=== PATIENT | male | born 1950 | race African-American/Black ===

== ENCOUNTER 2021-04-30 11:20 | Day surgery (SDC) | payer OTHER, SELFPAY ==
[2021-04-20 16:26] VITALS: BMI 26.9
--- NOTE | 2021-04-29 15:55 | P.CONAN_ITS ---
Documented by User: Blanche Perdue NP 04/29/21 16:07 HPI - Anesthesia Eval Consult details Narrative: 70yo M for Colonoscopy [facility] Active Problems Active Problems: All Active Problems (Updated 04/14/21 @ 11:12 by Dylan Shabazz MD) Screening for colon cancer (Acute) Loss of appetite (Acute) Erectile dysfunction (Acute) Physical exam (Acute ~04/07/21) Hypercholesterolemia (Acute) Hypertension (Acute) Past Medical History Medical History Hypercholesterolemia Hypertension Family History Family History (Updated 04/07/21 @ 14:01 by CARLA Tyler) Mother No problems noted. Father No problems noted. Surgical History Surgical History No pertinent past surgical history Social History Social History Housing: House Alcohol intake: current Alcohol intake frequency: holidays/special occasions only Alcohol type: beer and wine Patient Tobacco Use Status: Never used Tobacco e-Cigarette/Vaping Use: Never Used Second Hand Smoke Exposure: No Use of substances other than those prescribed or required for medical reasons: No Are you DNR?: No Advance Directives: No Advance Directives Information Provided: Yes service: No Current occupational status: retired Meds Allergies Allergy/AdvReac Type Severity Reaction Status Date / Time No Known Allergies Allergy Verified 04/07/21 14:13 Exam Exam Date and Time: April 29, 2021 1555 Height,Weight and Vital Signs: Height 5 ft 6 in Weight 75.75 kg Assessment and Plan Assessment Anesthesia Assessment: Chart Reviewed Documented by User: Onesimo Nava MD 04/30/21 12:23 [facility] Past Medical History Medical History Hypercholesterolemia Hypertension Family History Family History (Updated 04/07/21 @ 14:01 by CARLA Tyler) Mother No problems noted. Father No problems noted. Family history of problems with anesthesia: No Surgical History Surgical History No pertinent past surgical history History of Problems with Anesthesia: No Social History Social History Housing: House Alcohol intake: current Alcohol intake frequency: holidays/special occasions only Alcohol type: beer and wine Patient Tobacco Use Status: Never used Tobacco e-Cigarette/Vaping Use: Never Used Second Hand Smoke Exposure: No Use of substances other than those prescribed or required for medical reasons: No Are you DNR?: No Advance Directives: No Advance Directives Information Provided: Yes service: No Current occupational status: retired [employer] Allergies Allergy/AdvReac Type Severity Reaction Status Date / Time No Known Allergies Allergy Verified 04/07/21 14:13 Exam Airway Mallampati Class: II TM Dist: >3cm Neck ROM: Full Loose/Missing/Broken Teeth: Yes Heart: rrr+[id number] Lungs: cta b/l Assessment and Plan Assessment Anesthesia Assessment: Anesthesia Plan Discussed Final Anesthetic Review Family History of Problems with Anesthesia: No History of Problems with Anesthesia: No NPO: Yes ASA Class: III Final Preanesthetic Review: No Changes in Pt Med Stat, Meds/Allgs Chart Reviewed, Consent Obtained/Reviewed and Anes Risks/Benef Reviewed Patient Risk: Intermediate Procedure Risk: Intermediate Assessment/Block/Sedation in SS: Assess/Block/Sedation-SS Anesthetic Plan Anesthetic Plan: MAC: and Agree w/ Assess. and Plan Disposition: Standard PACU
[2021-04-30 11:43] VITALS: BP 143/86; PULSE 72; RESP 16; TEMP 36.8; O2SAT 98; BMI 25.8
--- NOTE | 2021-04-30 12:05 | MHC.SHP ---
Pre-Procedural Eval Section A Date of Service: 04/30/21 The patient is an INPATIENT: No The History & Physical has been completed within 30 days and I have reviewed it.: No Section B Chief Complaint: Screening Details of Present Illness: Colon cancer screening Relevant Family History (Specify if Yes): No Relevant Social History: None Present Medications: see Short Stay Collaborative assessment Medical History: Significant History (Hypertension, hypercholesterolemia) History of Previous Operations: Relevant previous surgery/procedure and date(s) (apendectomy 30 yrs ago) Allergies: Allergies Allergy/AdvReac Type Severity Reaction Status Date / Time No Known Allergies Allergy Verified 04/07/21 14:13 Review of Systems Sugical H&P ROS: Negative: Constitution, Cardiovascular, Respiratory and Gastrointestinal Exam Surgical H&P Exam: Normal: Heart, Normal: Lungs, Normal: Extremities and Normal: Abdomen Plan Diagnosis/Plan: Unchanged I have reviewed the history and physical and performed a pertinent physical examination on my patient. No changes have occurred unless specified.
--- NOTE | 2021-04-30 12:16 | P.OP_ITS ---
Operative Note Operative Note Date of Service: 04/30/21 Narrative: Pre-op diagnosis:?Colon cancer screening - pt scheduled for colonoscopy by his PCP via Direct access Post-op diagnosis:?other (Colon polyps, hemorrhoids) Procedure:? COLONOSCOPY TILL CECUM WITH BIOPSIES, SNARE POLYPECTOMY AND SUBMUCOSAL INJECTION Consent: Indications for the procedure and potential complications of bleeding, perforation, reaction to medications and missed diagnosis were discussed with the patient and informed consent was obtained. Instrument: Olympus PCF H 190 L variable stiffness pediatric colonoscope Monitoring: Vital signs and clinical assessment, intermittent blood pressure monitoring, continuous EKG monitoring, Pulse oximetry and Carbon Dioxide monitoring were done throughout the procedure. Colon withdrawl time was 18 minutes. Procedure: The patient was placed in the left lateral decubitis position and pre-procedure medications were administered. After a digital rectal examination of the ano-rectum, the video colonoscope was inserted into the rectum and advanced through the colon to the cecum. The colonoscope was slowly withdrawn in a retrograde panoramic fashion and the colon mucosa was carefully examined including a retroflexed view of the rectum. Findings and interventions are described below. Procedure Difficulty:? Colon was long and tortuous and there was some mloop formation - no manuvers were required. Findings: Terminal Ileum: Not evaluated Cecum:? Normal Ascending Colon:? Normal Transverse Colon:? Normal Descending Colon:? Normal Sigmoid Colon:? A 2-3 mm sessile polyp removed with a cold biopsy. A 2 to 2.5 cms pedunculated polyp at 30 cms removed with a hot snare.? Polypectomy site was marked by adrienne ink (submucosal injection). Rectum:? Normal Ano-rectum:? Moderate internal hemorrhoids Colon preparation:? Good? Impression and Post Procedure Diagnosis: Colonoscopy Findings: One medium sized and one small polyps removed Moderate hemorrhoids on retroflexed exam. Plan: Patient will be sent a letter with pathology results and recommendations for timing of next colonoscopy. Patient has an appointment on 07/29/21 with his PCP. Repeat Colonoscopy interval based on path results - in 2 years if polyps are adenomatous to check polypectomy site in the sigmoid colon and 10 years if polyps are hyperplastic. (Adult colonoscope for future colonoscopies). Above findings were reviewed with the patient and colon polyps handout was given in the discharge area Surgeon:?Destin Vaughn MD Anesthesia:?MAC (Fany Egan CRNA) Was an Assurance Assistant used for this Procedure?:?Yes Assurance Assistant:?Billie Connors Estimated blood loss (mL):?0 Pathology:?other (A- SIGMOID POLYPS X 2 AT 30CM) Condition:?stable Disposition:?PACU
[2021-04-30] MEDS: Lactated Ringers 1,000 ML 100 ML IVCONT (12:17)
[2021-04-30 13:06] VITALS: BP 111/70; PULSE 66; RESP 20; TEMP 37.2; O2SAT 100
[2021-04-30 13:38] VITALS: BP 131/70; PULSE 68; RESP 16; TEMP 37.2; O2SAT 99
== END 2021-04-30 14:06 | disposition home or self-care (01) ==
PROVIDERS: PCP Internal Medicine; Visit Provider Internal Medicine Gastroenterology
PROC: 0DJD8ZZ Inspection of Lower Intestinal Tract, Via Natural or Artificial Opening Endoscopic (ICD-10-PCS; CPT 45378; principal; 2021-04-30 12:40)
DX: Z12.11 Encounter for screening for malignant neoplasm of colon (principal); D12.5 Benign neoplasm of sigmoid colon; K64.8 Other hemorrhoids; I10 Essential (primary) hypertension; E78.00 Pure hypercholesterolemia, unspecified; Z79.899 Other long term (current) drug therapy
CPT/HCPCS: 45385; 45380; 45381; 88305

== ENCOUNTER 2021-12-16 13:54 | Outpatient (REF) | payer OTHER, SELFPAY ==
[2021-12-16 14:38] LABS: Hematocrit 36.7 % (42.0-52.0); Hemoglobin 12.9 g/dl (14.0-18.0); Mean Corpuscular HGB Conc 35.1 g/dl (31.0-36.0); Mean Corpuscular Hemoglobin 30.1 pg (27.0-33.0); Mean Corpuscular Volume 85.5 fL (80.0-98.0); Mean Platelet Volume 9.1 fL (9.4-12.4); Platelet Count 306 X10*3/uL (160-400); Red Blood Count 4.29 X10*6/uL (4.60-5.80); Red Cell Distribution Width 13.2 % (11.0-16.0); White Blood Count 4.5 X10*3/uL (4.8-10.8)
[2021-12-16 15:46] LABS: Alanine Aminotransferase 18 U/L (0-40); Albumin Level 4.7 g/dL (3.5-5.0); Alkaline Phosphatase 46 U/L (39-117); Anion Gap 15 (12-20); Aspartate Amino Transferase 14 U/L (5-37); Bilirubin Direct 0.3 mg/dL (0.0-0.5); Bilirubin Total 0.8 mg/dL (0.0-1.0); Blood Urea Nitrogen 12 mg/dL (9-16); Calcium 9.1 mg/dL (8.4-10.2); Carbon Dioxide 30 mmol/L (22-29); Chloride 101 mmol/L (96-108); Cholesterol 166 mg/dL; Estimated Glomerular Filt Rate > 60; Glucose Random 107 mg/dL (60-115); HDL Cholesterol 34 mg/dL; LDL Cholesterol Calculated 93 mg/dl; Potassium 3.3 mmol/L (3.3-5.1); Sodium 143 mmol/L (135-145); Total Protein 7.6 g/dL (6.5-8.0); Triglycerides 195 mg/dL
[2021-12-16 16:07] LABS: Thyroid Stimulating Hormone 1.62 uIU/mL (0.32-4.0)
[2021-12-16 17:29] LABS: Appearance Urine Cloudy; Color Urine Yellow; Glucose Urine UA Negative (Negative); Leukocyte Esterase Urine Negative (Negative); Nitrite Urine Negative (Negative); Specific Gravity - Urine 1.015 (1.005-1.025); Urine Blood Negative (Negative); Urine Ketones Negative (Negative); Urine Protein Negative (Neg-Trace)
== END 2021-12-16 13:55 | disposition home or self-care (01) ==
LOC: HO.LAB 13:54
PROVIDERS: PCP Internal Medicine; Visit Provider Nurse Practitioner Family
DX: I10 Essential (primary) hypertension (principal)
CPT/HCPCS: 36415; 80048; 80061; 80076; 81003; 84443; 85027

== ENCOUNTER 2022-03-31 10:59 | Outpatient (REF) | payer OTHER, SELFPAY ==
[2022-03-31 11:58] LABS: Hematocrit 37.9 % (42.0-52.0); Hemoglobin 13.3 g/dl (14.0-18.0); Mean Corpuscular HGB Conc 35.1 g/dl (31.0-36.0); Mean Corpuscular Hemoglobin 30.4 pg (27.0-33.0); Mean Corpuscular Volume 86.7 fL (80.0-98.0); Mean Platelet Volume 9.3 fL (9.4-12.4); Platelet Count 318 X10*3/uL (160-400); Red Blood Count 4.37 X10*6/uL (4.60-5.80); White Blood Count 5.1 X10*3/uL (4.8-10.8)
[2022-03-31 13:01] LABS: Alanine Aminotransferase 16 U/L (0-40); Albumin Level 4.8 g/dL (3.5-5.0); Alkaline Phosphatase 49 U/L (39-117); Anion Gap 12 (12-20); Aspartate Amino Transferase 13 U/L (5-37); Bilirubin Direct 0.3 mg/dL (0.0-0.5); Bilirubin Total 1.1 mg/dL (0.0-1.0); Blood Urea Nitrogen 12 mg/dL (9-16); Calcium 9.1 mg/dL (8.4-10.2); Carbon Dioxide 32 mmol/L (22-29); Chloride 103 mmol/L (96-108); Cholesterol 166 mg/dL; Estimated Glomerular Filt Rate > 60; Glucose Random 131 mg/dL (60-115); HDL Cholesterol 40 mg/dL; LDL Cholesterol Calculated 98 mg/dl; Potassium 3.6 mmol/L (3.3-5.1); Prostate Specific Antigen Scr 1.28 ng/mL (<0.05-4.0); Sodium 143 mmol/L (135-145); Thyroid Stimulating Hormone 1.93 uIU/mL (0.32-4.0); Total Protein 7.5 g/dL (6.5-8.0); Triglycerides 141 mg/dL
== END 2022-03-31 11:00 | disposition home or self-care (01) ==
LOC: HO.LAB 10:59
PROVIDERS: PCP Internal Medicine; Visit Provider Internal Medicine
DX: Z12.5 Encounter for screening for malignant neoplasm of prostate (principal); I10 Essential (primary) hypertension
CPT/HCPCS: 36415; 80048; 80061; 80076; 84153; 84443; 85027

== ENCOUNTER 2022-06-11 09:43 | Outpatient (REF) | payer OTHER, SELFPAY ==
--- NOTE | ~2022-06-11 | XR_ITS ---
EXAMINATION: XR KNEE, LEFT CLINICAL INFORMATION: Arthritis COMPARISON: None TECHNIQUE: Four views of the left knee. FINDINGS: Moderate medial compartment joint space narrowing, marginal osteophytes. Tibial spine spurring. Small patellar osteophytes. Limited evaluation of the patellofemoral joint space. Lateral compartment is maintained. No acute fracture or dislocation. Moderate joint effusion. Quadriceps tendon insertional enthesopathy. Vascular calcification. Small chronic appearing ossification adjacent to the fibular head. XR/XR knee LT 4V IMPRESSION: Moderate medial compartment osteoarthritis. Patellofemoral compartment arthritis. Moderate effusion.
== END 2022-06-11 09:44 | disposition home or self-care (01) ==
LOC: HO.HMGCX 09:43
PROVIDERS: PCP Internal Medicine; Visit Provider Internal Medicine
DX: M17.12 Unilateral primary osteoarthritis, left knee (principal)
CPT/HCPCS: 73564

== ENCOUNTER 2022-07-07 08:27 | Outpatient (REF) | payer OTHER, SELFPAY ==
--- NOTE | ~2022-07-07 | XR_ITS ---
STUDY: 3 VIEWS OF THE LEFT KNEE CLINICAL INDICATION: Pain COMPARISON: Knee radiographs 06/11/2022 XR/XR knee LT 2V FINDINGS/IMPRESSION: Patella liz. Joint effusion is present, improved in comparison to prior study. There is tricompartmental osteoarthritis, worse in the medial compartment. No acute fractures or dislocations. Vascular calcifications noted posteriorly.
--- NOTE | ~2022-07-07 | XR_ITS ---
STUDY: 3 VIEWS OF THE LEFT KNEE CLINICAL INDICATION: Pain COMPARISON: Knee radiographs 06/11/2022 XR/XR knee standing BI FINDINGS/IMPRESSION: Patella liz. Joint effusion is present, improved in comparison to prior study. There is tricompartmental osteoarthritis, worse in the medial compartment. No acute fractures or dislocations. Vascular calcifications noted posteriorly.
== END 2022-07-07 08:28 | disposition home or self-care (01) ==
LOC: HO.HOSX 08:27
PROVIDERS: PCP Internal Medicine; Visit Provider Orthopaedic Surgery
DX: M17.12 Unilateral primary osteoarthritis, left knee (principal); M25.462 Effusion, left knee
CPT/HCPCS: 20610; 73560; 73565; 99202; J1100

== ENCOUNTER → 2022-08-29 08:52 | Outpatient (BNVA) | payer OTHER, SELFPAY | PROVIDERS: PCP Internal Medicine; Visit Provider Orthopaedic Surgery | DX: M17.12 Unilateral primary osteoarthritis, left knee (principal) | CPT/HCPCS: 99212 ==

== ENCOUNTER → 2022-09-26 07:56 | Outpatient (BNVA) | payer OTHER, SELFPAY | PROVIDERS: PCP Internal Medicine; Visit Provider Orthopaedic Surgery | DX: M17.12 Unilateral primary osteoarthritis, left knee (principal) | CPT/HCPCS: 99212; J1100 ==

== ENCOUNTER 2022-11-14 13:46 | Outpatient (AMB) | payer OTHER, SELFPAY ==
--- NOTE | 2022-11-14 13:55 | MHC.OFFVIS ---
Intake Intake Visit Reasons: OV-LT TKA 01/17/23 NE Intake Note: Tobi is a 71 year old male who presents today for a follow up of his left knee, he is booked for Left TKA 01/17/23. Allergies No Known Allergies Allergy (Verified 09/26/22 08:13) HPI OV-LT TKA 01/17/23 NE HPI Details Tobi is a 71 year old man with severe left knee OA. He was last injected on 07/07/22, and is scheduled for a left TKA on 01/17/23. He had some questions about his surgery. He is planning to return to [facility] for several weeks to stay with his before he returns to have surgery. [facility] Medical History Hypercholesterolemia Hypertension Osteoarthritis of left knee Surgical History History of colonoscopy Family History Mother No problems noted. Father No problems noted. Social History Housing: House Alcohol intake: current Alcohol intake frequency: holidays/special occasions only Alcohol type: beer and wine Patient Tobacco Use Status: Never used Tobacco e-Cigarette/Vaping Use: Never Used Second Hand Smoke Exposure: No service: No Current occupational status: retired Cognitive needs: No Hearing needs: No Vision needs: Yes (glasses) Review of Systems Const All systems reviewed & are unremarkable except as noted in HPI and below Physical Exam Const General: no acute distress and alert Orientation/consciousness: patient oriented x3 Neuro General: patient oriented x3 Extrem Other: Left knee varus. Antalgic gait and medial compartment TTP. Psych Appearance: grossly normal Affect: normal affect Attitude: cooperative Results Reviewed Results Reviewed: I personally reviewed relevant radiographs. Joint effusion is present, improved in comparison to prior study. There is tricompartmental osteoarthritis, worse in the medial compartment. No acute fractures or dislocations. Vascular calcifications noted posteriorly. Assessment & Plan Assessment & Plan (1) Osteoarthritis of left knee: Code(s): M17.12 - Unilateral primary osteoarthritis, left knee Plan: This is a 71 year old man with severe left knee OA, with varus alignment. He has pain with daily activity, worse with standing from a seated position, and had mild relief from his most recent steroid injection on 07/07/22. He is scheduled for a left TKA on 01/17/23, and would like to speak with Neris concerning the surgery. I recommend he continue to remain active as tolerated, using his unloading brace. He would like to continue working until the end of November. He is scheduled for surgery and we will see him for his pre-operative education and clearance appointment on 01/12/23. Plan Scribed for Nabeel Varela MD by Jason Garcia, medical front desk specialist, on 11/14/22 at 2:20 PM, EST. Coding Level of Care Code Est Pt Level 3 (97998) Diagnoses Osteoarthritis of left knee M17.12
== END 2022-11-14 14:37 | disposition home or self-care (01) ==
PROVIDERS: PCP Internal Medicine; Visit Provider Orthopaedic Surgery
DX: M17.12 Unilateral primary osteoarthritis, left knee (principal)
CPT/HCPCS: 99213

== ENCOUNTER → 2022-11-14 13:46 | Outpatient (BNVA) | payer OTHER, SELFPAY | PROVIDERS: Visit Provider Orthopaedic Surgery | DX: M17.12 Unilateral primary osteoarthritis, left knee (principal) | CPT/HCPCS: 99212 ==

== ENCOUNTER 2023-01-02 09:32 | Outpatient (AMB) | payer OTHER, SELFPAY ==
--- NOTE | 2023-01-02 10:05 | A.OFFPC_ITS ---
Vital Signs 01/02/23 10:07 Height 5 ft 6 in Weight 169 lb 8 oz BMI 27.4 BP 110/72 Blood Pressure Location Lt brachial Position Sitting Pulse 69 Pulse Source Pulse Oximeter Pulse Oximetry (%) 98 Oxygen Delivery Method Room Air Intake Visit Reasons: L total knee arthroplasty-01/17 Intake Note: Patient is here for a Pre-op for left total knee arthoplasty scheduled with Dr Vega ([facility]) on 01/17/23. 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 Required: No Locksmith: Not Required per policy Accompanied by: Self / Same As Patient Allergies No Known Allergies Allergy (Verified 01/02/23 10:06) Tobacco use date assessed: 01/02/23 Fall risk assessment: No Falls in past year Last assessed Fall Risk: 01/02/23 Dental Screening Dental Screen Date: 01/02/23 Did you have a dental visit in the last 12 months?: Yes Did you have a dental problem in the last 6 months where you did not have access to dental care?: No Was dental information given to patient?: Patient has dentist HPI HPI Comments History of Present Illness Details 72-year-old male past medical history si gnificant for hypertension and hypercholesteremia. Patient Dr. Lepe presents today for preop visit. Patient undergoing a left total knee arthroplasty on 01/17/[address] Mcintyre under general anesthesia. Patient denies any previous complications to being under anesthesia. Patient denies any chest pain, palpitations, shortness of breath and syncope. Preop blood work ordered. EKG obtained in office. EKG: SR, possible LVH. [facility] Medical History Hypercholesterolemia Hypertension Osteoarthritis of left knee Surgical History History of colonoscopy Family History Mother No problems noted. Father No problems noted. Social History Housing: House Alcohol intake: current Alcohol intake frequency: holidays/special occasions only Alcohol type: beer and wine Patient Tobacco Use Status: Never used Tobacco e-Cigarette/Vaping Use: Never Used Second Hand Smoke Exposure: No service: No Current occupational status: retired Cognitive needs: No Hearing needs: No Vision needs: Yes (glasses) Questionnaire Thrive Questionnaire Date Thrive assessed: 08/18/22 LEVAR-7 AMB Questionnaire LEVAR-7 Date LEVAR - 7 assessed: 08/18/22 Source: Developed by Drs. Kevin Linder, Natividad Johnson, Filemon Flanagan and colleagues, with an educational jaret from [employer]. Review of Systems Const Denies chills, Denies fatigue, Denies fever(s) and Denies poor appetite Eyes Denies no additional complaints ENT Reports Normal hearing present Card Denies chest pain, Denies syncope, Denies rapid heart rate and Denies dyspnea Resp Denies cough and Denies dyspnea GI Denies change in stool character, Denies constipation, Denies diarrhea, Denies nausea and Denies vomiting Denies dysuria, Denies urinary frequency and Denies urinary urgency Neuro Reports Normal hearing present, Denies confusion and Denies syncope Psych Denies confusion Endo Denies fatigue Physical exam (Primary Care) Vital Signs: Last Vital Signs Pulse 69 01/02/23 10:07 BP 110/72 01/02/23 10:07 Pulse Ox 98 01/02/23 10:07 Oxygen Delivery Method Room Air 01/02/23 10:07 BMI result Body Mass Index 27.4 Tobacco/Smoking Status: Tobacco use Status Tobacco use date assessed 01/02/23 01/02/23 11:04 Patient Tobacco Use Status Never used Tobacco 01/02/23 11:04 e-Cigarette/Vaping Use Never Used 01/02/23 11:04 Thrive Assessment: Date of Thrive Assessment Date Thrive assessed 08/18/22 01/02/23 11:04 Const General: No confusion Orientation/consciousness: No confusion HENMT Head: Yes normocephalic and Yes atraumatic Eyes Conjunctivae: conjunctivae normal Chest Chest palpation & inspection: normal inspection of the chest Resp Effort & Inspection: normal respiratory effort Auscultation: clear to auscultation bilaterally, no crackles, no rhonchi and no wheezes Cardio Rate: regular rate Rhythm: regular rhythm Heart sounds: S1 normal heart sound present and S2 normal heart sound present GI Inspection: Yes normal to inspection Neuro General: No confusion Cranial nerves: Yes Normal hearing present Extrem General: No edema Assessment and Plan Assessment & Plan (1) Essential hypertension: Code(s): I10 - Essential (primary) hypertension Plan: Continue on losartan 100 mg daily and amlodipine 20mg daily. Blood pressure optimal in office today (2) Preop examination: Code(s): Z01.818 - Encounter for other preprocedural examination Plan: EKG: SR, possible LVH. Pro-op labs ordered. Once preop labs reviewed an addendum will be made to this note with patient able to proceed with scheduled surgery. Patient advised to hold any blood thinning medications such as aspirin,ibuprofen or any other NSAIDs 1 week prior to procedure. Plan Keep scheduled follow up with pcp or follow up sooner if needed. Orders: Orders TSH reflex Free T4 Today Z01.812 - Encounter for preprocedural laboratory examination Complete Blood Count no Diff Today Z01.812 - Encounter for preprocedural laboratory examination Comprehensive Met. Panel Today Z01.812 - Encounter for preprocedural laboratory examination Prothrombin Time INR Today Z01.812 - Encounter for preprocedural laboratory examination Medications: Refilled simvastatin 20 mg PO BEDTIME 90 tabs 1RF Coding Level of Care Code Est Pt Level 3 (18153) Diagnoses Essential hypertension I10 Preop examination Z01.818
[2023-01-02 10:07] VITALS: BP 110/72; PULSE 69; O2SAT 98; BMI 27.4
== END 2023-01-02 12:16 | disposition home or self-care (01) ==
PROVIDERS: PCP Internal Medicine; Visit Provider Nurse Practitioner Family
DX: I10 Essential (primary) hypertension (principal); Z01.818 Encounter for other preprocedural examination
CPT/HCPCS: 99213

== ENCOUNTER 2023-01-02 11:39 | Outpatient (REF) | payer OTHER, SELFPAY ==
[2023-01-02 13:39] LABS: Hematocrit 37.3 % (42.0-52.0); Hemoglobin 13.3 g/dl (14.0-18.0); Mean Corpuscular HGB Conc 35.7 g/dl (31.0-36.0); Mean Corpuscular Hemoglobin 30.7 pg (27.0-33.0); Mean Corpuscular Volume 86.1 fL (80.0-98.0); Mean Platelet Volume 9.2 fL (9.4-12.4); Platelet Count 334 X10*3/uL (160-400); Red Blood Count 4.33 X10*6/uL (4.60-5.80); Red Cell Distribution Width 12.5 % (11.0-16.0); White Blood Count 4.9 X10*3/uL (4.8-10.8)
[2023-01-02 13:40] LABS: INTERNATIONAL NORM RATIO 0.8 (0.9-1.1); Prothrombin Time 10.3 SEC (11.1-13.3)
[2023-01-02 14:41] LABS: Alanine Aminotransferase 15 U/L (0-40); Albumin Level 4.5 g/dL (3.5-5.0); Alkaline Phosphatase 51 U/L (39-117); Anion Gap 13 (12-20); Aspartate Amino Transferase 13 U/L (5-37); Blood Urea Nitrogen 15 mg/dL (9-16); Calcium 9.6 mg/dL (8.4-10.2); Carbon Dioxide 28 mmol/L (22-29); Chloride 105 mmol/L (96-108); Estimated Glomerular Filt Rate > 60; Glucose Random 100 mg/dL (60-115); Potassium 3.1 mmol/L (3.3-5.1); Sodium 143 mmol/L (135-145); Total Protein 7.5 g/dL (6.5-8.0)
== END 2023-01-02 11:40 | disposition home or self-care (01) ==
LOC: HO.LAB 11:39
PROVIDERS: PCP Internal Medicine; Visit Provider Nurse Practitioner Family
DX: Z01.812 Encounter for preprocedural laboratory examination (principal); Z20.2 Contact with and (suspected) exposure to infections with a predominantly sexual mode of transmission
CPT/HCPCS: 36415; 80053; 84443; 85027; 85610

== ENCOUNTER 2023-01-12 12:48 | Outpatient (AMB) | payer OTHER, SELFPAY ==
--- NOTE | 2023-01-12 12:53 | A.OFFVIS_ITS ---
Intake Intake Visit Reasons: Preop LT TKA 01/17/23 NE Intake Note: Tobi a 72 year old male who presents today for a pre-operative left TKA, DOS 01/17/23 NE. Pain management agreement reviewed and signed. Allergies No Known Allergies Allergy (Verified 01/12/23 13:04) HPI HPI Comments History of Present Illness Details Mr. Epps presents to the office today for preop visit. He is scheduled for left total knee arthroplasty with Dr. Varela. He continues to have ongoing pain and difficulty with ambulation in the left knee, which is affecting his quality of life; therefore, he has elected to move forward with surgery. [facility] Medical History (Updated 01/12/23 @ 13:05 by Nilesh Johnston PA-C) Osteoarthritis of left knee Hypercholesterolemia Hypertension Surgical History Hx of appendectomy History of colonoscopy Family History Mother No problems noted. Father No problems noted. Social History Housing: House Are you a primary healthcare network consultant to a significant other at home: No Do you presently have visiting nurse or other home services: No Alcohol intake: current Alcohol intake frequency: holidays/special occasions only Alcohol type: beer and wine Patient Tobacco Use Status: Former Tobacco user Quit Date: as teenager Tobacco use type: Cigarette e-Cigarette/Vaping Use: Never Used Second Hand Smoke Exposure: No Use of substances other than those prescribed or required for medical reasons: No Have you been hit, kicked, punched, or otherwise hurt by someone within the past year? If so, by whom?: No Are you DNR?: No Advance Directives: No (states daughter is primary contact/HCP) Advance Directives Information Provided: Yes (as above noted) Advance Directives on File: No Recently lost weight without trying: No Eating poorly because of decreased appetite: No Nutrition Risks: No Nutritional Risk Poor oral hygiene: No (2 front upper teeth replaced ~ age 22-? implant done in [place] [facility]) service: No Current occupational status: retired Cognitive needs: No Hearing needs: No Vision needs: Yes (glasses) Review of Systems Const All systems reviewed & are unremarkable except as noted in HPI and below Physical Exam Const General: no acute distress and alert Orientation/consciousness: patient oriented x3 HEENT Head: Yes normal to inspection, Yes normocephalic and Yes atraumatic Eyes General: appearance normal, both eyes and all related structures Neck Neck: Yes normal visual inspection and Yes no lymphadenopathy Resp Effort & Inspection: normal respiratory effort and able to speak in complete sentences Cardio Rate: regular rate Peripheral pulses: Peripheral pulses 2+ throughout GI Inspection: Yes normal to inspection Palpation (GI): Soft to palpation Skin General skin exam: no rashes or lesions noted Neuro General: patient oriented x3 Extrem Other: Left knee: Skin is intact, no open wounds or abrasions. Range of motion is 0 to 110 degrees, Calf is supple, nontender, neurovascular intact. Psych Appearance: grossly normal Mental Status: mental status grossly normal Affect: normal affect Attitude: cooperative Assessment & Plan Assessment & Plan (1) Osteoarthritis of left knee: Code(s): M17.12 - Unilateral primary osteoarthritis, left knee Qualifiers: Osteoarthritis type: primary Qualified Code(s): M17.12 - [facility]ilateral [facility], left knee Plan: I discussed in detail the procedure and what to expect pre and post operatively. We discussed the risks, benefits and alternatives to the surgery as well as the rehabilitation course. The risks; which include, but are not limited to infection, bleeding, nerve injury, ongoing pain, swelling, and stiffness, pe rioperative risk of injury to bones and soft tissues, and blood clots. I?ve answered all questions and with their understanding they have consented to move forward with Left total knee arthroplasty with Dr. Varela Patient Instructions: Scribed for Nilesh Johnston PA-C, by Duy Shaver medical billing and coding specialist, on 01/12/2023. I, Nilesh Johnston PA-C, have personally reviewed and agree with the information entered by the scribe. Coding Level of Care Code Est Pt Level 3 (32443) Diagnoses Primary osteoarthritis of left knee M17.12 Osteoarthritis type: primary
== END 2023-01-12 13:31 | disposition home or self-care (01) ==
PROVIDERS: Visit Provider Physician Assistant
DX: M17.12 Unilateral primary osteoarthritis, left knee (principal)
CPT/HCPCS: 99213

== ENCOUNTER → 2023-01-12 12:48 | Outpatient (BNVA) | payer OTHER, SELFPAY | PROVIDERS: Visit Provider Physician Assistant | DX: M17.12 Unilateral primary osteoarthritis, left knee (principal) | CPT/HCPCS: 99212 ==

== ENCOUNTER 2023-01-17 07:57 | Inpatient (IN) | payer OTHER, SELFPAY ==
[2023-01-10 11:58] VITALS: BP 148/79; PULSE 72; RESP 20; O2SAT 97; BMI 27.8
--- NOTE | 2023-01-10 12:19 | P.CONAN_ITS ---
Documented by User: Blanche Perdue NP 01/16/23 08:55 HPI - Anesthesia Eval Consult details Narrative: 72yo M for Left Knee Replacement Total Medically optimized per PCP No recent illness No CP/SOB with >4 mets PMFSH Active Problems Active Problems: All Active Problems (Updated 07/07/22 @ 09:27 by Jason Garcia) Effusion, left knee (Acute) Essential hypertension (Acute) Screening for colon cancer (Acute) Loss of appetite (Acute) Erectile dysfunction (Acute) Physical exam (Acute ~04/07/21) Osteoarthritis of left knee (Acute) Past Medical History Medical History (Updated 01/12/23 @ 13:05 by Nilesh Johnston PA-C) Osteoarthritis of left knee Hypercholesterolemia Hypertension Family History Family History Mother No problems noted. Father No problems noted. Family history of problems with anesthesia: No Surgical History Surgical History Hx of appendectomy History of colonoscopy History of Problems with Anesthesia: No Social History Social History Housing: House Are you a primary resident care manager to a significant other at home: No Do you presently have visiting nurse or other home services: No Alcohol intake: current Alcohol intake frequency: holidays/special occasions only Alcohol type: beer and wine Patient Tobacco Use Status: Former Tobacco user Quit Date: as teenager Tobacco use type: Cigarette e-Cigarette/Vaping Use: Never Used Second Hand Smoke Exposure: No Use of substances other than those prescribed or required for medical reasons: No Have you been hit, kicked, punched, or otherwise hurt by someone within the past year? If so, by whom?: No Are you DNR?: No Advance Directives: No (states daughter is primary contact/HCP) Advance Directives Information Provided: Yes (as above noted) Advance Directives on File: No Recently lost weight without trying: No Eating poorly because of decreased appetite: No Nutrition Risks: No Nutritional Risk Poor oral hygiene: No (2 front upper teeth replaced ~ age 22-? implant done in [place]) service: No Current occupational status: retired Cognitive needs: No Hearing needs: No Vision needs: Yes (glasses) Meds Allergies Allergy/AdvReac Type Severity Reaction Status Date / Time No Known Allergies Allergy Verified 01/12/23 13:04 Home Medications Medication Instructions Recorded Confirmed Last Taken Type acetaminophen 650 mg 650 mg PO Q8H 12/16/21 01/10/23 Unknown History tablet,extended release (Tylenol Arthritis Pain) amlodipine 10 mg tablet 20 mg PO QAM 01/10/23 01/10/23 Unknown History cetirizine 10 mg tablet 10 mg PO DAILY PRN seasonal 01/10/23 01/10/23 Unknown History allergies losartan 100 mg tablet 100 mg PO QAM 01/10/23 01/10/23 Unknown History melatonin 10 mg tablet 10 mg PO BEDTIME PRN Insomnia 01/10/23 01/10/23 Unknown History Exam Exam Date and Time: January 10, 2023 1219 Height,Weight and Vital Signs: Height 5 ft 6 in Weight 78.018 kg Last Vital Signs Pulse 72 01/10/23 11:58 Resp 20 01/10/23 11:58 BP 148/79 H 01/10/23 11:58 Pulse Ox 97 01/10/23 11:58 O2 Del Method Room Air 01/10/23 11:58 Pertinent Lab Results Pertinent Lab Results: Lab Results 01/10/23 01/10/23 01/10/23 Range/Units 12:15 13:07 13:08 Sodium 139 (135-145) mmol/L Potassium 3.4 (3.3-5.1) mmol/L Chloride 107 (96-108) mmol/L Carbon Dioxide 23 (22-29) mmol/L Anion Gap 12 (12-20) BUN 10 (9-16) mg/dL Creatinine 0.81 (0.5-1.4) mg/dL Estim Creat Clear Calc 83.4 Estimated GFR > 60 Nasal Screen MRSA (PCR) NEGATIVE (Negative) Nasal S. aureus Screen NEGATIVE (Negative) Nasal MRSA/S.aureus Interp SEE NOTE Blood Type O Positive Antibody Screen NEGATIVE Laboratory Tests 01/02/23 11:46 WBC 4.9 Hgb 13.3 L Hct 37.3 L Plt Count 334 Narrative Narrative: EKG 12/2022 Vent. Rate : 061 BPM Atrial Rate : 061 BPM P-R Int : 158 ms QRS Dur : 084 ms QT Int : 398 ms P-R-T Axes : 007 040 022 degrees QTc Int : 400 ms Normal sinus rhythm Minimal voltage criteria for LVH, may be normal variant ( Sokolow-Hussein ) Nonspecific ST and T wave abnormality Abnormal ECG No previous ECGs available Airway Mallampati Class: III TM Dist: >3cm Neck ROM: Full Loose/Missing/Broken Teeth: Upper (7-10 implants, stable) Heart: RR Lungs: CTAB Assessment and Plan Assessment Anesthesia Assessment: Anesthesia Plan Discussed and PAT Visit Final Anesthetic Review Family History of Problems with Anesthesia: No History of Problems with Anesthesia: No Documented by User: Mimi Fletcher MD 01/17/23 08:14 [facility] Past Medical History Medical History (Updated 01/12/23 @ 13:05 by Nilesh Johnston PA-C) Osteoarthritis of left knee Hypercholesterolemia Hypertension Family History Family History Mother No problems noted. Father No problems noted. Surgical History Surgical History Hx of appendectomy History of colonoscopy Social History Social History Housing: House Are you a primary resident care manager to a significant other at home: No Do you presently have visiting nurse or other home services: No Alcohol intake: current Alcohol intake frequency: holidays/special occasions only Alcohol type: beer and wine Patient Tobacco Use Status: Former Tobacco user Quit Date: as teenager Tobacco use type: Cigarette e-Cigarette/Vaping Use: Never Used Second Hand Smoke Exposure: No Use of substances other than those prescribed or required for medical reasons: No Have you been hit, kicked, punched, or otherwise hurt by someone within the past year? If so, by whom?: No Are you DNR?: No Advance Directives: No (states daughter is primary contact/HCP) Advance Directives Information Provided: Yes (as above noted) Advance Directives on File: No Recently lost weight without trying: No Eating poorly because of decreased appetite: No Nutrition Risks: No Nutritional Risk Poor oral hygiene: No (2 front upper teeth replaced ~ age 22-? implant done in [facility]) service: No Current occupational status: retired Cognitive needs: No Hearing needs: No Vision needs: Yes (glasses) Meds Allergies Allergy/AdvReac Type Severity Reaction Status Date / Time No Known Allergies Allergy Verified 01/12/23 13:04 Home Medications Medication Instructions Recorded Confirmed Last Taken Type acetaminophen 650 mg 650 mg PO Q8H 12/16/21 01/10/23 Unknown History tablet,extended release (Tylenol Arthritis Pain) amlodipine 10 mg tablet 20 mg PO QAM 01/10/23 01/10/23 Unknown History cetirizine 10 mg tablet 10 mg PO DAILY PRN seasonal 01/10/23 01/10/23 Unknown History allergies losartan 100 mg tablet 100 mg PO QAM 01/10/23 01/10/23 Unknown History melatonin 10 mg tablet 10 mg PO BEDTIME PRN Insomnia 01/10/23 01/10/23 Unknown History Assessment and Plan Final Anesthetic Review NPO: Yes ASA Class: II Final Preanesthetic Review: No Changes in Pt Med Stat, Meds/Allgs Chart Reviewed, Consent Obtained/Reviewed and Anes Risks/Benef Reviewed Patient Risk: Intermediate Procedure Risk: Intermediate Documented by User: Pedro Luis Jasmine MD 01/17/23 08:18 [facility] Past Medical History Medical History (Updated 01/12/23 @ 13:05 by Nilesh Johnston PA-C) Osteoarthritis of left knee Hypercholesterolemia Hypertension Family History Family History Mother No problems noted. Father No problems noted. Surgical History Surgical History Hx of appendectomy History of colonoscopy Social History Social History Housing: House Are you a primary resident care manager to a significant other at home: No Do you presently have visiting nurse or other home services: No Alcohol intake: current Alcohol intake frequency: holidays/special occasions only Alcohol type: beer and wine Patient Tobacco Use Status: Former Tobacco user Quit Date: as teenager Tobacco use type: Cigarette e-Cigarette/Vaping Use: Never Used Second Hand Smoke Exposure: No Use of substances other than those prescribed or required for medical reasons: No Have you been hit, kicked, punched, or otherwise hurt by someone within the past year? If so, by whom?: No Are you DNR?: No Advance Directives: No (states daughter is primary contact/HCP) Advance Directives Information Provided: Yes (as above noted) Advance Directives on File: No Recently lost weight without trying: No Eating poorly because of decreased appetite: No Nutrition Risks: No Nutritional Risk Poor oral hygiene: No (2 front upper teeth replaced ~ age 22-? implant done in [facility]) service: No Current occupational status: retired Cognitive needs: No Hearing needs: No Vision needs: Yes (glasses) Meds Allergies Allergy/AdvReac Type Severity Reaction Status Date / Time No Known Allergies Allergy Verified 01/12/23 13:04 Home Medications Medication Instructions Recorded Confirmed Last Taken Type acetaminophen 650 mg 650 mg PO Q8H 12/16/21 01/10/23 Unknown History tablet,extended release (Tylenol Arthritis Pain) amlodipine 10 mg tablet 20 mg PO QAM 01/10/23 01/10/23 Unknown History cetirizine 10 mg tablet 10 mg PO DAILY PRN seasonal 01/10/23 01/10/23 Unknown History allergies losartan 100 mg tablet 100 mg PO QAM 01/10/23 01/10/23 Unknown History melatonin 10 mg tablet 10 mg PO BEDTIME PRN Insomnia 01/10/23 01/10/23 Unknown History Assessment and Plan Final Anesthetic Review ASA Class: III Anesthetic Plan Anesthetic Plan: Spinal and Regional Block Disposition: Standard PACU
--- NOTE | 2023-01-10 12:41 | ECG_ITS ---
Test Reason : preop Blood Pressure : / mmHG Vent. Rate : 061 BPM Atrial Rate : 061 BPM P-R Int : 158 ms QRS Dur : 084 ms QT Int : 398 ms P-R-T Axes : 007 040 022 degrees QTc Int : 400 ms Normal sinus rhythm Minimal voltage criteria for LVH, may be normal variant ( Sokolow-Hussein ) Nonspecific ST and T wave abnormality Abnormal ECG No previous ECGs available Referred By: Nilesh Johnston Electronically Signed By:JANELL CHAVES
[2023-01-10 14:00] LABS: MRSA Nasal PCR NEGATIVE (Negative); SA Nasal PCR NEGATIVE (Negative)
[2023-01-10 15:57] LABS: Anion Gap 12 (12-20); Blood Urea Nitrogen 10 mg/dL (9-16); Carbon Dioxide 23 mmol/L (22-29); Chloride 107 mmol/L (96-108); Creatinine Clr Calc Pharmacy 83.4; Estimated Glomerular Filt Rate > 60; Potassium 3.4 mmol/L (3.3-5.1); Sodium 139 mmol/L (135-145)
[2023-01-17] VITALS (11 sets, daily range): BP systolic 100–153; BP diastolic 58–82; PULSE 51–89; RESP 16–20; TEMP 36–37.1; O2SAT 93–100; BMI 29.5
--- NOTE | ~2023-01-17 | XR_ITS ---
EXAMINATION: XR KNEE, LEFT CLINICAL INFORMATION: Left knee arthroplasty COMPARISON: None available. TECHNIQUE: Frontal and Lateral views of the left knee. FINDINGS: There is a left total knee replacement and patellar resurfacing in anatomic alignment and position. Associated skin cuca, soft tissue and intra-articular air are consistent with recent surgery. XR/XR knee LT 2V IMPRESSION: Left total knee replacement in anatomic alignment and position.
--- NOTE | ~2023-01-17 | XR_ITS ---
EXAMINATION: XR CHEST CLINICAL INFORMATION: Fever. COMPARISON: None available. TECHNIQUE: Frontal view of the chest was obtained. FINDINGS: The cardiomediastinal silhouette is normal. There is no focal lung consolidation or pleural effusion. The bony structures and soft tissues are unremarkable. XR/XR chest 1V IMPRESSION: No evidence for active cardiopulmonary disease.
--- OUTSIDE RECORDS SUMMARY | 2023-01-17 08:03 | XMS_ITS | Patient Health Record ---
Author Name Unknown Organization [facility] Address [address] [place] [address] Care Team Providers Care Or Scrub Tech Name Role Phone Dylan Shabazz Primary Care Provider Lakisha Harkins M.D, M.P.H, Alie Unavailable Migration, Provider Unavailable Unavailable ALLERGIES No Known Allergies REASON FOR REFERRAL No Information MEDICATIONS Medication SIG (Take, Route, Frequency, Duration) Notes Start Date End Date Status amLODIPine Besylate *Please revi ew and pick correct strength-formulation from Medispan options. If intended option is not shown, discontinue and re-order from Quick Search* Active Flac 0.01 % 5 gtt in each affected ear 2 times a day for 14 days Active SOCIAL HISTORY Tobacco Use: Social History Observation Description Date Details (start date - stop date) Never Smoker NA - NA Sex Assigned At : Social History Observation Description Sex Assigned At Unknown Smoking: Question Answer Notes Are you a : Never Smoker Alcohol Screen Question Answer Notes Did you have a drink containing alcohol in the p ast year? No Points 0 Interpretation Negative PROBLEMS Problem Type ICD Code Onset Dates Problem Status W/U Status Risk SNOMED Code Notes Problem Hearing difficulty (H91.90) Active confirmed Hearing difficulty (747790478) Problem Bilateral hearing loss (H91.93) Active confirmed Bilateral hearing loss (86850720) VITAL SIGNS Blood pressure diastolic 80 mm Hg 10/20/2022 Height 67 in 10/20/2022 Blood pressure systolic 130 mm Hg 10/20/2022 Weight 160 lbs 10/20/2022 BMI 25.06 kg/m2 10/20/2022 Encounters Encounter Location Date Provider Diagnosis [facility] [address] [place] [address] 10/20/2022 Alie Du Otitis externa, eczematoid H60.549 and Hearing difficulty H91.90 [facility] [address] [facility] [address] [place] [address] 11/05/2022 Provider Migration Otitis externa, eczematoid H60.549 ASSESSMENTS Encounter Date Diagnosis Assessment Notes Treatment Notes Treatment Clinical Notes 10/20/2022 Hearing difficulty (ICD-10 - H91.90) recommend audio at patient's convenience 10/20/2022 Otitis externa, eczematoid (ICD-10 - H60.549) bilateral ear itching with normal exam. Discussed trial of fluocinonide or mineral oil prn 11/05/2022 Otitis externa, eczematoid (ICD-10 - H60.549) PLAN OF TREATMENT No Information Insurance Providers Payer Name Payer Address Payer Phone Subscriber Number Group Number Insured Name Patient Relationship to Insured Coverage Start Date Coverage End Date [facility] [address] [place] [phone] [id number] Tobi Epps Self - patient is the insured 9 MEDICAL (GENERAL) HISTORY Medical History History ICD Code hypertension high cholesterol
--- NOTE | 2023-01-17 08:33 | PHA.MEDREC ---
Pharmacy Consult ? Medication Reconciliation Pharmacy has REVIEWED the medication reconciliation.
[2023-01-17] MEDS: Lactated Ringers 1,000 ML 100 ML IVCONT ×2 (09:01→15:16)
--- NOTE | 2023-01-17 13:55 | PM.OP ---
Brief Operative Note Date of Service: 01/17/23 Pre-op diagnosis: Left knee OA Post-op diagnosis: same Procedure: Left TKA Implants: [place] Triath[employer] press fir posterior stabilized 07/26/12 Surgeon: Nabeel Varela MD Anesthesia: regional and spinal Was an Tape Sewing Machine Operator used for this Procedure?: Yes Tape Sewing Machine Operator: Nilesh Johnston Estimated blood loss (mL): 25 Tourniquet time (min): 60 IV fluids (mL): 800 Pathology: other Condition: stable Disposition: PACU
--- NOTE | 2023-01-17 15:15 | P.CONHOSP_ITS ---
History of Present Illness Data of Consult Service Date: 01/17/23 Requesting physician: Nilesh Johnston Primary Care Provider: Dylan Shabazz MD [facility] Reason for consult: Medical management 72-year-old male with history of hypertension and hypercholesterolemia admitted to Orthopedic surgery for management of osteoarthritis of the left knee s/p left TKA with consult placed hospitalist service for medical management. He is an occassional etoh user, denies cigarette smoking, and denies illicit drug use. He currently denies any complaints, just states he is hungry and wants to eat. He did have sspinal nerve block and did require straight catheterization in PACU, however is regaining sensation in his feet. Review of Systems 2 Review of Systems: Yes all other systems are reviewed and are negative [facility] Medical History Osteoarthritis of left knee Hypercholesterolemia Hypertension Family History Mother No problems noted. Father No problems noted. Surgical History Hx of appendectomy History of colonoscopy Social History Housing: House Are you a primary home care administrator to a significant other at home: No Do you presently have visiting nurse or other home services: No Alcohol intake: current Alcohol intake frequency: holidays/special occasions only Alcohol type: beer and wine Patient Tobacco Use Status: Former Tobacco user Quit Date: as teenager Tobacco use type: Cigarette e-Cigarette/Vaping Use: Never Used Second Hand Smoke Exposure: No Use of substances other than those prescribed or required for medical reasons: No Have you been hit, kicked, punched, or otherwise hurt by someone within the past year? If so, by whom?: No Are you DNR?: No Advance Directives: No (states daughter is primary contact/HCP) Advance Directives Information Provided: Yes (as above noted) Advance Directives on File: No Recently lost weight without trying: No Eating poorly because of decreased appetite: No Nutrition Risks: No Nutritional Risk Poor oral hygiene: No (2 front upper teeth replaced ~ age 22-? implant done in [place] [facility]) service: No Current occupational status: retired Cognitive needs: No Hearing needs: No Vision needs: Yes (glasses) Meds Allergies Allergy/AdvReac Type Severity Reaction Status Date / Time No Known Allergies Allergy Verified 01/12/23 13:04 Active Medications: Current Medications Acetaminophen (Acetaminophen 325 Mg Tablet) 650 mg PO Q6H PRN PRN Reason: Pain, Mild (Pain Scale 1-3) Aspirin (Aspirin 325 Mg Tablet) 325 mg PO BID [facility] Celecoxib (Celecoxib 200 Mg Capsule) 200 mg PO BID [facility] Docusate Sodium (Docusate Sodium 100 Mg Capsule) 100 mg PO BID [facility] Hydromorphone HCl (Hydromorphone Hcl 0.5 Mg/0.5 Ml Syringe) 0.25 mg IVPUSH Q4H PRN; Protocol PRN Reason: Pain, Severe (Pain Scale 7-10) Lactated Ringer's (Lr) 1,000 mls @ 100 mls/hr IVCONT .Q10H [facility] Stop: 01/18/23 13:32 Cefazolin Sodium/Dextrose (Ancef) 2 gm in 50 mls @ 100 mls/hr IV POSTOP ONE Stop: 01/17/23 17:29 Ondansetron HCl (Ondansetron Hcl 4 Mg/2 Ml Vial) 4 mg IVPUSH Q8H PRN PRN Reason: Nausea and Vomiting Oxycodone HCl (Oxycodone Hcl Immed Release 5 Mg Tablet) 5 mg PO Q4H PRN PRN Reason: Pain, Moderate(Pain Scale 4-6) Oxycodone HCl (Oxycodone Hcl Er 10 Mg Tab.Er.12h) 10 mg PO BID [facility] Sodium Chloride (0.9 % Sodium Chloride Flush 3 Ml Syringe) 3 ml IVFLUSH QSHIFT [facility] Home Medications Medication Instructions Recorded Confirmed Last Taken Type acetaminophen 650 mg 650 mg PO Q8H 12/16/21 01/10/23 Unknown History tablet,extended release (Tylenol Arthritis Pain) amlodipine 10 mg tablet 20 mg PO QAM 01/10/23 01/10/23 Unknown History cetirizine 10 mg tablet 10 mg PO DAILY PRN seasonal 01/10/23 01/10/23 Unknown History allergies losartan 100 mg tablet 100 mg PO QAM 01/10/23 01/10/23 Unknown History melatonin 10 mg tablet 10 mg PO BEDTIME PRN Insomnia 01/10/23 01/10/23 Unknown History Physical Exam 2 Vital Signs and Narrative: Vital Signs: Last Vital Signs Temp 96.9 F 01/17/23 14:18 Pulse 89 01/17/23 14:18 Resp 18 01/17/23 14:18 BP 153/74 H 01/17/23 14:18 Pulse Ox 93 01/17/23 14:18 O2 Del Method Room Air 01/17/23 14:18 BMI result Body Mass Index 27.8 Constitutional - Awake and Alert, No apparent distress Eyes - PERRLA, EOMI Cardiovascular - S1S2, RRR, No edema Respiratory - Normal lung expansion, Normal respiratory effort, No respiratory distress, CTA bilaterally Extremities - no calf tenderness bilaterally, no swelling Skin - Warm/Dry Neurological - Alert & oriented x3, sensation in tact Psychological - Appropriate affect Results Labs 01/10/23 13:08 Imaging Radiologist's Impressions: Impressions Knee X-Ray 01/17/23 14:04 IMPRESSION: Left total knee replacement in anatomic alignment and position. Assessment and Plan (1) Osteoarthritis of left knee: Qualifiers: Osteoarthritis type: primary Qualified Code(s): M17.12 - Unilateral primary osteoarthritis, left knee Status: Acute Plan 72-year-old male with history of hypertension and hypercholesterolemia admitted to Orthopedic surgery for management of osteoarthritis of the left knee s/p left TKA with consult placed hospitalist service for medical management. #OA of left knee s/p TKA POD 0 -plan per orthopedic surgery #HTN -reasonably controlled -resume amlodipine am #HLD -continue statin Thank you for allowing me to participate in this consult. Signing off at this time. Please do not hesitate to call for further questions. Time Spent With Patient Time: Total time managing care of this patient today ____ minutes.
[2023-01-17] MEDS: 0.9 % Sodium Chloride Flush 3 ML SYRINGE IVFLUSH (15:16)
[2023-01-17] MEDS: ceFAZolin Sodium/Dextrose,Iso 2 GM/50 ML PIGGYBACK IV (16:21)
[2023-01-17] MEDS: oxyCODONE HCl Immed Release 5 MG TABLET PO (16:26)
[2023-01-17] MEDS: Acetaminophen 325 MG TABLET 650 MG PO (16:27)
[2023-01-17] MEDS: Melatonin 3 MG TABLET 12 MG PO (20:07)
[2023-01-17] MEDS: Celecoxib 200 MG CAPSULE PO (20:07)
[2023-01-17] MEDS: Docusate Sodium 100 MG CAPSULE PO (20:07)
[2023-01-17] MEDS: oxyCODONE HCl ER 10 MG TAB.ER.12H PO (20:07)
[2023-01-18] VITALS (7 sets, daily range): BP systolic 113–164; BP diastolic 61–78; PULSE 66–85; RESP 16–19; TEMP 35.9–37.2; O2SAT 95–98
[2023-01-18] MEDS: Lactated Ringers 1,000 ML 100 ML IVCONT ×2 (01:00→11:12)
[2023-01-18] MEDS: oxyCODONE HCl Immed Release 5 MG TABLET PO ×5 (03:41→20:24)
[2023-01-18] MEDS: Acetaminophen 325 MG TABLET 650 MG PO ×3 (03:41→20:23)
[2023-01-18 07:12] LABS: MANUAL DIFF FLAG NO
[2023-01-18 07:17] LABS: Basophils Percent Auto 0.3 % (0-2); Eosinophils Percent Auto 0.4 % (0-4); Hematocrit 32.9 % (42.0-52.0); Hemoglobin 11.2 g/dl (14.0-18.0); Imm Gran Abs Auto 0.01 X10*3/uL (0.00-0.03); Imm Gran Pct Auto 0.1 % (0.0-0.4); Lymphocytes Absolute Auto 2.1 X10*3/uL (1.2-4.9); Lymphocytes Percent Auto 27.1 % (20-40); Mean Corpuscular Hemoglobin 29.9 pg (27.0-33.0); Monocytes Absolute Auto 0.6 X10*3/uL (0.1-1.2); Neutrophils Absolute Auto 4.9 x10*3/uL (2.0-8.3); Neutrophils Percent Auto 64.1 % (45-73); Platelet Count 251 X10*3/uL (160-400); Red Blood Count 3.74 X10*6/uL (4.60-5.80); Red Cell Distribution Width 12.2 % (11.0-16.0); White Blood Count 7.6 X10*3/uL (4.8-10.8)
[2023-01-18 07:33] LABS: Anion Gap 10 (12-20); Blood Urea Nitrogen 15 mg/dL (9-16); Calcium 8.5 mg/dL (8.4-10.2); Carbon Dioxide 25 mmol/L (22-29); Chloride 106 mmol/L (96-108); Creatinine Clr Calc Pharmacy 83.6; Estimated Glomerular Filt Rate > 60; Glucose Fasting 155 mg/dL (60-99); Potassium 3.4 mmol/L (3.3-5.1); Sodium 138 mmol/L (135-145)
--- NOTE | 2023-01-18 07:37 | PM.PNORT ---
Subjective Subjective Date of Service: 01/18/23 Interval history: POD1 s/pLTKA Patient is resting in bed comfortably No overnight events Pain is managed No additional complaints Physical Exam Vital Signs: Vital Signs: Last Vital Signs Temp 96.7 F L 01/18/23 03:30 Pulse 72 01/18/23 03:30 Resp 16 01/18/23 03:30 BP 113/69 01/18/23 03:30 Pulse Ox 97 01/18/23 03:30 O2 Del Method Room Air 01/18/23 03:30 BMI result Body Mass Index 29.5 Const: General: cooperative, healthy appearing and no acute distress Orientation/consciousness: patient oriented x3 HEENT: Head: Yes normal to inspection, Yes normocephalic and Yes atraumatic Eyes: General: appearance normal, both eyes and all related structures Neck: Neck: Yes normal visual inspection and Yes no lymphadenopathy Resp: Effort & Inspection: normal respiratory effort and able to speak in complete sentences Cardio: Rate: regular rate Peripheral pulses: Peripheral pulses 2+ throughout GI: Inspection: Yes normal to inspection Palpation (GI): Soft to palpation Skin: General skin exam: no rashes or lesions noted Lesions: no lesions Rashes: no rashes Neuro: General: patient oriented x3 Extrem: Other: Left knee dressing is c/d/i. Able to dorsi/plantar flex. Calf is supple and nontender. Sensation intact. Pedal pulse intact. n Psych: Appearance: grossly normal Mental Status: mental status grossly normal Affect: normal affect Attitude: cooperative Procedures Date of Service Date of Service: 01/18/23 Progress Note: A&P Assessment and plan (1) Status post total knee replacement, left: Status: Acute Plan Continue pain mgmnt Begin ASA dvt ppx begin PT for LTKA Dispo planning-Pending PT eval, pain mgmnt Time Spent With Patient Time: Total time managing care of this patient today ____ minutes. Quality Stroke Does the patient have a stroke diagnosis?: No VTE Prior VTE?: No VTE Risk Level:: Medical - moderate - high VTE Device Contraindication: N/A - Device Ordered VTE Drug Contraindication: N/A - Med Ordered
[2023-01-18] MEDS: Celecoxib 200 MG CAPSULE PO ×2 (08:12→20:24)
[2023-01-18] MEDS: oxyCODONE HCl ER 10 MG TAB.ER.12H PO ×2 (08:12→20:24)
[2023-01-18] MEDS: Docusate Sodium 100 MG CAPSULE PO ×2 (08:12→20:23)
--- NOTE | 2023-01-18 09:29 | MHC.CM.PN ---
Addendum entered by Dinorah Cruz 01/18/23 09:42: CM MET WITH PT AND DAUGHTER AT BEDSIDE THEY BOTH CONFIRM A HOME CARE AGENCY CAME TO THEIR HOME AND INDICATED THEY WOULD PROVIDE HIS PT SERVICES AT DC HOWEVER NEITHER ARE ABLE TO REMEMBER THE NAME OF THE AGENCY CM DID REFERENCE THE NOTE WRITTEN BY THE ORTHOPEDIC NURSE NAVIGATOR, HOWEVER IT IS NOT THERE PT SAYS HE DOES BELIEVE HE HAS THE CONTACT INFORMATION AT HOME BUT IS UNABLE TO RETRIEVE IT UNTIL HE GETS THERE Original Note: PT REPORTS HE LIVES WITH HIS AND SISTER AND IS INDEPENDENT WITH SELF CARE HE REPORTS CAFE SERVER HE HAD NO SERVICES AND USED ONLY A CANE PT CONFIRMS HE DOES HAVE A WALKER FOR AFTER DC HE ALSO REPORTS A VNA MET WITH HIM CAFE SERVER AND WILL PROVIDE SERVICES AT DC, HE DOES NOT KNOW THE NAME PT SAYS HE HAS A HCP NAMING HIS DAUGHTER HIS AGENT, COPY REQUESTED PCP: ANTOINE VALENZUELA IMM DELIVERED DCP: HOME WITH VNA VIA FAMILY TRANSPORT
--- NOTE | 2023-01-18 09:30 | W.PM.OPN ---
Operative Note Operative Note Date of Service: 01/17/23 Narrative: Date of Service: 01/17/23 Pre-op diagnosis: Left knee OA Post-op diagnosis: same Procedure: Left TKA Implants: [place] Triathlon press fir posterior stabilized 07/26/12a Surgeon: Nabeel Varela MD Anesthesia: regional and spinal Was an Automobile Relocation Engineer used for this Procedure?: Yes Automobile Relocation Engineer: Nilesh Johnston Estimated blood loss (mL): 25 Tourniquet time (min): 60 IV fluids (mL): 800 Pathology: other Condition: stable Disposition: PACU Procedure in detail: The patient was brought to the operating room and prepped and draped in standard sterile fashion. A time-out was called to identify proper site proper procedure proper surgeon and IV antibiotics were administered. 1 g of IV tranexamic acid was administered. I began by making a midline incision to the retinaculum and performed a medial parapatellar arthrotomy. The patella was translated laterally and the knee was flexed up. There was medial and anterior compartment eburnation. I performed a small medial peel and resected the infrapatellar fat pad. [employer]'s line was then used to drill my intramedullary femoral guide and my distal femur cut of 10 mm was made in 5 degrees of valgus while protecting the soft tissues. I then measured a # 4 femur and placed my cutting guide and made my anterior posterior and chamfer cuts protecting the soft tissues at all times. I then made my box but removing the PCL. Once I was satisfied with my cuts I turned my attention to the tibia. I removed the meniscus medially and laterally and , using an external cutting guide, in line with the tibial crest and the third ray, I made my distal tibial cut in 0 deg slope of while protecting the posterior soft tissues at all times. An extension block was used to confirm appropriate amount of bony resection. I then sized a #4 tibia and once I was satisfied that there was complete tibial coverage I placed my trial and with the trial femur in place took the knee through range of motion. I was satisfied with the extension and flexion as well as the stability at 0, 30 and 90 degrees. I then turned my attention to the patella where I removed 1 cm from the undersurface of the patella and then trialed a 35a patellar button. Again the knee was taken through range of motion I was satisfied with the tracking. I then returned to the femur and drilled my femoral lug holes and prepared the tibia. A femoral bone plug was placed and the knee was irrigated copiously. I then press fit the patella, tibia and femur in standard fashion. I trialed different inserts until I selected a #13 insert. The final insert was placed and local TXA was administered. The knee was then closed with a running Quill suture, a 3 0 Vicryl and cuca on the skin. Patient was then placed in sterile dressing and brought to recovery room in stable condition there were no known complications.
[2023-01-18] MEDS: HYDROmorphone HCl 0.5 MG/0.5 ML SYRINGE 0.25 MG IVPUSH ×2 (10:49→19:43)
[2023-01-18] MEDS: Aspirin 325 MG TABLET PO ×2 (11:53→20:24)
--- NOTE | 2023-01-18 12:38 | HO.POSTANES ---
Post Anesthesia Evaluation Post Anesthesia Evaluation Date of Service: 01/18/23 Vital Signs: Vital Signs Temp Pulse Resp BP Pulse Ox O2 Del Method 01/18/23 11:46 97.8 F 78 17 135/65 97 Room Air 01/18/23 07:47 98.0 F 66 16 127/66 97 Room Air 01/18/23 03:30 96.7 F L 72 16 113/69 97 Room Air Anesthesia: Spinal and Nerve Block Mental Status: Awake Pain Control: Satisfactory Nausea/Vomiting: None Hydration: Adequate Anesthesia-Related Issues: No Anes. Related Issues
[2023-01-18] MEDS: 0.9 % Sodium Chloride Flush 3 ML SYRINGE IVFLUSH ×2 (16:42→19:44)
[2023-01-18] MEDS: Melatonin 3 MG TABLET 12 MG PO (20:25)
[2023-01-19] VITALS (9 sets, daily range): BP systolic 122–140; BP diastolic 61–69; PULSE 66–80; RESP 16–18; TEMP 36.6–39.1; O2SAT 95–100
[2023-01-19] MEDS: Acetaminophen 325 MG TABLET 650 MG PO ×3 (03:44→19:22)
[2023-01-19] MEDS: oxyCODONE HCl Immed Release 5 MG TABLET PO ×3 (03:44→15:39)
[2023-01-19] MEDS: HYDROmorphone HCl 0.5 MG/0.5 ML SYRINGE 0.25 MG IVPUSH ×3 (06:24→19:21)
[2023-01-19] MEDS: diphenhydrAMINE HCL 25 MG CAPSULE PO ×2 (06:24→16:07)
[2023-01-19 06:34] LABS: Basophils Percent Auto 0.2 % (0-2); Eosinophils Absolute Auto 0.1 X10*3/uL (0.0-0.4); Eosinophils Percent Auto 1.1 % (0-4); Hematocrit 31.1 % (42.0-52.0); Hemoglobin 10.9 g/dl (14.0-18.0); Imm Gran Abs Auto 0.03 X10*3/uL (0.00-0.03); Imm Gran Pct Auto 0.3 % (0.0-0.4); Lymphocytes Absolute Auto 1.7 X10*3/uL (1.2-4.9); Lymphocytes Percent Auto 17.5 % (20-40); MANUAL DIFF FLAG NO; Mean Corpuscular Hemoglobin 29.9 pg (27.0-33.0); Mean Corpuscular Volume 85.4 fL (80.0-98.0); Mean Platelet Volume 8.8 fL (9.4-12.4); Monocytes Absolute Auto 0.7 X10*3/uL (0.1-1.2); Monocytes Percent Auto 7.7 % (2-11); Neutrophils Percent Auto 73.2 % (45-73); Platelet Count 223 X10*3/uL (160-400); Red Blood Count 3.64 X10*6/uL (4.60-5.80); Red Cell Distribution Width 12.2 % (11.0-16.0); White Blood Count 9.6 X10*3/uL (4.8-10.8)
[2023-01-19 07:06] LABS: Anion Gap 11 (12-20); Blood Urea Nitrogen 7 mg/dL (9-16); Calcium 8.7 mg/dL (8.4-10.2); Carbon Dioxide 25 mmol/L (22-29); Chloride 105 mmol/L (96-108); Creatinine Clr Calc Pharmacy 96.4; Estimated Glomerular Filt Rate > 60; Glucose Fasting 158 mg/dL (60-99); Potassium 3.2 mmol/L (3.3-5.1); Sodium 138 mmol/L (135-145)
[2023-01-19] MEDS: oxyCODONE HCl ER 10 MG TAB.ER.12H PO ×2 (08:41→20:30)
[2023-01-19] MEDS: Docusate Sodium 100 MG CAPSULE PO ×2 (08:41→20:30)
[2023-01-19] MEDS: Celecoxib 200 MG CAPSULE PO ×2 (08:42→21:36)
[2023-01-19] MEDS: Aspirin 325 MG TABLET PO ×2 (08:42→20:30)
[2023-01-19] MEDS: 0.9 % Sodium Chloride Flush 3 ML SYRINGE IVFLUSH ×3 (08:43→21:48)
--- NOTE | 2023-01-19 09:01 | PM.PNORT ---
Subjective Subjective Date of Service: 01/19/23 Interval history: POD2 s/p LTKA Patient is resting in bed comfortably No overnight events Pain is managed No additional complaints Physical Exam Vital Signs: Vital Signs: Last Vital Signs Temp 99.9 F 01/19/23 07:46 Pulse 70 01/19/23 07:46 Resp 16 01/19/23 07:46 BP 123/63 01/19/23 07:46 Pulse Ox 98 01/19/23 07:46 O2 Del Method Room Air 01/19/23 07:46 BMI result Body Mass Index 29.5 Const: General: cooperative, healthy appearing and no acute distress Orientation/consciousness: patient oriented x3 HEENT: Head: Yes normal to inspection, Yes normocephalic and Yes atraumatic Eyes: General: appearance normal, both eyes and all related structures Neck: Neck: Yes normal visual inspection and Yes no lymphadenopathy Resp: Effort & Inspection: normal respiratory effort and able to speak in complete sentences Cardio: Rate: regular rate Peripheral pulses: Peripheral pulses 2+ throughout GI: Inspection: Yes normal to inspection Palpation (GI): Soft to palpation Skin: General skin exam: no rashes or lesions noted Lesions: no lesions Rashes: no rashes Neuro: General: patient oriented x3 Extrem: Other: Left knee dressing is c/d/i. Able to dorsi/plantar flex. Calf is supple and nontender. Sensation intact. Pedal pulse intact. n Psych: Appearance: grossly normal Mental Status: mental status grossly normal Affect: normal affect Attitude: cooperative Procedures Date of Service Date of Service: 01/19/23 Progress Note: A&P Assessment and plan (1) Status post total knee replacement, left: Status: Acute Plan Continue pain mgmnt ASA dvt ppx PT for LTKA Dispo planning-Pending PT eval, pain mgmnt Time Spent With Patient Time: Total time managing care of this patient today ____ minutes. Quality Stroke Does the patient have a stroke diagnosis?: No VTE Prior VTE?: No VTE Risk Level:: Medical - moderate - high VTE Device Contraindication: N/A - Device Ordered VTE Drug Contraindication: N/A - Med Ordered
--- NOTE | 2023-01-19 10:28 | MHC.CM.PN ---
Addendum entered by Dinorah Cruz 01/19/23 14:30: PT HAS ACCEPTED THE BED OFFER AT [facility]. THEY HAVE SUBMITTED FOR AUTH FOR PTS EXPECTED DC TOMORROW Original Note: CM INFORMED PT WILL LIKELY NEED STR PT STATES HE WOULD LIKE A FACILITY NEAR HIS HOME IN [place] REFERRALS [facility] AT [place] AND [facility] ARE CURRENTLY OFFERING BEDS RESPONSES [facility] [place],
[2023-01-19] MEDS: Melatonin 3 MG TABLET 12 MG PO (20:30)
--- NOTE | 2023-01-19 21:44 | PC.NURSE ---
pt had fever 101.9 given Tylenol 650 mg, and ice pack. rechecked 102.4. notified received stat order blood culture, image, and UA. at this time rechecked temp. 100.9. will CONT to monitor s/s.
[2023-01-19 21:55] LABS: Lactic Acid 0.8 mmol/L (0.5-2.0)
[2023-01-19 22:07] LABS: Appearance Urine Clear; Color Urine Yellow; Glucose Urine UA Negative (Negative); Leukocyte Esterase Urine Negative (Negative); Nitrite Urine Negative (Negative); PH 6.5 (5.0-9.0); UMIC TRIGGER UACC YES; Urine Blood Negative (Negative); Urine Ketones Negative (Negative); Urine Protein 100 (2+) mg/dL (Neg-Trace)
[2023-01-19 22:58] LABS: Bacteria Urine None Seen (None Seen); Hyaline Casts Urine 0-2 /LPF (0-2); RBC Urine 0-2 /HPF (0-2); Squamous Epithelial Cell Urine 0-2 /HPF (0-2); WBC Urine 0-5 /HPF (0-5)
[2023-01-20] MEDS: oxyCODONE HCl Immed Release 5 MG TABLET PO ×4 (02:33→16:56)
[2023-01-20 03:00] VITALS: BP 136/67; PULSE 70; RESP 17; TEMP 37.2; O2SAT 94
[2023-01-20] MEDS: Acetaminophen 325 MG TABLET 650 MG PO ×2 (03:57→16:18)
[2023-01-20 05:04] LABS: MANUAL DIFF FLAG NO
[2023-01-20 05:10] LABS: Basophils Percent Auto 0.4 % (0-2); Eosinophils Absolute Auto 0.1 X10*3/uL (0.0-0.4); Eosinophils Percent Auto 1.7 % (0-4); Hemoglobin 10.4 g/dl (14.0-18.0); Imm Gran Abs Auto 0.03 X10*3/uL (0.00-0.03); Imm Gran Pct Auto 0.4 % (0.0-0.4); Lymphocytes Absolute Auto 1.6 X10*3/uL (1.2-4.9); Lymphocytes Percent Auto 18.7 % (20-40); Mean Corpuscular HGB Conc 34.7 g/dl (31.0-36.0); Mean Corpuscular Volume 86.5 fL (80.0-98.0); Mean Platelet Volume 9.2 fL (9.4-12.4); Monocytes Absolute Auto 0.6 X10*3/uL (0.1-1.2); Monocytes Percent Auto 6.9 % (2-11); Neutrophils Absolute Auto 6.1 x10*3/uL (2.0-8.3); Neutrophils Percent Auto 71.9 % (45-73); Platelet Count 232 X10*3/uL (160-400); Red Blood Count 3.47 X10*6/uL (4.60-5.80); Red Cell Distribution Width 12.4 % (11.0-16.0); White Blood Count 8.5 X10*3/uL (4.8-10.8)
[2023-01-20 05:18] LABS: Lactic Acid 1.3 mmol/L (0.5-2.0)
[2023-01-20 05:23] LABS: Anion Gap 15 (12-20); Blood Urea Nitrogen 8 mg/dL (9-16); Calcium 8.6 mg/dL (8.4-10.2); Carbon Dioxide 23 mmol/L (22-29); Chloride 103 mmol/L (96-108); Creatinine Clr Calc Pharmacy 90.2; Estimated Glomerular Filt Rate > 60; Glucose Fasting 194 mg/dL (60-99); Potassium 3.3 mmol/L (3.3-5.1); Sodium 138 mmol/L (135-145)
--- NOTE | 2023-01-20 06:38 | PC.NURSE ---
pt accidentally pulled out the IV. this nurse tried twice and charge nurse tried once. pt said come back later, will pass along to morning team.
[2023-01-20] MEDS: Aspirin 325 MG TABLET PO (06:59)
[2023-01-20 07:00] VITALS: BP 131/69; PULSE 68; RESP 14; TEMP 36.4; O2SAT 98
[2023-01-20] MEDS: oxyCODONE HCl ER 10 MG TAB.ER.12H PO (07:00)
[2023-01-20] MEDS: Docusate Sodium 100 MG CAPSULE PO (07:00)
[2023-01-20] MEDS: Celecoxib 200 MG CAPSULE PO (07:00)
--- NOTE | 2023-01-20 09:41 | PM.DS ---
DS: Providers Provider Date of Service: 01/20/23 Date of admission: 01/17/23 07:57 Primary care physician: Dylan Shabazz MD Consults: 01/17/23 14:57 Consult to Hospitalist Routine Comment: Consulting Provider: Hospitalist Reason For Exam: HTN DS: Diagnosis Discharge Diagnosis (1) Status post total knee replacement, left: Status: Acute DS: Summary Hospital Course Hospital Course: The patient underwent a successful left total knee arthroplasty, they were transferred to PACU and then to the floor to recover. During their stay, their vitals were stable, afebrile at 97.6. Labs were unremarkable, H/H 10.4/30.0. POD 1 they were started on Aspirin 325mg po bid for DVT ppx, they also received Physical Therapy services twice a day. Prior to discharge, their dressing was changed, incision clean dry and intact, new Aquacel dressing applied and the plan was to be discharged home with VNA services. Time Spent with Patient Time attestation: Total time managing care of this patient today ____ minutes. Discharge coordination time: Less than 30 minutes Quality: Safe Use of Opioids Does Pt have an Active Cancer Diagnosis on the Problem List?: No Quality: Stroke Does the patient have a stroke diagnosis?: No Physical Exam Vital Signs: Vital Signs: Last Vital Signs Temp 97.6 F 01/20/23 07:00 Pulse 68 01/20/23 07:00 Resp 14 01/20/23 07:00 BP 131/69 01/20/23 07:00 Pulse Ox 98 01/20/23 07:00 O2 Del Method Room Air 01/20/23 07:00 BMI result Body Mass Index 29.5 Const: General: cooperative, healthy appearing and no acute distress Orientation/consciousness: patient oriented x3 HEENT: Head: Yes normal to inspection, Yes normocephalic and Yes atraumatic Eyes: General: appearance normal, both eyes and all related structures Neck: Neck: Yes normal visual inspection and Yes no lymphadenopathy Resp: Effort & Inspection: normal respiratory effort and able to speak in complete sentences Cardio: Rate: regular rate Peripheral pulses: Peripheral pulses 2+ throughout GI: Inspection: Yes normal to inspection Palpation (GI): Soft to palpation Skin: General skin exam: no rashes or lesions noted Lesions: no lesions Rashes: no rashes Neuro: General: patient oriented x3 Extrem: Other: Left knee dressing is c/d/i. Able to dorsi/plantar flex. Calf is supple and nontender. Sensation intact. Pedal pulse intact. Psych: Appearance: grossly normal Mental Status: mental status grossly normal Affect: normal affect Attitude: cooperative DS: Data Data Completed and Pending Completed studies during hospitalization [Text1]: Pending at discharge 01/17/23 12:55 Surgical [PTH] Routine Labs on day of discharge: Laboratory Results - last 24 hr 01/19/23 01/19/23 01/20/23 21:30 21:50 04:54 WBC 8.5 RBC 3.47 L Hgb 10.4 L Hct 30.0 L MCV 86.5 MCH 30.0 MCHC 34.7 RDW 12.4 Plt Count 232 MPV 9.2 L Immature Gran % (Auto) 0.4 Neut % (Auto) 71.9 Lymph % (Auto) 18.7 L [place] % (Auto) 6.9 Eos % (Auto) 1.7 Baso % (Auto) 0.4 Lymph # (Auto) 1.6 [place] # (Auto) 0.6 Eos # (Auto) 0.1 Baso # (Auto) 0.0 Abs Immat Gran (auto) 0.03 Absolute Neuts (auto) 6.1 Absolute Nucleated RBC 0.000 Nucleated RBC % (auto) 0.0 Hold Purple Top SEE NOTE Sodium 138 Potassium 3.3 Chloride 103 Carbon Dioxide 23 Anion Gap 15 BUN 8 L Creatinine 0.77 Estim Creat Clear Calc 90.2 Estimated GFR > 60 Fasting Glucose 194 H Lactic Acid 0.8 1.3 Calcium 8.6 Urine Color Yellow Urine Appearance Clear Urine pH 6.5 Ur Specific [place] 1.020 Urine Protein 100 (2+) H Urine Glucose (UA) Negative Urine Ketones Negative Urine Blood Negative Urine Nitrite Negative Ur Leukocyte Esterase Negative Urine RBC 0-2 Urine WBC 0-5 Ur Squamous Epith Cells 0-2 Urine Bacteria None Seen Hyaline Casts 0-2 Discharge Plan Discharge Anticipated Discharge Date/Time: 01/19/23 10:00 Patient Disposition: Xfer SNF Discharge Diagnosis: LT TKA Referrals: Nilesh Johnston PA-C [Physician Ice Scraper] - 2 Weeks (02/02/23 1:30 [facility] Nilesh Johnston PA-C) Discharge Medications: New acetaminophen 325 mg Tablet 650 mg PO Q6H PRN (Reason: Pain, Mild (Pain Scale 1-3)) 30 Days Qty: 240 0RF aspirin 325 mg Tablet 325 mg PO BID 42 Days Qty: 84 0RF celecoxib 200 mg Capsule 200 mg PO BID 30 Days Qty: 60 0RF docusate sodium 100 mg Capsule 100 mg PO BID 14 Days Qty: 28 0RF oxycodone 5 mg Tablet 5 mg PO Q4H PRN (Reason: Pain, Moderate(Pain Scale 4-6)) 7 Days Qty: 42 0RF Rx Instructions: Partial Fill upon patient request. Continued (DME) [place]er [facility] See Rx Instructions .MEDSUPPLY Qty: 1 0RF Rx Instructions: Folding Front wheeled walker (DME) Raised toilet seat See Rx Instructions .ROUTE .MEDSUPPLY Qty: 1 0RF Rx Instructions: As directed bisacodyl [Dulcolax (bisacodyl)] 5 mg tablet,delayed release (DR/EC) 20 mg PO ONCE 1 Days Qty: 4 0RF Rx Instructions: take 2 at noon the day before colonoscopy polyethylene glycol 3350 [Miralax] 17 gram/dose powder 238 g PO ONCE 1 Days Qty: 238 0RF Rx Instructions: Take as directed by mouth the day before your procedure. cetirizine 10 mg Tablet 10 mg PO DAILY PRN (Reason: seasonal allergies) melatonin 10 mg Tablet 10 mg PO BEDTIME PRN (Reason: Insomnia) amlodipine 10 mg tablet 20 mg PO QAM losartan 100 mg tablet 100 mg PO QAM simvastatin 20 mg tablet 20 mg PO BEDTIME Qty: 90 1RF Discontinued acetaminophen [Tylenol Arthritis Pain] 650 mg tablet extended release 650 mg PO Q8H Discharge Orders: Discharge Order (Routine); Ordered 01/20/23 Ordered By: Barbara Lord Diet: Regular diet Activity on Discharge: Use cane or walker Stand Alone Forms: Patient Portal Discharge page Care Plan Goals: Restore function of joint Health Concerns: non Plan of Treatment: Physical Therapy for Total knee arthroplasty: WBAT, gait training, ROM 0-12, quad strength Limit stair climbing No showering, no tub bath-keep dressing clean, dry and intact No driving x6 weeks Continue Aspirin twice a day x 6 weeks Follow up with [facility] in 2 weeks: 02/02/23 1:30 [facility] Orthopedic SurgeonsMeuse,Ta-Kelly, PA-C --you will also have your first out patient PT eval on the day of your post op appt-so please plan on being in the office that day for an extended period of time. Assessment: Physical Therapy Pain management DVT prophylaxis
--- NOTE | 2023-01-20 10:56 | MHC.CM.PN ---
PT ACCEPTED A STR BED OFFER FROM [facility] IN [place] THEY HAVE OBTAINED AUTH AND REQUESTED PT TRANSPORT EARLY IN THE DAY [facility] UNABLE TO PROVIDE TRANSPORT BEFORE 1530 HOURS SNF AND PT INFORMED HE WILL DC AT THAT TIME
[2023-01-20 11:00] VITALS: O2SAT 97
[2023-01-20 12:31] VITALS: BP 131/69; PULSE 68; O2SAT 98
[2023-01-20 15:00] VITALS: BP 142/74; PULSE 81; RESP 16; TEMP 36.4; O2SAT 96
--- NOTE | 2023-01-20 15:33 | PC.NURSE ---
[facility]
== END 2023-01-20 18:28 | disposition skilled nursing facility (03) | DRG 470 ==
LOC: HO.SSSA 08:01 → HO.S3 13:49
PROVIDERS: Internal Medicine; Orthopaedic Surgery; Admitting Provider Physician Assistant; PCP Internal Medicine; Visit Provider Physician Assistant
PROC: 0SRD0JA Replacement of Left Knee Joint with Synthetic Substitute, Uncemented, Open Approach (ICD-10-PCS; CPT 27447; principal; 2023-01-17 10:10)
DX: M17.12 Unilateral primary osteoarthritis, left knee (principal); E78.00 Pure hypercholesterolemia, unspecified; G89.18 Other acute postprocedural pain; I10 Essential (primary) hypertension; Z79.82 Long term (current) use of aspirin; Z79.899 Other long term (current) drug therapy
CPT/HCPCS: 36415; 71045; 73560; 80048; 80051; 81001; 82565; 83605; 84520; 85025; 86850; 86900; 86901; 87040; 87640; 87641; 88305; 88311; 93005; 97110; 97116; 97161; C1776; J0690; J1170

== ENCOUNTER → 2023-01-17 07:57 | Outpatient (BNV) | payer OTHER, SELFPAY | PROVIDERS: Admitting Provider Physician Assistant; PCP Internal Medicine; Visit Provider Physician Assistant | DX: M17.12 Unilateral primary osteoarthritis, left knee (principal) | CPT/HCPCS: 99221 ==

== ENCOUNTER → 2023-01-17 07:57 | Outpatient (BNV) | payer OTHER, SELFPAY | PROVIDERS: Admitting Provider Physician Assistant; PCP Internal Medicine; Visit Provider Orthopaedic Surgery | DX: M17.12 Unilateral primary osteoarthritis, left knee (principal) | CPT/HCPCS: 27447; 99024 ==

== ENCOUNTER 2023-01-27 09:36 | Outpatient (AMB) | payer OTHER, SELFPAY ==
--- NOTE | 2023-01-27 09:39 | MHC.OFFVIS ---
Intake Intake Visit Reasons: PO - Left TKA 01/17/23 - Concerns of swelling Intake Note: Tobi is a 72 year old female who presents today for a post op appointment s/p Left TKA 01/17/23 NE. Patient reports having swelling and its getting him a little worried. Allergies No Known Allergies Allergy (Verified 01/27/23 09:44) HPI PO - Left TKA 01/17/23 - Concerns of swelling HPI Details 72-year-old male who presents in the office today 10 days status post left total knee arthroplasty, which was performed on 01/17/[address] Varela. The patient presents today due to a concern for edema. [facility] Medical History Osteoarthritis of left knee Hypercholesterolemia Hypertension Surgical History Hx of appendectomy History of colonoscopy Family History Mother No problems noted. Father No problems noted. Social History Household Members: Spouse Housing: House Are you a primary home care chaplain to a significant other at home: No Do you presently have visiting nurse or other home services: No Alcohol intake: current Alcohol intake frequency: holidays/special occasions only Alcohol type: beer and wine Patient Tobacco Use Status: Former Tobacco user Quit Date: as teenager Tobacco use type: Cigarette e-Cigarette/Vaping Use: Never Used Second Hand Smoke Exposure: No service: No Current occupational status: retired Cognitive needs: No Hearing needs: No Vision needs: Yes (glasses) Review of Systems Const All systems reviewed & are unremarkable except as noted in HPI and below Physical Exam Const General: cooperative, healthy appearing and no acute distress Resp Effort & Inspection: normal respiratory effort and able to speak in complete sentences Cardio Rate: regular rate Peripheral pulses: Peripheral pulses 2+ throughout GI Palpation (GI): Soft to palpation Skin Lesions: no lesions Rashes: no rashes Extrem Other: Left knee: Poor quad engagement. Poor quad function. ROM is 30*80 degrees. [place] intact. No surrounding erythema or drainage. No signs of infection. Moderate effusion. Assessment & Plan Assessment & Plan (1) Status post total knee replacement, left: Comment: 01/17/2023 Dr. Varela Code(s): Z96.652 - Presence of left artificial knee joint Plan Mr. Epps is a 72-year-old male who presents in the office today 10 days status post left total knee arthroplasty, which was performed on 01/17/[address] Varela. The patient presents today due to a concern for edema. [place] were removed and steri-stripes were applied. The patient will continue to work with physical therapy. He did have an ultrasound performed for a concern for DVTs due to lower extremity edema. However, this was negative. His follow up will be in 4 weeks, or sooner if needed. Patient Instructions: Scribed for Barbara Lord PA-C by Emerita James medical anthropologist, on 01/27/2023 at 9:47 am, EST. Coding Level of Care Code Global (31232) Diagnoses Status post total knee replacement, left Z96.652
== END 2023-01-27 10:15 | disposition home or self-care (01) ==
PROVIDERS: PCP Internal Medicine; Visit Provider Physician Assistant
DX: Z96.652 Presence of left artificial knee joint (principal)
CPT/HCPCS: 99024

== ENCOUNTER → 2023-01-27 09:36 | Outpatient (BNVA) | payer OTHER, SELFPAY | PROVIDERS: PCP Internal Medicine; Visit Provider Physician Assistant ==

== ENCOUNTER 2023-02-02 13:41 | Outpatient (AMB) | payer OTHER, SELFPAY ==
--- NOTE | 2023-02-02 13:51 | MHC.OFFVIS ---
Intake Intake Visit Reasons: PO-LT TKA 01/17/23 NE Intake Note: Tobi a 72 year old male presents today for a post operative left TKA, DOS 01/17/23 NE. Patient reports he is doing well, states intermittent swelling. Patient reports he is doing well with P.T. Allergies No Known Allergies Allergy (Verified 02/02/23 13:52) HPI PO-LT TKA 01/17/23 NE HPI Details 72-year-old male who returns to the office today for post-op left TKA, 01/17/[address] Varela. He continues to have intermittent swelling in his knee but is doing well otherwise. He is working on physical therapy with benefits. He has no concerns today. [facility] Medical History Osteoarthritis of left knee Hypercholesterolemia Hypertension Surgical History Hx of appendectomy History of colonoscopy Family History Mother No problems noted. Father No problems noted. Social History (Reviewed 02/02/23 @ 13:53 by Susi Valiente [facility]) Household Members: Spouse Housing: House Are you a primary health care facilities inspector to a significant other at home: No Do you presently have visiting nurse or other home services: No Alcohol intake: current Alcohol intake frequency: holidays/special occasions only Alcohol type: beer and wine Patient Tobacco Use Status: Former Tobacco user Quit Date: as teenager Tobacco use type: Cigarette e-Cigarette/Vaping Use: Never Used Second Hand Smoke Exposure: No service: No Current occupational status: retired Cognitive needs: No Hearing needs: No Vision needs: Yes (glasses) Review of Systems Const All systems reviewed & are unremarkable except as noted in HPI and below Physical Exam Extrem Other: Left knee: Incision clean, dry and intact. No erythema ROM is 5-90 degrees. He is able to initiate SLR. Calf supple, nontender. NVI. Assessment & Plan Assessment & Plan (1) Status post total knee replacement, left: Comment: 01/17/2023 Dr. Varela Code(s): Z96.652 - Presence of left artificial knee joint Plan He will begin continue with therapy while in Rehab, once his id d/c from rehab he will begin to transition to Outpatient PT to continue working on Gait training, ROM and quad strength. No driving for another 4 weeks. He will require ppx abx for dental procedures. He will f/u in 4 weeks, sooner if needed. Patient Instructions: Scribed for Nilesh Johnston PA-C, by Roberto Medel medical genetics director, on 02/02/2023 at 1:30 PM EST. I, Nilesh Johnston PA-C, have personally reviewed and agree with the information entered by the scribe. Coding Level of Care Code Global (11524) Diagnoses Status post total knee replacement, left Z96.652
== END 2023-02-02 14:14 | disposition home or self-care (01) ==
PROVIDERS: Visit Provider Physician Assistant
DX: Z96.652 Presence of left artificial knee joint (principal)
CPT/HCPCS: 99024

== ENCOUNTER → 2023-02-02 13:41 | Outpatient (BNVA) | payer OTHER, SELFPAY | PROVIDERS: Visit Provider Physician Assistant ==

== ENCOUNTER 2023-02-09 09:22 | Outpatient (AMB) | payer OTHER, SELFPAY ==
--- NOTE | 2023-02-09 09:25 | MHC.PC.OV ---
Vital Signs 02/09/23 09:27 Height 5 ft 6 in Weight 167 lb 4 oz BMI 27.0 BP 100/70 Blood Pressure Location Lt brachial Position Sitting Pulse 70 Pulse Source Pulse Oximeter Pulse Oximetry (%) 95 Oxygen Delivery Method Room Air Intake Visit Reasons: 6 month f/u Intake Note: Patient is here to follow up on HTN. Post-op of Left knee Audio Specialist Required: No Marketing Campaign Analyst: Not Required per policy Accompanied by: Self / Same As Patient Allergies No Known Allergies Allergy (Verified 02/09/23 09:56) Medication List - Last Reconciled 02/09/23 by Dylan Shabazz MD amlodipine 20 mg PO QAM aspirin 325 mg PO BID 42 days celecoxib 200 mg PO BID 30 days cetirizine 10 mg PO DAILY PRN losartan 100 mg PO QAM oxycodone 5 mg PO Q4H PRN 7 days [Raised toilet seat As directed] simvastatin 20 mg PO BEDTIME walker Folding Front wheeled walker Tobacco use date assessed: 02/09/23 Fall risk assessment: No Falls in past year Last assessed Fall Risk: 02/09/23 HPI 6 month f/u HPI Details 72-year-old male presents to the office to discuss his chronic medical conditions. Subsequent to his last office visit, patient underwent a left knee replacement. The procedure went well and he completed his rehab therapy. Continues to have pain in the left knee and is taking opiates for it. The opiates are being prescribed by the orthopedic surgeon. He is able to ambulate with a walker. When he was discharged from the rehab, he was still given Lovenox injections for DVT prevention. Routine blood work shows elevated blood sugars and an A1c has been requested. [facility] Medical History Osteoarthritis of left knee Hypercholesterolemia Hypertension Surgical History History of left knee surgery Hx of appendectomy History of colonoscopy Family History Mother No problems noted. Father No problems noted. Social History Household Members: Spouse Housing: House Are you a primary long term care phlebotomist to a significant other at home: No Do you presently have visiting nurse or other home services: No Alcohol intake: current Alcohol intake frequency: holidays/special occasions only Alcohol type: beer and wine Patient Tobacco Use Status: Former Tobacco user Quit Date: as teenager Tobacco use type: Cigarette e-Cigarette/Vaping Use: Never Used Second Hand Smoke Exposure: No service: No Current occupational status: retired Cognitive needs: No Hearing needs: No Vision needs: Yes (glasses) Questionnaire Thrive Questionnaire Date Thrive assessed: 01/18/23 LEVAR-7 AMB Questionnaire LEVAR-7 Date LEVAR - 7 assessed: 08/18/22 Source: Developed by Drs. Kevin Linder, Natividad Johnson, Filemon Flanagan and colleagues, with an educational jaret from [employer]. Physical exam (Primary Care) Vital Signs: Last Vital Signs Pulse 70 02/09/23 09:27 BP 100/70 02/09/23 09:27 Pulse Ox 95 02/09/23 09:27 Oxygen Delivery Method Room Air 02/09/23 09:27 Care Plan Goal for BP management: Blood pressure is under control. Continue current medications. BMI result Body Mass Index 27.0 Tobacco/Smoking Status: Tobacco use Status Tobacco use date assessed 02/09/23 02/09/23 09:36 Patient Tobacco Use Status Former Tobacco user 02/09/23 09:36 Tobacco use type Cigarette 02/09/23 09:36 e-Cigarette/Vaping Use Never Used 02/09/23 09:36 Thrive Assessment: Date of Thrive Assessment Date Thrive assessed 01/18/23 02/09/23 09:36 Const General: cooperative and healthy appearing Nutritional Appearance: well nourished Orientation/consciousness: patient oriented x3 Limitations: no limitations HENMT Head: Yes normal to inspection Eyes General: appearance normal, both eyes and all related structures Neck Neck: Yes normal visual inspection Chest Chest palpation & inspection: normal palpation of entire chest wall Resp Effort & Inspection: normal respiratory effort Neuro General: patient oriented x3 Extrem Other: Left knee: Surgical scar present. Able to bear weight with full range of motion. Results AMB Hemoglobin A1c AMB Hemoglobin A1c 7.6 % Last Edit by CARLA Buckley on 02/09/23 10:38 Results Reviewed Results Reviewed: Laboratory Last Values Hgb A1c (Clinic) 7.6 % (4.0-6.0) H 02/09/23 10:28 Assessment and Plan Assessment & Plan (1) Status post total knee replacement, left: Comment: 01/17/2023 Dr. Varela Code(s): Z96.652 - Presence of left artificial knee joint Plan: Continue physical therapy. Patient should be weaned away from opiates and I encouraged him to have this discussion with the orthopedic surgeon when he meets him on March 02. Enoxaparin can be stop. (2) Essential hypertension: Code(s): I10 - Essential (primary) hypertension Plan: Blood pressures are in range. Continue current medications. (3) Hyperglycemia: Code(s): R73.9 - Hyperglycemia, unspecified Plan: A1c is greater than 7. Patient is a diabetic. Metformin has been started. I asked him to come back next week after he starts the medication for further discussion on the disease. Orders: Orders AMB Hemoglobin A1c Today Z13.9 - Encounter for screening, unspecified Coding Level of Care Code Est Pt Level 4 (46354) Diagnoses Status post total knee replacement, left Z96.652 Essential hypertension I10 Hyperglycemia R73.9
[2023-02-09 09:27] VITALS: BP 100/70; PULSE 70; O2SAT 95; BMI 27.0
== END 2023-02-09 10:40 | disposition home or self-care (01) ==
PROVIDERS: Visit Provider Internal Medicine
DX: Z96.652 Presence of left artificial knee joint (principal); I10 Essential (primary) hypertension; R73.9 Hyperglycemia, unspecified; Z13.9 Encounter for screening, unspecified
CPT/HCPCS: 83036; 99214

== ENCOUNTER 2023-02-16 08:14 | Outpatient (AMB) | payer OTHER, SELFPAY ==
[2023-02-16 09:38] VITALS: BP 124/68; PULSE 75; O2SAT 98; BMI 26.4
--- NOTE | 2023-02-16 09:38 | MHC.PC.OV ---
Vital Signs 02/16/23 09:38 Height 5 ft 6 in Weight 163 lb 6 oz BMI 26.4 BP 124/68 Blood Pressure Location Lt brachial Position Sitting Pulse 75 Pulse Source Pulse Oximeter Pulse Oximetry (%) 98 Oxygen Delivery Method Room Air Intake Visit Reasons: 1 week f/u Intake Note: Patient is here to follow up on Post knee surgery and high blood sugar. Perforating Machine Operator Required: No Binder Coverstitch: Not Required per policy Accompanied by: Self / Same As Patient Allergies No Known Allergies Allergy (Verified 02/26/23 12:41) Medication List - Last Reconciled 02/26/23 by Dylan Shabazz MD amlodipine 20 mg PO QAM aspirin 325 mg PO BID 42 days blood sugar diagnostic ([employer]MIX (?)Touch Ultra Test strips) test once per day blood-glucose meter ([employer] Ultra2 Meter) test once per day celecoxib 200 mg PO BID 30 days cetirizine 10 mg PO DAILY PRN [Hand held shower head As directed] lancets (ONOFFMIX (?)Touch UltraSoft 2 Lancet) test once per day losartan 100 mg PO QAM metformin 500 mg PO DAILY oxycodone 5 mg PO Q6H PRN 7 days [Raised toilet seat As directed] [SHOWER CHAIR As directed] simvastatin 20 mg PO BEDTIME walker Folding Front wheeled walker Tobacco use date assessed: 02/09/23 HPI 1 week f/u HPI Details 72-year-old male presents to the office for a sick visit. I brought him back to explained that his blood sugars elevated, A1c is elevated and he has diabetes. Patient would like to get his A1c levels checked again before he believes he has the disease. [facility] Medical History Osteoarthritis of left knee Hypercholesterolemia Hypertension Surgical History History of left knee surgery Hx of appendectomy History of colonoscopy Family History Mother No problems noted. Father No problems noted. Social History Household Members: Spouse Housing: House Are you a primary healthcare facility administrator to a significant other at home: No Do you presently have visiting nurse or other home services: No Alcohol intake: current Alcohol intake frequency: holidays/special occasions only Alcohol type: beer and wine Patient Tobacco Use Status: Former Tobacco user Quit Date: as teenager Tobacco use type: Cigarette e-Cigarette/Vaping Use: Never Used Second Hand Smoke Exposure: No service: No Current occupational status: retired Cognitive needs: No Hearing needs: No Vision needs: Yes (glasses) Questionnaire Thrive Questionnaire Date Thrive assessed: 01/18/23 LEVAR-7 AMB Questionnaire LEVAR-7 Date LEVAR - 7 assessed: 08/18/22 Source: Developed by Drs. Kevin Linder, Natividad Johnson, Filemon Flanagan and colleagues, with an educational jaret from [employer]. Physical exam (Primary Care) Vital Signs: Last Vital Signs Pulse 75 02/16/23 09:38 BP 124/68 02/16/23 09:38 Pulse Ox 98 02/16/23 09:38 Oxygen Delivery Method Room Air 02/16/23 09:38 BMI result Body Mass Index 26.4 Tobacco/Smoking Status: Tobacco use Status Tobacco use date assessed 02/09/23 02/16/23 09:42 Patient Tobacco Use Status Former Tobacco user 02/16/23 09:42 Tobacco use type Cigarette 02/16/23 09:42 e-Cigarette/Vaping Use Never Used 02/16/23 09:42 Thrive Assessment: Date of Thrive Assessment Date Thrive assessed 01/18/23 02/16/23 09:42 Const General: cooperative and healthy appearing Nutritional Appearance: well nourished Orientation/consciousness: patient oriented x3 Limitations: no limitations HENMT Head: Yes normal to inspection Eyes General: appearance normal, both eyes and all related structures Neck Neck: Yes normal visual inspection Chest Chest palpation & inspection: normal palpation of entire chest wall Resp Effort & Inspection: normal respiratory effort Neuro General: patient oriented x3 Assessment and Plan Assessment & Plan (1) Hyperglycemia: Code(s): R73.9 - Hyperglycemia, unspecified Plan: Hemoglobin A1c has been ordered again Orders: Orders Hemoglobin A1c 02/16/23 R73.9 - Hyperglycemia, unspecified Coding Level of Care Code Est Pt Level 3 (60709) Diagnoses Hyperglycemia R73.9
== END 2023-02-16 13:15 | disposition home or self-care (01) ==
PROVIDERS: PCP Internal Medicine; Visit Provider Internal Medicine
DX: R73.9 Hyperglycemia, unspecified (principal)
CPT/HCPCS: 99213

== ENCOUNTER 2023-02-16 10:14 | Outpatient (REF) | payer OTHER, SELFPAY ==
[2023-02-16 11:03] LABS: Estimated Average Glucose 160 mg/dL; Hemoglobin A1c % 7.2 % (<6.0)
== END 2023-02-16 10:15 | disposition home or self-care (01) ==
LOC: HO.LAB 10:14
PROVIDERS: Visit Provider Internal Medicine
DX: R73.9 Hyperglycemia, unspecified (principal)
CPT/HCPCS: 36415; 83036

== ENCOUNTER 2023-03-02 12:42 | Outpatient (AMB) | payer OTHER, SELFPAY ==
--- NOTE | 2023-03-02 13:04 | A.OFFVIS_ITS ---
Intake Vital Signs 03/02/23 13:09 Height 5 ft 6 in Weight 163 lb BMI 26.3 Intake Visit Reasons: PO-LT TKA 01/17/23 NE Intake Note: Tobi is a 72 year old male who presents today for a 6 week post operative appt s/p left TKA, DOS 01/17/23 NE. Patient reports he is doing well, states intermittent swelling. i feel pain inside the knee Allergies No Known Allergies Allergy (Verified 03/02/23 13:05) HPI PO-LT TKA 01/17/23 NE HPI Details Tobi is a 72 year old man who presents ~6 weeks S/P left TKA. He says he is doing well, but he has intermittent swelling and pain inside the knee . He has been working with PT and feels this has been going well. [facility] Medical History Osteoarthritis of left knee Hypercholesterolemia Hypertension Surgical History History of left knee surgery Hx of appendectomy History of colonoscopy Family History Mother No problems noted. Father No problems noted. Social History Household Members: Spouse Housing: House Are you a primary pet care worker to a significant other at home: No Do you presently have visiting nurse or other home services: No Alcohol intake: current Alcohol intake frequency: holidays/special occasions only Alcohol type: beer and wine Patient Tobacco Use Status: Former Tobacco user Quit Date: as teenager Tobacco use type: Cigarette e-Cigarette/Vaping Use: Never Used Second Hand Smoke Exposure: No service: No Current occupational status: retired Cognitive needs: No Hearing needs: No Vision needs: Yes (glasses) Review of Systems Const All systems reviewed & are unremarkable except as noted in HPI and below Physical Exam Vital Signs: BMI result Body Mass Index 26.3 Const General: no acute distress, alert and awake Orientation/consciousness: patient oriented x3 HEENT Head: Yes normocephalic and Yes atraumatic Eyes EOM: EOMs intact bilaterally Resp Effort & Inspection: normal respiratory effort and able to speak in complete sentences Cardio Jugular venous distension: no JVD Skin General skin exam: turgor normal Rashes: no rashes Neuro General: patient oriented x3 Extrem Other: Left Knee: Incision C/D/I 0-125 deg motion Weak quad but no lag and can SLR Psych Appearance: grossly normal Affect: normal affect Attitude: cooperative Assessment & Plan Assessment & Plan (1) Status post total knee replacement, left: Comment: 01/17/2023 Dr. Varela Code(s): Z96.652 - Presence of left artificial knee joint Plan: This is a 72 year old man S/P left TKA, DOS: 01/17/23. He is doing well overall, within expectation, though he has some pain & effusion with activity. He has been working with outpatient PT. I recommend he continue with PT and activity as tolerated. He will follow up in 6 weeks. Coding Level of Care Code Global (10766) Diagnoses Status post total knee replacement, left Z96.652
[2023-03-02 13:09] VITALS: BMI 26.3
== END 2023-03-02 13:30 | disposition home or self-care (01) ==
PROVIDERS: PCP Internal Medicine; Visit Provider Orthopaedic Surgery
DX: Z96.652 Presence of left artificial knee joint (principal)
CPT/HCPCS: 99024

== ENCOUNTER → 2023-03-02 12:42 | Outpatient (BNVA) | payer OTHER, SELFPAY | PROVIDERS: PCP Internal Medicine; Visit Provider Orthopaedic Surgery ==

== ENCOUNTER 2023-03-28 10:23 | Outpatient (REF) | payer OTHER, SELFPAY ==
[2023-03-28 12:48] LABS: Hematocrit 36.8 % (42.0-52.0); Hemoglobin 12.4 g/dl (14.0-18.0); Mean Corpuscular HGB Conc 33.7 g/dl (31.0-36.0); Mean Corpuscular Hemoglobin 29.6 pg (27.0-33.0); Mean Corpuscular Volume 87.8 fL (80.0-98.0); Mean Platelet Volume 9.1 fL (9.4-12.4); Platelet Count 340 X10*3/uL (160-400); Red Blood Count 4.19 X10*6/uL (4.60-5.80); Red Cell Distribution Width 14.2 % (11.0-16.0); White Blood Count 6.5 X10*3/uL (4.8-10.8)
[2023-03-28 13:41] LABS: Iron 73 mcg/dL (45-160); Percent Iron Saturation 30 % (15-50); Total Iron Binding Capacity 245 mcg/dL (228-428); Unsaturated Iron Binding 172 ug/dL
[2023-03-28 14:38] LABS: Vitamin B12 522 pg/mL (200-900)
[2023-03-28 14:43] LABS: Ferritin 149 ng/mL (20-250); Vitamin D 25-OH Total 59.2 ng/mL (>30)
[2023-03-31 18:09] LABS: Immunoglobulin A 99 mg/dL (70-320)
[2023-04-04 18:35] LABS: Transglutaminase Ab IgG <1.0 U/mL; Transglutaminase IgA <1.0 U/mL
== END 2023-03-28 10:24 | disposition home or self-care (01) ==
LOC: HO.LAB 10:23
PROVIDERS: PCP Internal Medicine; Visit Provider Internal Medicine Gastroenterology
DX: D64.9 Anemia, unspecified (principal); Z86.010 Personal history of colon polyps; Z79.84 Long term (current) use of oral hypoglycemic drugs; Z79.891 Long term (current) use of opiate analgesic; Z79.899 Other long term (current) drug therapy
CPT/HCPCS: 36415; 82306; 82607; 82728; 82784; 83540; 85027; 86364; 99212

== ENCOUNTER 2023-03-28 10:23 | Outpatient (AMB) | payer OTHER, SELFPAY ==
--- NOTE | 2023-03-28 10:26 | MHC.OFFVIS ---
Intake Vital Signs 03/28/23 10:39 Height 5 ft 6 in Weight 165 lb BMI 26.6 BP 132/61 Blood Pressure Location Lt brachial Position Sitting Pulse 72 Intake Visit Reasons: Roderick request Intake Note: Patient follow up pre colonoscopy screening. Patient cc: constipation on and off , denies any other GI issues. Production Roustabout Required: No Accompanied by: Self / Same As Patient Allergies No Known Allergies Allergy (Verified 03/02/23 13:05) Medication List - Last Reconciled 03/28/23 by Destin Vaughn MD amlodipine 20 mg PO QAM ascorbate calcium (vitamin C) 500 mg PO DAILY aspirin 325 mg PO BID 42 days blood sugar diagnostic ([employer]Touch Ultra Test strips) test once per day blood-glucose meter ([employer]uch Ultra2 Meter) test once per day cholecalciferol (vitamin D3) 125 mcg PO DAILY [Hand held shower head As directed] lancets (Taylor Billing SolutionsTouch UltraSoft 2 Lancet) test once per day losartan 100 mg PO QAM melatonin 10 mg PO BEDTIME PRN metformin 500 mg PO BID multivitamin 1 tab PO DAILY oxycodone 5 mg PO Q8H PRN 7 days [Raised toilet seat As directed] [SHOWER CHAIR As directed] simvastatin 20 mg PO BEDTIME walker Folding Front wheeled walker KEYUR Vaughn request HPI Details GI clinic visit for this 72 Y AA male (from [place]) for fu of colon polyps. Review of labs showed anemia LABS IN [facility] : Reviewed ENDOSCOPIC STUDIES: 04/30/21 COLONOSCOPY SHOWED: Sigmoid Colon:? A 2-3 mm sessile polyp removed with a cold biopsy. A 2 to 2.5 cms pedunculated polyp at 30 cms removed with a hot snare.? Polypectomy site was marked by adrienne ink (submucosal injection). Rectum:? Normal Ano-rectum:? Moderate internal hemorrhoids Colon preparation:? Good? Impression and Post Procedure Diagnosis: Colonoscopy Findings: One medium sized and one small polyps removed Moderate hemorrhoids on retroflexed exam. Plan: Repeat Colonoscopy interval based on path results - in 2 years if polyps are adenomatous to check polypectomy site in the sigmoid colon and 10 years if polyps are hyperplastic. (Adult colonoscope for future colonoscopies). Biopsies showed: Colon, sigmoid at 30 cm, polyp: Tubular adenomas, three; negative for high-grade dysplasia and carcinoma TODAY'S VISIT: Had left knee replacement on 01/17/23. Patient denies symptoms of heartburn, dysphagia, nausea, vomiting, change in appetite or weight. Denies recent change in bowel habits, constipation, diarrhea, black stools or rectal bleeding. Pt has one BM daily Pt denies smoking and takes one bottle of beer occasionally Patient complains of intermittent snoring and denies major cardiac or pulmonary problems, sleep apnea Denies problems with anesthesia in the past. Denies being on chronic anticoagulation. Patient denies known family history of colon polyps, colon cancer or other GI malignancies. 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 He has 10 adult children (some are working in [facility] - his home country, after finishing University education) [facility] Medical History Osteoarthritis of left knee Hypercholesterolemia Hypertension Surgical History History of left knee surgery Hx of appendectomy History of colonoscopy Family History Mother No problems noted. Father No problems noted. Social History Household Members: Spouse Housing: House Are you a primary respiratory care faculty to a significant other at home: No Do you presently have visiting nurse or other home services: No Alcohol intake: current Alcohol intake frequency: holidays/special occasions only Alcohol type: beer and wine Comment: occasional use Patient Tobacco Use Status: Former Tobacco user Quit Date: as teenager Tobacco use type: Cigarette e-Cigarette/Vaping Use: Never Used Second Hand Smoke Exposure: No service: No Current occupational status: retired Cognitive needs: No Hearing needs: No Vision needs: Yes (glasses) Review of Systems Const All systems reviewed & are unremarkable except as noted in HPI and below Physical Exam Vital Signs: Last Vital Signs Pulse 72 03/28/23 10:39 BP 132/61 03/28/23 10:39 BMI result Body Mass Index 26.6 Const General: healthy appearing and no acute distress Nutritional Appearance: overweight Orientation/consciousness: patient oriented x3 Limitations: no limitations HEENT Head: Yes normal to inspection Ears: hearing grossly normal bilaterally Eyes Sclerae: sclerae normal Pupils: Equal, round and reactive pupils present Neck Neck: Yes normal visual inspection Chest Chest palpation & inspection: normal inspection of the chest Resp Effort & Inspection: normal respiratory effort Auscultation: clear to auscultation bilaterally Cardio Palpation: normal PMI Rate: regular rate Rhythm: regular rhythm Heart sounds: S1 normal heart sound present, S2 normal heart sound present and no murmurs GI Palpation (GI): Soft to palpation, nontender and No hepatosplenomegaly present Auscultation: normal bowel sounds Rectal Exam - Male: Yes deferred Skin General skin exam: no rashes or lesions noted Neuro General: patient oriented x3, gait normal and moves all extremities Cranial nerves: Yes Equal, round and reactive pupils present Psych Appearance: grossly normal Mental Status: mental status grossly normal Assessment & Plan Assessment & Plan (1) Anemia: Code(s): D64.9 - Anemia, unspecified (2) History of colon polyps: Comment: Pt had a colonoscopy in Apr, 2021 and one medium sized and one small polyps were removed Repeat Colonoscopy was advised in 2 years to check polypectomy site in the sigmoid colon - scheduled on 05/05/23. Code(s): Z86.010 - Personal history of colonic polyps Plan 72 Y AA male (from [place]) with a history of colon polyps. Review of labs showed anemia Pt had a colonoscopy in Apr, 2021 and one medium sized and one small polyps were removed Repeat Colonoscopy was advised in 2 years to check polypectomy site in the sigmoid colon - scheduled on 05/05/23. (Adult colonoscope for future colonoscopies). Biopsies showed: Colon, sigmoid at 30 cm, polyp: Tubular adenomas, three; negative for high-grade dysplasia and carcinoma Patient was advised to have lab tests for evaluation of anemia. EGD will be scheduled (same day as colonoscopy) to rule out upper GI source of anemia. Both procedures and potential complications including bleeding, perforation, reaction to anesthetic and aspiration were reviewed with the patient Since pt had a knee replacement surgery in 12/2022, he will be given antibiotic prophylaxis pre-procedure Orders: Orders Complete Blood Count no Diff Today D64.9 - Anemia, unspecified Ferritin Today D64.9 - Anemia, unspecified Vitamin B12 Today D64.9 - Anemia, unspecified IRON PROFILE Today D64.9 - Anemia, unspecified Transglutaminase Ab IgG Today D64.9 - Anemia, unspecified Transglutaminase IgA Today D64.9 - Anemia, unspecified Immunoglobulin A Today D64.9 - Anemia, unspecified Vitamin D 25-OH Total Today D64.9 - Anemia, unspecified Coding Level of Care Code Est Pt Level 4 (01874) Diagnoses Anemia D64.9 History of colon polyps Z86.010 Time Spent (min) 24
[2023-03-28 10:39] VITALS: BP 132/61; PULSE 72; BMI 26.6
== END 2023-03-28 11:34 | disposition home or self-care (01) ==
PROVIDERS: PCP Internal Medicine; Visit Provider Internal Medicine Gastroenterology
DX: D64.9 Anemia, unspecified (principal); Z86.010 Personal history of colon polyps
CPT/HCPCS: 99214

== ENCOUNTER 2023-04-13 09:32 | Outpatient (AMB) | payer OTHER, SELFPAY ==
[2023-04-13 09:35] VITALS: BMI 25.2
--- NOTE | 2023-04-13 09:35 | A.OFFVIS_ITS ---
Intake Vital Signs 04/13/23 09:35 Height 5 ft 6 in Weight 156 lb BMI 25.2 Intake Visit Reasons: OV -Left TKA 01/17/23 Intake Note: Tobi is a 72 year old male who presents today for a follow up appointment s/p left TKA, DOS 01/17/23 NE Allergies No Known Allergies Allergy (Verified 03/02/23 13:05) HPI OV -Left TKA 01/17/23 HPI Details Tobi is a 72 year old man who presents ~3 months S/P left TKA. He says he is doing well, and his pain is improving. He is doing PT. He describes hyper-flexion stretching done in PT while prone and feeling swelling and pain in his knee after the manuever. He states it feels warm and is uncomfotable PFSH Medical History Osteoarthritis of left knee Hypercholesterolemia Hypertension Surgical History History of left knee surgery Hx of appendectomy History of colonoscopy Family History Mother No problems noted. Father No problems noted. Social History Household Members: Spouse Housing: House Are you a primary hemodialysis patient care specialist to a significant other at home: No Do you presently have visiting nurse or other home services: No Alcohol intake: current Alcohol intake frequency: holidays/special occasions only Alcohol type: beer and wine Comment: occasional use Patient Tobacco Use Status: Former Tobacco user Quit Date: as teenager Tobacco use type: Cigarette e-Cigarette/Vaping Use: Never Used Second Hand Smoke Exposure: No service: No Current occupational status: retired Cognitive needs: No Hearing needs: No Vision needs: Yes (glasses) Review of Systems Const All systems reviewed & are unremarkable except as noted in HPI and below Physical Exam Vital Signs: BMI result Body Mass Index 25.2 Const General: no acute distress, alert and awake Orientation/consciousness: patient oriented x3 HEENT Head: Yes normocephalic and Yes atraumatic Eyes EOM: EOMs intact bilaterally Resp Effort & Inspection: normal respiratory effort and able to speak in complete sentences Cardio Jugular venous distension: no JVD Skin General skin exam: turgor normal Rashes: no rashes Neuro General: patient oriented x3 Extrem Other: Inc c/d/i 0-130 mild effusion expected calor Psych Appearance: grossly normal Affect: normal affect Attitude: cooperative Results Reviewed Results Reviewed: I personally reviewed relevant radiographs Left total knee arthroplasty in expected post operative position with no hardware complications or evidence of loosening Assessment & Plan Assessment & Plan (1) Status post total knee replacement, left: Comment: 01/17/2023 Dr. Varela Code(s): Z96.652 - Presence of left artificial knee joint Plan: Mild effusion after overdoing it in PT. Ice, NSAIDs and work abstination. F/u 4 weeks. Quad strengthening with PT> ROM adequate Plan Scribed for Nabeel Varela MD by Jason Garcia, electromedical service engineer, on 04/13/23 at 9 :55 AM, EST. Medications: New ibuprofen 600 mg PO Q8H PRN 90 tabs 0RF pain Coding Level of Care Code Global (25677) Diagnoses Status post total knee replacement, left Z96.652
== END 2023-04-13 11:28 | disposition home or self-care (01) ==
PROVIDERS: PCP Internal Medicine; Visit Provider Orthopaedic Surgery
DX: Z96.652 Presence of left artificial knee joint (principal)
CPT/HCPCS: 99024

== ENCOUNTER → 2023-04-13 09:32 | Outpatient (BNVA) | payer OTHER, SELFPAY | PROVIDERS: PCP Internal Medicine; Visit Provider Orthopaedic Surgery | DX: Z47.1 Aftercare following joint replacement surgery (principal); Z96.652 Presence of left artificial knee joint | CPT/HCPCS: 99212 ==

== ENCOUNTER 2023-05-05 09:13 | Day surgery (SDC) | payer OTHER, SELFPAY ==
[2023-05-03 07:21] VITALS: BMI 26.6
--- NOTE | 2023-05-04 10:10 | P.CONAN_ITS ---
Documented by User: Blanche Perdue NP 05/04/23 10:12 HPI - Anesthesia Eval Consult details Narrative: 72yo M for Upper Endoscopy and Colonoscopy s/p TKA 12/2022 with spinal PMFSH Active Problems Active Problems: All Active Problems (Updated 03/28/23 @ 11:31 by Destin Vaughn MD) History of colon polyps (Acute) Anemia (Acute) Hyperglycemia (Acute) Status post total knee replacement, left (Acute) Effusion, left knee (Acute) Essential hypertension (Acute) Screening for colon cancer (Acute) Loss of appetite (Acute) Erectile dysfunction (Acute) Physical exam (Acute ~04/07/21) Past Medical History Medical History Osteoarthritis of left knee Hypercholesterolemia Hypertension Family History Family History Mother No problems noted. Father No problems noted. Family history of problems with anesthesia: No Surgical History Surgical History History of left knee surgery Hx of appendectomy History of colonoscopy History of Problems with Anesthesia: No Social History Social History Household Members: Spouse Housing: House Are you a primary health careers instructor to a significant other at home: No Do you presently have visiting nurse or other home services: No Alcohol intake: current Alcohol intake frequency: holidays/special occasions only Alcohol type: beer and wine Comment: occasional use Patient Tobacco Use Status: Former Tobacco user Quit Date: as teenager Tobacco use type: Cigarette e-Cigarette/Vaping Use: Never Used Second Hand Smoke Exposure: No Advance Directives: No Advance Directives Information Provided: Yes service: No Current occupational status: retired Cognitive needs: No Hearing needs: No Vision needs: Yes (glasses) Meds Allergies Allergy/AdvReac Type Severity Reaction Status Date / Time No Known Allergies Allergy Verified 05/05/23 10:08 Home Medications Medication Instructions Recorded Confirmed Last Taken Type losartan 100 mg tablet 100 mg PO QAM 01/10/23 05/05/23 05/05/23 History ascorbate calcium (vitamin C) 500 500 mg PO DAILY 03/28/23 05/05/23 Unknown History mg tablet cholecalciferol (vitamin D3) 125 125 mcg PO DAILY 03/28/23 05/05/23 Unknown History mcg (5,000 unit) capsule melatonin 10 mg capsule 10 mg PO BEDTIME PRN Insomnia 03/28/23 05/05/23 Unknown History multivitamin 1 tab PO DAILY 03/28/23 05/05/23 Unknown History Exam Height,Weight and Vital Signs: Height 5 ft 6 in Weight 74.843 kg Pertinent Lab Results Pertinent Lab Results: Laboratory Tests 01/20/23 01/20/23 03/28/23 04:54 04:54 11:44 WBC 6.5 Hgb 12.4 L Hct 36.8 L D Plt Count 340 D Sodium 138 Potassium 3.3 Chloride 103 Carbon Dioxide 23 BUN 8 L Creatinine 0.77 Narrative Narrative: EKG 12/2022 Vent. Rate : 061 BPM Atrial Rate : 061 BPM P-R Int : 158 ms QRS Dur : 084 ms QT Int : 398 ms P-R-T Axes : 007 040 022 degrees QTc Int : 400 ms Normal sinus rhythm Minimal voltage criteria for LVH, may be normal variant ( Sokolow-Hussein ) Nonspecific ST and T wave abnormality Abnormal ECG No previous ECGs available Assessment and Plan Assessment Anesthesia Assessment: Chart Reviewed Final Anesthetic Review Family History of Problems with Anesthesia: No History of Problems with Anesthesia: No Documented by User: Mimi Fletcher MD 05/05/23 10:29 [facility] Past Medical History Medical History Osteoarthritis of left knee Hypercholesterolemia Hypertension Family History Family History Mother No problems noted. Father No problems noted. Surgical History Surgical History History of left knee surgery Hx of appendectomy History of colonoscopy Social History Social History Household Members: Spouse Housing: House Are you a primary health careers instructor to a significant other at home: No Do you presently have visiting nurse or other home services: No Alcohol intake: current Alcohol intake frequency: holidays/special occasions only Alcohol type: beer and wine Comment: occasional use Patient Tobacco Use Status: Former Tobacco user Quit Date: as teenager Tobacco use type: Cigarette e-Cigarette/Vaping Use: Never Used Second Hand Smoke Exposure: No Advance Directives: No Advance Directives Information Provided: Yes service: No Current occupational status: retired Cognitive needs: No Hearing needs: No Vision needs: Yes (glasses) Meds Allergies Allergy/AdvReac Type Severity Reaction Status Date / Time No Known Allergies Allergy Verified 05/05/23 10:08 Home Medications Medication Instructions Recorded Confirmed Last Taken Type losartan 100 mg tablet 100 mg PO QAM 01/10/23 05/05/23 05/05/23 History ascorbate calcium (vitamin C) 500 500 mg PO DAILY 03/28/23 05/05/23 Unknown History mg tablet cholecalciferol (vitamin D3) 125 125 mcg PO DAILY 03/28/23 05/05/23 Unknown History mcg (5,000 unit) capsule melatonin 10 mg capsule 10 mg PO BEDTIME PRN Insomnia 03/28/23 05/05/23 Unknown History multivitamin 1 tab PO DAILY 03/28/23 05/05/23 Unknown History Exam Airway Mallampati Class: II TM Dist: >3cm Neck ROM: Full Heart: rrr Lungs: cta Assessment and Plan Final Anesthetic Review NPO: Yes ASA Class: II Final Preanesthetic Review: No Changes in Pt Med Stat, Meds/Allgs Chart Reviewed, Consent Obtained/Reviewed and Anes Risks/Benef Reviewed Patient Risk: Low Procedure Risk: Intermediate Anesthetic Plan Anesthetic Plan: MAC: Disposition: Standard PACU
[2023-05-05 09:41] VITALS: BP 132/79; PULSE 71; RESP 18; TEMP 36.6; O2SAT 98
[2023-05-05] MEDS: Lactated Ringers 1,000 ML 100 ML IVCONT (09:44)
--- NOTE | 2023-05-05 09:45 | MHC.SHP ---
Pre-Procedural Eval Section A Date of Service: 05/05/23 The patient is an INPATIENT: No The History & Physical has been completed within 30 days and I have reviewed it.: No Section B Chief Complaint: Surveillance for colon polyps, anemia Relevant Family History (Specify if Yes): No Relevant Social History: Tobacco Use (Former smoker) Present Medications: see Short Stay Collaborative assessment Medical History: Significant History (Osteoarthritis of left knee Hypercholesterolemia Hypertension) History of Previous Operations: Relevant previous surgery/procedure and date(s) (History of left knee surgery Hx of appendectomy History of colonoscopy) Allergies: Allergies Allergy/AdvReac Type Severity Reaction Status Date / Time No Known Allergies Allergy Verified 03/02/23 13:05 Review of Systems Sugical H&P ROS: Negative: Constitution, Cardiovascular, Respiratory and Gastrointestinal Exam Surgical H&P Exam: Normal: Heart, Normal: Lungs, Normal: Extremities and Normal: Abdomen Plan Diagnosis/Plan: Unchanged I have reviewed the history and physical and performed a pertinent physical examination on my patient. No changes have occurred unless specified. Time Spent With Patient Time: Total time managing care of this patient today ____ minutes.
[2023-05-05 10:06] LABS: Glucose, Whole Blood 144 mg/dL (60-115)
[2023-05-05 10:07] VITALS: BMI 26.9
--- NOTE | 2023-05-05 10:31 | W.PM.OPN ---
Operative Note Operative Note Date of Service: 05/05/23 Narrative: FLEXIBLE TRANSORAL UPPER GASTROINTESTINAL ENDOSCOPY WITH BIOPSIES AND COLONOSCOPY TILL CECUM Pre-op diagnosis: Surveillance for colon polyps, anemia Post-op diagnosis: Gastritis, hiatal hernia, diverticulosis, hemorrhoids Endoscopist:? Destin Vaughn MD Anesthesia:?MAC UPPER ENDOSCOPY Consent: Indications for the procedure and potential complications of bleeding, perforation, reaction to medications and missed diagnosis were discussed with the patient and informed consent was obtained. Instrument: Olympus GIF H 190 mid size upper endoscope Monitoring: Vital signs and clinical assessment, continuous EKG monitoring, Pulse oximetry, Carbon Dioxide monitoring and blood pressure monitoring were done throughout the procedure. Procedure: The patient was placed in the left lateral decubitis position and pre-procedure medications were administered and a bite block was placed. The endoscope was inserted into the mouth and advanced under direct vision to the third part of duodenum. A careful inspection was made as the upper endoscope was withdrawn including a retroflexed examination of the proximal stomach; Findings and interventions are described below. Findings: Larynx: Normal Esophagus: GE junction at 36 cms, small hiatal hernia 36 to 38 cms. No esophagitis or Mitchell's. Stomach: Minimal gastric erythema. Biopsies were obtained. Grade 2 flap valve on retroflexed examination of the cardia. Duodenum: Normal bulb and descending duodenum Intervention: Biopsies as noted above COLONOSCOPY PROCEDURE NOTE Consent: Indications for the procedure and potential complications of bleeding, perforation, reaction to medications and missed diagnosis were discussed with the patient and informed consent was obtained. Instrument: Olympus PCF H 190 L variable stiffness pediatric colonoscope Monitoring: Vital signs and clinical assessment, intermittent blood pressure monitoring, continuous EKG monitoring, Pulse oximetry and Carbon Dioxide monitoring were done throughout the procedure. Colon withdrawl time was 13 minutes. Procedure: The patient was placed in the left lateral decubitis position and pre-procedure medications were administered. After a digital rectal examination of the ano-rectum, the video colonoscope was inserted into the rectum and advanced through the colon to the cecum. The colonoscope was slowly withdrawn in a retrograde panoramic fashion and the colon mucosa was carefully examined including a retroflexed view of the rectum. Findings and interventions are described below. Procedure Difficulty: Colon was long and there was some loop formation Findings: Terminal Ileum: Not evaluated Cecum: Normal Ascending Colon: Normal Transverse Colon: Normal Descending Colon: Normal Sigmoid Colon: Polypectomy site visualized at 30 cms and no recurrent polyp was seen. Moderate diverticulosis Rectum: Normal Ano-rectum: Moderate internal hemorrhoids Colon preparation: Good after some irrigation Impression and Post Procedure Diagnosis: Endoscopy Findings: ESOPHAGUS: small hiatal hernia STOMACH: minimal antral gastritis Colonoscopy Findings: No polyps were detected. Polypectomy site visualized at 30 cms and no recurrent polyp was seen. Moderate diverticulosis seen in the sigmoid colon Moderate hemorrhoids on retroflexed exam. Plan: Patient has an appointment on 06/08/23 in the GI Clinic with Destin Vaughn M.D. Repeat Colonoscopy in 5 years (due to a hx of adenomatous colon polyps). Above findings were reviewed with the patient and colon polyps and diverticulosis handouts were given in the discharge area
[2023-05-05 11:17] VITALS: BP 102/66; PULSE 72; RESP 16; TEMP 36.1; O2SAT 97
[2023-05-05 11:37] VITALS: BP 113/73; PULSE 67; RESP 18; TEMP 36.1; O2SAT 98
== END 2023-05-05 12:10 | disposition home or self-care (01) ==
PROVIDERS: PCP Internal Medicine; Visit Provider Internal Medicine Gastroenterology
PROC: (CPT 43239; principal; 2023-05-05 10:10)
DX: Z12.11 Encounter for screening for malignant neoplasm of colon (principal); Z86.010 Personal history of colon polyps; K57.30 Diverticulosis of large intestine without perforation or abscess without bleeding; K64.8 Other hemorrhoids; K59.00 Constipation, unspecified; D64.9 Anemia, unspecified; K29.50 Unspecified chronic gastritis without bleeding; K44.9 Diaphragmatic hernia without obstruction or gangrene; I10 Essential (primary) hypertension; E78.00 Pure hypercholesterolemia, unspecified; M17.12 Unilateral primary osteoarthritis, left knee; Z79.82 Long term (current) use of aspirin; Z79.899 Other long term (current) drug therapy; Z79.84 Long term (current) use of oral hypoglycemic drugs; Z99.89 Dependence on other enabling machines and devices; Z87.891 Personal history of nicotine dependence
CPT/HCPCS: 43239; G0105; 82947; 88305; 88342; J2704

== ENCOUNTER → 2023-05-05 09:13 | Outpatient (BNV) | payer OTHER, SELFPAY | PROVIDERS: PCP Internal Medicine; Visit Provider Internal Medicine Gastroenterology | DX: Z12.11 Encounter for screening for malignant neoplasm of colon (principal); Z86.010 Personal history of colon polyps; K57.30 Diverticulosis of large intestine without perforation or abscess without bleeding; K64.8 Other hemorrhoids; D64.9 Anemia, unspecified; K29.70 Gastritis, unspecified, without bleeding; K44.9 Diaphragmatic hernia without obstruction or gangrene | CPT/HCPCS: 43239; G0105 ==

== ENCOUNTER 2023-05-11 07:53 | Outpatient (REF) | payer OTHER, SELFPAY ==
--- NOTE | ~2023-05-11 | XR_ITS ---
EXAMINATION: Left knee x-ray. Frontal bilateral knee x-rays. INDICATION: Status post total knee arthroplasty, knee pain. COMPARISON: Left knee x-ray on 01/17/2023 TECHNIQUE: Upright Frontal, lateral and sunrise view X-rays of Left knee. Frontal upright x-ray of bilateral knees. FINDINGS: BONES: Bony structures are intact. There is no focal bone destruction or periosteal reaction seen. JOINTS: There is normal alignment of the left total knee arthroplasty prostheses with patellar resurfacing. There is marked decrease in medial and lateral compartment right knee joint space. SOFT TISSUE: Left suprapatellar fat pad shows bulging increase in density. No abnormal air collection is seen. XR/XR knee LT 2V IMPRESSION: 1. Unchanged normal alignment of left total knee arthroplasty prostheses. 2. Marked degenerative changes of the right knee joint. 3. Recurrent Left knee effusion is present.
--- NOTE | ~2023-05-11 | XR_ITS ---
EXAMINATION: Left knee x-ray. Frontal bilateral knee x-rays. INDICATION: Status post total knee arthroplasty, knee pain. COMPARISON: Left knee x-ray on 01/17/2023 TECHNIQUE: Upright Frontal, lateral and sunrise view X-rays of Left knee. Frontal upright x-ray of bilateral knees. FINDINGS: BONES: Bony structures are intact. There is no focal bone destruction or periosteal reaction seen. JOINTS: There is normal alignment of the left total knee arthroplasty prostheses with patellar resurfacing. There is marked decrease in medial and lateral compartment right knee joint space. SOFT TISSUE: Left suprapatellar fat pad shows bulging increase in density. No abnormal air collection is seen. XR/XR knee standing BI IMPRESSION: 1. Unchanged normal alignment of left total knee arthroplasty prostheses. 2. Marked degenerative changes of the right knee joint. 3. Recurrent Left knee effusion is present.
== END 2023-05-11 07:54 | disposition home or self-care (01) ==
LOC: HO.HOSX 07:53
PROVIDERS: Visit Provider Orthopaedic Surgery
DX: M25.562 Pain in left knee (principal); M25.462 Effusion, left knee; Z96.652 Presence of left artificial knee joint
CPT/HCPCS: 73560; 73565; 99212

== ENCOUNTER 2023-05-11 09:15 | Outpatient (AMB) | payer OTHER, SELFPAY ==
--- NOTE | 2023-05-11 09:20 | MHC.OFFVIS ---
Intake Vital Signs 05/11/23 10:02 Height 5 ft 6 in Weight 164 lb BMI 26.5 Intake Visit Reasons: OV-Left TKA 01/17/23-follow up Intake Note: Tobi is a 72 year old male who presents today for a follow up appointment s/p left TKA, DOS 01/17/23 NE. He reports sharp pain in his knee at times. It is not constant pain and he denies injury. X rays updated today in the office. Allergies No Known Allergies Allergy (Verified 05/11/23 10:02) Medication List - Last Reconciled 05/11/23 by Pattie Amador, YASIR amlodipine 20 mg (2 x 10 mg) PO QAM ascorbate calcium (vitamin C) 500 mg PO DAILY aspirin 325 mg PO BID 42 days blood sugar diagnostic ([employer] Ultra Test strips) test once per day blood-glucose meter ([employer] Ultra2 Meter) test once per day cholecalciferol (vitamin D3) 125 mcg PO DAILY [Hand held shower head As directed] ibuprofen 600 mg PO Q8H PRN lancets ([employer] UltraSoft 2 Lancet) test once per day losartan 100 mg PO QAM melatonin 10 mg PO BEDTIME PRN metformin 500 mg PO BID multivitamin 1 tab PO DAILY oxycodone 5 mg PO Q8H PRN 7 days [Raised toilet seat As directed] [SHOWER CHAIR As directed] simvastatin 20 mg PO BEDTIME walker Folding Front wheeled walker HPI OV-Left TKA 01/17/23-follow up HPI Details Tobi is a 72 year old man who presents ~4 months S/P left TKA. He complains of sharp intermittent pain in his left knee at times. He continues to work with PT, and has been taking NSAIDs & icing his knee when sore, which has been helpful. [facility] Medical History Osteoarthritis of left knee Hypercholesterolemia Hypertension Surgical History History of left knee surgery Hx of appendectomy History of colonoscopy Family History Mother No problems noted. Father No problems noted. Social History Household Members: Spouse Housing: House Are you a primary neurocritical care physician to a significant other at home: No Do you presently have visiting nurse or other home services: No Alcohol intake: current Alcohol intake frequency: holidays/special occasions only Alcohol type: beer and wine Comment: occasional use Patient Tobacco Use Status: Former Tobacco user Quit Date: as teenager Tobacco use type: Cigarette e-Cigarette/Vaping Use: Never Used Second Hand Smoke Exposure: No service: No Current occupational status: retired Cognitive needs: No Hearing needs: No Vision needs: Yes (glasses) Review of Systems Const All systems reviewed & are unremarkable except as noted in HPI and below Physical Exam Vital Signs: BMI result Body Mass Index 26.5 Const General: no acute distress, alert and awake Orientation/consciousness: patient oriented x3 HEENT Head: Yes normocephalic and Yes atraumatic Eyes EOM: EOMs intact bilaterally Resp Effort & Inspection: normal respiratory effort and able to speak in complete sentences Cardio Jugular venous distension: no JVD Skin General skin exam: turgor normal Rashes: no rashes Neuro General: patient oriented x3 Extrem Other: 0-135 deg stable arc inc c/d/i Psych Appearance: grossly normal Affect: normal affect Attitude: cooperative Results Reviewed Results Reviewed: I personally reviewed relevant radiographs. Left total knee arthroplasty in expected post operative position with no hardware complications or evidence of loosening Assessment & Plan Assessment & Plan (1) Status post total knee replacement, left: Comment: 01/17/2023 Dr. Varela Code(s): Z96.652 - Presence of left artificial knee joint Plan: Doing well F/u 8 months Plan Prepared for Nabeel Varela MD by Jason Garcia, medical administrator, on 05/11/23 at 10:05 AM, EST. Orders: Orders XR knee LT 2V Today M25.569 - Pain in unspecified knee XR knee standing BI Today M25.569 - Pain in unspecified knee Coding Level of Care Code Est Pt Level 3 (57571) Diagnoses Status post total knee replacement, left Z96.652
[2023-05-11 10:02] VITALS: BMI 26.5
== END 2023-05-11 10:48 | disposition home or self-care (01) ==
PROVIDERS: PCP Internal Medicine; Visit Provider Orthopaedic Surgery
DX: M25.562 Pain in left knee (principal); Z96.652 Presence of left artificial knee joint
CPT/HCPCS: 99213

== ENCOUNTER 2023-06-08 08:23 | Outpatient (AMB) | payer OTHER, SELFPAY ==
--- NOTE | 2023-06-08 08:39 | A.OFFPC_ITS ---
Vital Signs 06/08/23 08:42 Height 5 ft 6 in Weight 173 lb 2 oz BMI 27.9 BP 138/70 Blood Pressure Location Lt brachial Position Sitting Pulse 77 Pulse Source Pulse Oximeter Pulse Oximetry (%) 98 Oxygen Delivery Method Room Air Intake Visit Reasons: HTN, DM Intake Note: Patient is here to follow up on HTN, DM. Dog Licenser Required: No Client Technical Professional: Not Required per policy Accompanied by: Self / Same As Patient Allergies No Known Allergies Allergy (Verified 06/08/23 10:14) Medication List - Last Reconciled 06/08/23 by Dylan Shabazz MD amlodipine 20 mg (2 x 10 mg) PO QAM ascorbate calcium (vitamin C) 500 mg PO DAILY aspirin 325 mg PO BID 42 days blood sugar diagnostic ([employer]uch Ultra Test strips) test once per day blood-glucose meter ([employer] Ultra2 Meter) test once per day cholecalciferol (vitamin D3) 125 mcg PO DAILY [Hand held shower head As directed] ibuprofen 600 mg PO Q8H PRN lancets ([employer] UltraSoft 2 Lancet) test once per day losartan 100 mg PO QAM melatonin 10 mg PO BEDTIME PRN metformin 500 mg PO BID multivitamin 1 tab PO DAILY oxycodone 5 mg PO Q8H PRN 7 days [Raised toilet seat As directed] [SHOWER CHAIR As directed] simvastatin 20 mg PO BEDTIME walker Folding Front wheeled walker Tobacco use date assessed: 06/08/23 Fall risk assessment: No Falls in past year Last assessed Fall Risk: 06/08/23 Dental Screening Dental Screen Date: 06/08/23 Did you have a dental visit in the last 12 months?: No Did you have a dental problem in the last 6 months where you did not have access to dental care?: No Was dental information given to patient?: No HPI HTN, DM HPI Details 72-year-old male presents to the office to discuss his chronic medical conditions. Patient is compliant with medications and reporting no side effects. Able to function and do all activities of daily living. Recently had a colonoscopy that showed diverticulosis. [facility] Medical History (Updated 06/08/23 @ 10:16 by Dylan Shabazz MD) Diabetes mellitus Osteoarthritis of left knee Hypercholesterolemia Hypertension Surgical History History of left knee surgery Hx of appendectomy History of colonoscopy Family History Mother No problems noted. Father No problems noted. Social History Household Members: Spouse Housing: House Are you a primary hospice spiritual care coordinator to a significant other at home: No Do you presently have visiting nurse or other home services: No Alcohol intake: current Alcohol intake frequency: holidays/special occasions only Alcohol type: beer and wine Comment: occasional use Patient Tobacco Use Status: Former Tobacco user Quit Date: as teenager Tobacco use type: Cigarette e-Cigarette/Vaping Use: Never Used Second Hand Smoke Exposure: No service: No Current occupational status: retired Cognitive needs: No Hearing needs: No Vision needs: Yes (glasses) Questionnaire PHQ-9 Over the last 2 weeks, how often have you been bothered by any of the following problems? 1. Little interest or pleasure in doing things: not at all 2. Feeling down, depressed, or hopeless: not at all 3. Trouble falling or staying asleep, or sleeping too much: not at all 4. Feeling tired or having little energy: not at all 5. Poor appetite or overeating: not at all 6. Feeling bad about yourself - or that you are a failure or have let yourself or your family down: not at all 7. Trouble concentrating on things, such as reading the newspaper or watching television: not at all 8. Moving or speaking so slowly that other people could have noticed. Or the opposite - being so fidgety or restless that you have been moving around a lot more than usual: not at all 9. Thoughts that you would be better off or of hurting yourself in some way: not at all Total score: 0 Depression Screening Interpretation: Negative Depression Screening Done: Yes Source: Developed by Drs. Kevin Linder, Natividad Johnson, Filemon Flanagan and colleagues, with an educational jaret from [employer]. Thrive Questionnaire Date Thrive assessed: 06/08/23 I am a: Patient What is your living situation today?: I have a steady place to live Within the past 12 months, did the food you bought not last and you didn't have the money to get more?: Never true Within the past 12 months, did you worry whether your food would run out before you got money to buy more?: Never true Do you have trouble paying for medicines?: No Do you have trouble getting transportation to medical appointments?: No Do you have trouble paying your heating and electricity bill?: No Do you have trouble taking care of your child, family member or friend?: No Do you have trouble with day-to-day activities such as bathing, preparing meals, shopping, managing finances, etc.?: No Are you currently unemployed and looking for a job?: No Are you interested in more education?: No Currently or been in a relationship where the following occur: no concerns reported THRIVE Score: 0 AUDIT C Alcohol Use Questionnaire (AUDIT-C) 1. How often do you have a drink containing alcohol?: Never Total Score: 0 LEVAR-7 AMB Questionnaire LEVAR-7 Date LEVAR - 7 assessed: 06/08/23 Feeling nervous, anxious, or on edge: 0 = Not at all Not being able to stop or control worryin = Not at all Worrying too much about different things: 0 = Not at all Trouble relaxin = Not at all Being so restless that it is hard to sit still: 0 = Not at all Becoming easily annoyed or irritable: 0 = Not at all Feeling afraid as if something awful might happen: 0 = Not at all Total LEVAR-7 score (0-4 normal; 5-9 mild; 10-14 moderate; 15-21 severe): 0 Source: Developed by Drs. Kevin Linder, Natividad Johnson, Filemon Flanagan and colleagues, with an educational jaret from [employer]. Physical exam (Primary Care) Vital Signs: Last Vital Signs Pulse 77 06/08/23 08:42 BP 138/70 06/08/23 08:42 Pulse Ox 98 06/08/23 08:42 Oxygen Delivery Method Room Air 06/08/23 08:42 Care Plan Goal for BP management: Blood pressure is in range. Continue current medications. BMI result Body Mass Index 27.9 Tobacco/Smoking Status: Tobacco use Status Tobacco use date assessed 06/08/23 06/08/23 08:51 Patient Tobacco Use Status Former Tobacco user 06/08/23 08:40 Tobacco use type Cigarette 06/08/23 08:40 e-Cigarette/Vaping Use Never Used 06/08/23 08:40 PHQ-9: PHQ-9 Score PHQ-9: Total score 0 06/08/23 08:52 Depression Screening Interpretation: Negative Thrive Assessment: Date of Thrive Assessment Date Thrive assessed 06/08/23 06/08/23 08:51 Currently or been in a relationship where the following occur: no concerns reported Advance Care Planning discussion: Exists, not on file Date of discussion: 06/08/23 Who was present: Patient Forms completed: Health Care Proxy Actual minutes spent: 5 Const General: cooperative and healthy appearing Nutritional Appearance: well nourished Orientation/consciousness: patient oriented x3 Limitations: no limitations HENMT Head: Yes normal to inspection Eyes General: appearance normal, both eyes and all related structures Neck Neck: Yes normal visual inspection Chest Chest palpation & inspection: normal palpation of entire chest wall Resp Effort & Inspection: normal respiratory effort Neuro General: patient oriented x3 Results AMB Hemoglobin A1c AMB Hemoglobin A1c 7.2 % Last Edit by CARLA Buckley on 06/08/23 08:53 Results Reviewed Results Reviewed: Laboratory Last Values Hgb A1c (Clinic) 7.2 % (4.0-6.0) H 06/08/23 08:40 Assessment and Plan Assessment & Plan (1) Essential hypertension: Code(s): I10 - Essential (primary) hypertension Plan: Blood pressure is in range. Continue current medications. (2) Diabetes mellitus: Code(s): E11.9 - Type 2 diabetes mellitus without complications Plan: A1c is in range. Continue medications at same dosage. Orders: Orders AMB Hemoglobin A1c Today R73.9 - Hyperglycemia, unspecified Coding Level of Care Code Est Pt Level 4 (42854) Diagnoses Essential hypertension I10 Diabetes mellitus E11.9 Additional Codes Vital Signs *Quality* - Advance Care Planning discussion: Exists, not on file ([id number])
[2023-06-08 08:42] VITALS: BP 138/70; PULSE 77; O2SAT 98; BMI 27.9
== END 2023-06-08 13:26 | disposition home or self-care (01) ==
PROVIDERS: PCP Internal Medicine; Visit Provider Internal Medicine
DX: I10 Essential (primary) hypertension (principal); E11.9 Type 2 diabetes mellitus without complications; R73.9 Hyperglycemia, unspecified; Z00.00 Encounter for general adult medical examination without abnormal findings
CPT/HCPCS: 1123F; 83036; 99214

== ENCOUNTER 2023-06-08 10:23 | Outpatient (AMB) | payer OTHER, SELFPAY ==
--- NOTE | 2023-06-08 10:30 | MHC.OFFVIS ---
Vital Signs 06/08/23 10:33 Height 5 ft 6 in Weight 170 lb BMI 27.4 BP 120/64 Blood Pressure Location Lt brachial Position Sitting Pulse 69 Intake Visit Reasons: 2 month follow up Intake Note: Patient follow up for Anemia and lab results. Patient no appetite denies any other GI issues. Commission Specialist Required: No Accompanied by: Self / Same As Patient Allergies No Known Allergies Allergy (Verified 08/29/23 16:45) Medication List - Last Reconciled 06/08/23 by Destin Vaughn MD amlodipine 20 mg (2 x 10 mg) PO QAM ascorbate calcium (vitamin C) 500 mg PO DAILY aspirin 325 mg PO BID 42 days blood sugar diagnostic ([employer] Ultra Test strips) test once per day blood-glucose meter ([employer] Ultra2 Meter) test once per day cholecalciferol (vitamin D3) 125 mcg PO DAILY [Hand held shower head As directed] ibuprofen 600 mg PO Q8H PRN lancets ([employer] UltraSoft 2 Lancet) test once per day losartan 100 mg PO QAM melatonin 10 mg PO BEDTIME PRN metformin 500 mg PO BID multivitamin 1 tab PO DAILY [Raised toilet seat As directed] [SHOWER CHAIR As directed] simvastatin 20 mg PO BEDTIME walker Folding Front wheeled walker HPI HPI 2 month follow up: Details: GI clinic visit for this 72 Y AA male (from [place]) for fu of colon polyps. Review of labs showed anemia LABS IN [facility] : Reviewed ENDOSCOPIC STUDIES: 05/05/23 EGD AND COLON SHOWED: Endoscopy Findings: ESOPHAGUS: small hiatal hernia STOMACH: minimal antral gastritis Colonoscopy Findings: No polyps were detected. Polypectomy site visualized at 30 cms and no recurrent polyp was seen. Moderate diverticulosis seen in the sigmoid colon Moderate hemorrhoids on retroflexed exam. Plan: Repeat Colonoscopy in 5 years (due to a hx of adenomatous colon polyps). 04/30/21 COLONOSCOPY SHOWED: Sigmoid Colon:? A 2-3 mm sessile polyp removed with a cold biopsy. A 2 to 2.5 cms pedunculated polyp at 30 cms removed with a hot snare.? Polypectomy site was marked by adrienne ink (submucosal injection). Rectum:? Normal Ano-rectum:? Moderate internal hemorrhoids Colon preparation:? Good? Impression and Post Procedure Diagnosis: Colonoscopy Findings: One medium sized and one small polyps removed Moderate hemorrhoids on retroflexed exam. Plan: Repeat Colonoscopy interval based on path results - in 2 years if polyps are adenomatous to check polypectomy site in the sigmoid colon and 10 years if polyps are hyperplastic. (Adult colonoscope for future colonoscopies).Biopsies showed: Colon, sigmoid at 30 cm, polyp: Tubular adenomas, three; negative for high-grade dysplasia and carcinoma TODAY'S VISIT: Patient follow up for Anemia and lab results. Patient no appetite denies any other GI issues. Pt complains of poor appetite and does not feel hungry. Takes a cup of coffee in the morning and does not feel like eating the rest of the day. Diagnosed with DM recently. Had left knee replacement on 01/17/23. Patient denies symptoms of heartburn, dysphagia, nausea, vomiting, change in appetite or weight. Denies recent change in bowel habits, constipation, diarrhea, black stools or rectal bleeding. Pt has one BM daily Pt denies smoking and takes one bottle of beer occasionally Patient complains of intermittent snoring and denies major cardiac or pulmonary problems, sleep apnea Denies problems with anesthesia in the past. Denies being on chronic anticoagulation. Patient denies known family history of colon polyps, colon cancer or other GI malignancies. 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 He has 10 adult children (some are working in [facility] [place] - his home country, after finishing University education) [facility] Medical History (Updated 06/08/23 @ 11:13 by Destin Vaughn MD) Diabetes mellitus Osteoarthritis of left knee Hypercholesterolemia Hypertension Surgical History History of left knee surgery Hx of appendectomy History of colonoscopy Family History Mother No problems noted. Father No problems noted. Social History Household Members: Spouse Housing: House Are you a primary family member caretaker to a significant other at home: No Do you presently have visiting nurse or other home services: No Alcohol intake: current Alcohol intake frequency: holidays/special occasions only Alcohol type: beer and wine Comment: occasional use Patient Tobacco Use Status: Former Tobacco user Quit Date: as teenager Tobacco use type: Cigarette e-Cigarette/Vaping Use: Never Used Second Hand Smoke Exposure: No service: No Current occupational status: retired Cognitive needs: No Hearing needs: No Vision needs: Yes (glasses) Review of Systems Const All systems reviewed & are unremarkable except as noted in HPI and below Physical Exam Vital Signs: Last Vital Signs Pulse 69 06/08/23 10:33 BP 120/64 06/08/23 10:33 BMI result Body Mass Index 27.4 Const General: healthy appearing and no acute distress Nutritional Appearance: overweight Orientation/consciousness: patient oriented x3 Limitations: no limitations HEENT Head: Yes normal to inspection Ears: hearing grossly normal bilaterally Eyes Sclerae: sclerae normal Pupils: Equal, round and reactive pupils present Neck Neck: Yes normal visual inspection Chest Chest palpation & inspection: normal inspection of the chest Resp Effort & Inspection: normal respiratory effort Auscultation: clear to auscultation bilaterally Cardio Palpation: normal PMI Rate: regular rate Rhythm: regular rhythm Heart sounds: S1 normal heart sound present, S2 normal heart sound present and no murmurs GI Palpation (GI): Soft to palpation, nontender and No hepatosplenomegaly present Auscultation: normal bowel sounds Rectal Exam - Male: Yes deferred Skin General skin exam: no rashes or lesions noted Neuro General: patient oriented x3, gait normal and moves all extremities Cranial nerves: Yes Equal, round and reactive pupils present Psych Appearance: grossly normal Mental Status: mental status grossly normal Results AMB Hemoglobin A1c AMB Hemoglobin A1c 7.2 % Last Edit by CARLA Buckley on 06/08/23 08:53 Assessment & Plan Assessment & Plan (1) History of colon polyps: Comment: Pt had a colonoscopy in Apr, 2021 and one medium sized and one small polyps were removed Repeat Colonoscopy was advised in 2 years to check polypectomy site in the sigmoid colon - scheduled on 05/05/23. Code(s): Z86.010 - Personal history of colonic polyps Category: Medical (2) Anemia: Code(s): D64.9 - Anemia, unspecified Category: Medical (3) Decreased appetite: Code(s): R63.0 - Anorexia Category: Medical Plan 72 Y AA male (from [facility]) with a history of colon polyps. Review of labs showed anemia Pt had a colonoscopy in Apr, 2021 and one medium sized and one small polyps were removed Repeat Colonoscopy was advised in 2 years to check polypectomy site in the sigmoid colon - scheduled on 05/05/23. (Adult colonoscope for future colonoscopies). Biopsies showed: Colon, sigmoid at 30 cm, polyp: Tubular adenomas, three; negative for high-grade dysplasia and carcinoma Patient was advised to have lab tests for evaluation of anemia. 05/05/23 EGD and colonoscopy was performed and results as noted above 06/08/23 Pt complains of poor appetite and does not feel hungry. Takes a cup of coffee in the morning and does not feel like eating the rest of the day. Wt has been stable over the past year Pt was advised to start Famotidine 20 mg daily FU in 6 months Orders: Orders Complete Blood Count no Diff 06/08/23 D64.9 - Anemia, unspecified Medications: New famotidine 20 mg PO DAILY 60 tabs 0RF 60 days R63.0 - Anorexia Coding Level of Care Code Est Pt Level 3 (77216) Diagnoses History of colon polyps Z86.010 Anemia D64.9 Decreased appetite R63.0 Time Spent (min) 18
[2023-06-08 10:33] VITALS: BP 120/64; PULSE 69; BMI 27.4
== END 2023-06-08 11:19 | disposition home or self-care (01) ==
PROVIDERS: PCP Internal Medicine; Visit Provider Internal Medicine Gastroenterology
DX: K29.70 Gastritis, unspecified, without bleeding (principal); D64.9 Anemia, unspecified; R63.0 Anorexia
CPT/HCPCS: 99213

== ENCOUNTER 2023-06-08 10:23 | Outpatient (REF) | payer OTHER, SELFPAY ==
[2023-06-08 11:53] LABS: Hematocrit 36.3 % (42.0-52.0); Hemoglobin 12.8 g/dl (14.0-18.0); Mean Corpuscular HGB Conc 35.3 g/dl (31.0-36.0); Mean Corpuscular Volume 85.2 fL (80.0-98.0); Mean Platelet Volume 8.9 fL (9.4-12.4); Platelet Count 304 X10*3/uL (160-400); Red Blood Count 4.26 X10*6/uL (4.60-5.80); Red Cell Distribution Width 13.6 % (11.0-16.0); White Blood Count 5.4 X10*3/uL (4.8-10.8)
== END 2023-06-08 10:24 | disposition home or self-care (01) ==
LOC: HO.LAB 10:23
PROVIDERS: PCP Internal Medicine; Visit Provider Internal Medicine Gastroenterology
DX: D64.9 Anemia, unspecified (principal); R63.0 Anorexia; Z79.899 Other long term (current) drug therapy; Z86.010 Personal history of colon polyps
CPT/HCPCS: 36415; 85027; 99212

== ENCOUNTER 2023-07-13 09:08 | Outpatient (AMB) | payer OTHER, SELFPAY ==
[2023-07-13 09:09] VITALS: BMI 27.4
--- NOTE | 2023-07-13 09:09 | MHC.OFFVIS ---
Intake Vital Signs 07/13/23 09:09 Height 5 ft 6 in Weight 170 lb BMI 27.4 Intake Visit Reasons: ov- LT knee pain s/p TKA 01/17/23 Intake Note: Tobi is a 72 year old male who presents today for a follow up of his Left Knee s/p Left TKA 06/30/2023. Patient reports that he is having continued pain with the knee. He has increased swelling as well as pain in the lateral and medial aspect of the knee. Allergies No Known Allergies Allergy (Verified 07/13/23 09:53) HPI ov- LT knee pain s/p TKA 01/17/23 HPI Details 6 months s/p left TKA. He is doing better than at last visit but still with moderate effusion. He has minimal pain. [facility] Medical History (Updated 06/08/23 @ 11:13 by Destin Vaughn MD) Diabetes mellitus Osteoarthritis of left knee Hypercholesterolemia Hypertension Surgical History History of left knee surgery Hx of appendectomy History of colonoscopy Family History Mother No problems noted. Father No problems noted. Social History Household Members: Spouse Housing: House Are you a primary direct support professional caregiver to a significant other at home: No Do you presently have visiting nurse or other home services: No Alcohol intake: current Alcohol intake frequency: holidays/special occasions only Alcohol type: beer and wine Comment: occasional use Patient Tobacco Use Status: Former Tobacco user Quit Date: as teenager Tobacco use type: Cigarette e-Cigarette/Vaping Use: Never Used Second Hand Smoke Exposure: No service: No Current occupational status: retired Cognitive needs: No Hearing needs: No Vision needs: Yes (glasses) Physical Exam Vital Signs: BMI result Body Mass Index 27.4 Extrem Other: Full ROM Inc c/d/i Moderate effusion Quad atrophic Assessment & Plan Assessment & Plan (1) Status post total knee replacement, left: Comment: 01/17/2023 Dr. Varela Code(s): Z96.652 - Presence of left artificial knee joint Plan: Left TKA improving but still with effusion. I recommend quad strengthening and NSAIDs Medications: New naproxen (EC-Naprosyn) 500 mg PO BID PRN 60 tabs 0RF pain Coding Level of Care Code Est Pt Level 3 (36632) Diagnoses Status post total knee replacement, left Z96.652
== END 2023-07-13 09:36 | disposition home or self-care (01) ==
PROVIDERS: PCP Internal Medicine; Visit Provider Orthopaedic Surgery
DX: Z47.89 Encounter for other orthopedic aftercare (principal); Z96.652 Presence of left artificial knee joint
CPT/HCPCS: 99214

== ENCOUNTER → 2023-07-13 09:08 | Outpatient (BNVA) | payer OTHER, SELFPAY | PROVIDERS: PCP Internal Medicine; Visit Provider Orthopaedic Surgery | DX: M25.562 Pain in left knee (principal); Z96.652 Presence of left artificial knee joint | CPT/HCPCS: 99212 ==

== ENCOUNTER 2023-07-13 09:47 | Outpatient (AMB) | payer OTHER, SELFPAY ==
--- NOTE | 2023-07-13 09:52 | A.OFFPC_ITS ---
Vital Signs 07/13/23 09:53 Height 5 ft 6 in Weight 174 lb 6 oz BMI 28.1 BP 130/68 Blood Pressure Location Lt brachial Position Sitting Pulse 72 Pulse Source Pulse Oximeter Pulse Oximetry (%) 99 Oxygen Delivery Method Room Air Intake Visit Reasons: abdominal pain Intake Note: Patient is here today for abdominal pain Learning And Development Assistant Required: No Ux Visual Designer: Not Required per policy Accompanied by: Self / Same As Patient Allergies No Known Allergies Allergy (Verified 07/13/23 10:29) Medication List - Last Reconciled 07/13/23 by Dylan Shabazz MD amlodipine 20 mg (2 x 10 mg) PO QAM ascorbate calcium (vitamin C) 500 mg PO DAILY aspirin 325 mg PO BID 42 days blood sugar diagnostic ([employer] Ultra Test strips) test once per day blood-glucose meter ([employer] Ultra2 Meter) test once per day cholecalciferol (vitamin D3) 125 mcg PO DAILY famotidine 20 mg PO DAILY 60 days [Hand held shower head As directed] ibuprofen 600 mg PO Q8H PRN lancets ([employer] UltraSoft 2 Lancet) test once per day losartan 100 mg PO QAM melatonin 10 mg PO BEDTIME PRN metformin 500 mg PO BID multivitamin 1 tab PO DAILY naproxen (EC-Naprosyn) 500 mg PO BID PRN [Raised toilet seat As directed] [SHOWER CHAIR As directed] simvastatin 20 mg PO BEDTIME walker Folding Front wheeled walker Tobacco use date assessed: 07/13/23 HPI abdominal pain HPI Details 72-year-old male presents to the office for a sick visit. Patient has been experiencing minimal lower abdominal discomfort. He has regular bowel movements. No nausea or vomiting. His appetite is normal. No fevers or chills. Traveling to [facility] at the end of this month. [facility] Medical History (Updated 06/08/23 @ 11:13 by Destin Vaughn MD) Diabetes mellitus Osteoarthritis of left knee Hypercholesterolemia Hypertension Surgical History History of left knee surgery Hx of appendectomy History of colonoscopy Family History Mother No problems noted. Father No problems noted. Social History (Reviewed 07/13/23 @ 09:53 by LOYDA Buckley Household Members: Spouse Housing: House Are you a primary transition of care specialist to a significant other at home: No Do you presently have visiting nurse or other home services: No Alcohol intake: current Alcohol intake frequency: holidays/special occasions only Alcohol type: beer and wine Comment: occasional use Patient Tobacco Use Status: Former Tobacco user Quit Date: as teenager Tobacco use type: Cigarette e-Cigarette/Vaping Use: Never Used Second Hand Smoke Exposure: No service: No Current occupational status: retired Cognitive needs: No Hearing needs: No Vision needs: Yes (glasses) Questionnaire Thrive Questionnaire Date Thrive assessed: 06/08/23 LEVAR-7 AMB Questionnaire LEVAR-7 Date LEVAR - 7 assessed: 06/08/23 Source: Developed by Drs. Kevin Linder, Natividad Johnson, Filemon Flanagan and colleagues, with an educational jaret from [employer]. Physical exam (Primary Care) Vital Signs: Last Vital Signs Pulse 72 07/13/23 09:53 BP 130/68 07/13/23 09:53 Pulse Ox 99 07/13/23 09:53 Oxygen Delivery Method Room Air 07/13/23 09:53 BMI result Body Mass Index 28.1 Tobacco/Smoking Status: Tobacco use Status Tobacco use date assessed 07/13/23 07/13/23 09:59 Patient Tobacco Use Status Former Tobacco user 07/13/23 09:59 Tobacco use type Cigarette 07/13/23 09:59 e-Cigarette/Vaping Use Never Used 07/13/23 09:59 Thrive Assessment: Date of Thrive Assessment Date Thrive assessed 06/08/23 07/13/23 09:59 Const General: cooperative and healthy appearing Nutritional Appearance: well nourished Orientation/consciousness: patient oriented x3 Limitations: no limitations HENMT Head: Yes normal to inspection Eyes General: appearance normal, both eyes and all related structures Neck Neck: Yes normal visual inspection Chest Chest palpation & inspection: normal palpation of entire chest wall Resp Effort & Inspection: normal respiratory effort Neuro General: patient oriented x3 Assessment and Plan Assessment & Plan (1) Abdominal pain: Code(s): R10.9 - Unspecified abdominal pain Plan: Benign clinical exam. Patient recently had a colonoscopy which was unremarkable. Blood work has been reviewed. Patient was reassured. Coding Level of Care Code Est Pt Level 3 (54037) Diagnoses Abdominal pain R10.9
[2023-07-13 09:53] VITALS: BP 130/68; PULSE 72; O2SAT 99; BMI 28.1
== END 2023-07-13 12:06 | disposition home or self-care (01) ==
PROVIDERS: PCP Internal Medicine; Visit Provider Internal Medicine
DX: R10.9 Unspecified abdominal pain (principal)
CPT/HCPCS: 99213

== ENCOUNTER 2023-09-29 09:52 | Outpatient (REF) | payer OTHER, SELFPAY ==
--- NOTE | ~2023-09-29 | XR_ITS ---
EXAMINATION: XR KNEE, LEFT CLINICAL INFORMATION: Pain. COMPARISON: Radiograph left knee 05/11/2023 and 07/07/2022. TECHNIQUE: 3 views of the left knee. AP standing view of both knees. FINDINGS: Total left knee arthroplasty. Compared to 07/07/2022, there is a new osseous fragment adjacent to the medial femoral condyle of the left knee; this is not well seen on prior from 05/11/2023 as no frontal views were obtained on this latter prior. Mild degenerative osteoarthritis of the medial compartment of the right knee with joint space narrowing on the AP standing view. Recurrent moderate size joint effusions with persistent significant soft tissue swelling in the left knee. XR/XR knee LT 3V IMPRESSION: 1. Compared to 07/07/2022, new osseous fragment adjacent to the medial femoral condyle that could represent an avulsion fracture. Correlate for point tenderness. 2. Recurrent moderate size joint effusions with persistent soft tissue swelling in the left knee.
== END 2023-09-29 09:53 | disposition home or self-care (01) ==
LOC: HO.HOSX 09:52
PROVIDERS: PCP Internal Medicine; Visit Provider Orthopaedic Surgery
DX: M25.562 Pain in left knee (principal); M25.462 Effusion, left knee; R53.1 Weakness; Z96.652 Presence of left artificial knee joint
CPT/HCPCS: 73562; 99212

== ENCOUNTER 2023-09-29 09:52 | Outpatient (AMB) | payer OTHER, SELFPAY ==
--- NOTE | 2023-09-29 11:49 | MHC.OFFVIS ---
Vital Signs 09/29/23 11:50 Height 5 ft 6 in Weight 174 lb BMI 28.1 Intake Visit Reasons: ov Left knee pain and weakness Intake Note: Tobi is a 72 year old male who presents today for a follow up of his Left Knee s/p Left TKA 06/30/2023. Patient reports that he is having continued pain with the knee. He has increased swelling, pain in the lateral and medial aspect and weakness of the knee. Allergies No Known Allergies Allergy (Verified 09/29/23 11:53) HPI HPI ov Left knee pain and weakness: Details: 9 mo s/p left TKA, He is doing OK. Overall he feels better than last visit but still with mild swelling, pain and lateral michelle incisional numbness. He has difficulty with stairs. PFSH Medical History Diabetes mellitus Osteoarthritis of left knee Hypercholesterolemia Hypertension Surgical History History of left knee surgery Hx of appendectomy History of colonoscopy Family History Mother No problems noted. Father No problems noted. Social History Household Members: Spouse Housing: House Are you a primary medical care administrator to a significant other at home: No Do you presently have visiting nurse or other home services: No Alcohol intake: current Alcohol intake frequency: holidays/special occasions only Alcohol type: beer and wine Comment: occasional use Patient Tobacco Use Status: Former Tobacco user Tobacco use type: Cigarette e-Cigarette/Vaping Use: Never Used Second Hand Smoke Exposure: No service: No Current occupational status: retired Cognitive needs: No Hearing needs: No Vision needs: Yes (glasses) Physical Exam Vital Signs: BMI result Body Mass Index 28.1 Extrem Other: inc c/d/i Mild effusion that is improved from prio 0-125 deg motion stable arc of motion no gait antalgia Results Reviewed Results Reviewed: I personally reviewed relevant radiographs. Left total knee arthroplasty in expected post operative position with no hardware complications or evidence of loosening Assessment & Plan Assessment & Plan (1) Status post total knee replacement, left: Comment: 01/17/2023 Dr. Varela Code(s): Z96.652 - Presence of left artificial knee joint Category: Surgical Plan: Slow improvement left knee. There is improvement however and hse is walking well. His quad is still under developed and I think a course of PT would be helpful. He agrees.f/u 3 mo Orders: Orders XR knee LT 3V Today M25.562 - Pain in left knee PT Evaluation and Treatment Today Z96.652 - Presence of left artificial knee joint Coding Level of Care Code Est Pt Level 3 (34077) Diagnoses Status post total knee replacement, left Z96.652
[2023-09-29 11:50] VITALS: BMI 28.1
== END 2023-09-29 12:05 | disposition home or self-care (01) ==
PROVIDERS: PCP Internal Medicine; Visit Provider Orthopaedic Surgery
DX: Z47.89 Encounter for other orthopedic aftercare (principal); Z96.652 Presence of left artificial knee joint
CPT/HCPCS: 99213

== ENCOUNTER 2023-10-31 09:32 | Outpatient (AMB) | payer OTHER, SELFPAY ==
--- NOTE | 2023-10-31 09:45 | A.OFFPC_ITS ---
Vital Signs 10/31/23 09:47 Height 5 ft 6 in Weight 176 lb 6 oz BMI 28.5 BP 130/70 Blood Pressure Location Lt brachial Position Sitting Pulse 71 Pulse Source Pulse Oximeter Pulse Oximetry (%) 98 Oxygen Delivery Method Room Air Intake Visit Reasons: Follow up Intake Note: Patient is here to follow up on DM, HTN. Flash Ranging Crewmember Required: No Net Mobile Developer: Not Required per policy Accompanied by: Self / Same As Patient Allergies No Known Allergies Allergy (Verified 10/31/23 09:46) Tobacco use date assessed: 10/31/23 Fall risk assessment: No Falls in past year Last assessed Fall Risk: 10/31/23 Dental Screening Dental Screen Date: 06/08/23 HPI Follow up HPI Details 72-year-old male presents to the office to discuss his chronic medical conditions. Patient is compliant with medications and reporting no side effects. The diarrhea symptoms from the last office visit has resolved. His bowel movements have become regular. Checks his blood sugars at home regularly. Did not bring in the log. Able to function and do all activities of daily living. [facility] Medical History Diabetes mellitus Osteoarthritis of left knee Hypercholesterolemia Hypertension Surgical History History of left knee surgery Hx of appendectomy History of colonoscopy Family History Mother No problems noted. Father No problems noted. Social History Household Members: Spouse Housing: House Are you a primary healthcare manager to a significant other at home: No Do you presently have visiting nurse or other home services: No Alcohol intake: current Alcohol intake frequency: holidays/special occasions only Alcohol type: beer and wine Comment: occasional use Patient Tobacco Use Status: Former Tobacco user Tobacco use type: Cigarette e-Cigarette/Vaping Use: Never Used Second Hand Smoke Exposure: No service: No Current occupational status: retired Cognitive needs: No Hearing needs: No Vision needs: Yes (glasses) Questionnaire Thrive Questionnaire Date Thrive assessed: 06/08/23 LEVAR-7 AMB Questionnaire LEVAR-7 Date LEVAR - 7 assessed: 02/15/24 Source: Developed by Drs. Kevin Linder, Natividad Johnson, Filemon Flanagan and colleagues, with an educational jaret from [employer]. Physical exam (Primary Care) Vital Signs: Last Vital Signs Pulse 71 10/31/23 09:47 BP 130/70 10/31/23 09:47 Pulse Ox 98 10/31/23 09:47 Oxygen Delivery Method Room Air 10/31/23 09:47 BMI result Body Mass Index 28.5 Tobacco/Smoking Status: Tobacco use Status Tobacco use date assessed 10/31/23 10/31/23 09:58 Patient Tobacco Use Status Former Tobacco user 10/31/23 09:58 Tobacco use type Cigarette 10/31/23 09:58 e-Cigarette/Vaping Use Never Used 10/31/23 09:58 Thrive Assessment: Date of Thrive Assessment Date Thrive assessed 06/08/23 10/31/23 09:58 Const General: cooperative and healthy appearing Nutritional Appearance: well nourished Orientation/consciousness: patient oriented x3 Limitations: no limitations HENMT Head: Yes normal to inspection Eyes General: appearance normal, both eyes and all related structures Neck Neck: Yes normal visual inspection Chest Chest palpation & inspection: normal palpation of entire chest wall Resp Effort & Inspection: normal respiratory effort Neuro General: patient oriented x3 Results AMB Hemoglobin A1c AMB Hemoglobin A1c 6.8 % Last Edit by CARLA Buckley on 10/31/23 10:00 Results Reviewed Results Reviewed: Laboratory Last Values Hgb A1c (Clinic) 6.8 % (4.0-6.0) H 10/31/23 09:45 Assessment and Plan Assessment & Plan (1) Essential hypertension: Code(s): I10 - Essential (primary) hypertension Plan: Blood pressure is in range. Continue current medications. Counseling on the importance of diet and exercise done. Blood work done last time was reviewed. (2) Diabetes mellitus: Code(s): E11.9 - Type 2 diabetes mellitus without complications Plan: A1c is in range. Continue medications at the same dosage. Counseling on the importance of diet and exercise done. Continue medications at the same dosage. Orders: Orders AMB Hemoglobin A1c Today E11.9 - Type 2 diabetes mellitus without compli cations, R73.9 - Hyperglycemia, unspecified Medications: Refilled ibuprofen 600 mg PO Q8H PRN 90 tabs 0RF for pain loperamide (Imodium A-D) 2 mg PO Q6H PRN 7 tabs 0RF loose stool metformin 500 mg PO BID 60 tabs 3RF R73.9 - Hyperglycemia, unspecified naproxen (EC-Naprosyn) 500 mg PO BID PRN 60 tabs 0RF pain aspirin 325 mg PO BID 84 tabs 0RF 42 days losartan 100 mg PO QAM 90 tabs 1RF Coding Level of Care Code Est Pt Level 4 (60359) Complex EM visit Add On G2211 Diagnoses Essential hypertension I10 Diabetes mellitus E11.9
[2023-10-31 09:47] VITALS: BP 130/70; PULSE 71; O2SAT 98; BMI 28.5
== END 2023-10-31 10:28 | disposition home or self-care (01) ==
PROVIDERS: PCP Internal Medicine; Visit Provider Internal Medicine
DX: I10 Essential (primary) hypertension (principal); E11.9 Type 2 diabetes mellitus without complications; R73.9 Hyperglycemia, unspecified
CPT/HCPCS: 83036; 99214; G2211

== ENCOUNTER 2023-12-27 08:09 | Outpatient (AMB) | payer OTHER, SELFPAY ==
[2023-12-27 08:20] VITALS: BP 128/70; PULSE 68; O2SAT 97; BMI 27.9
--- NOTE | 2023-12-27 08:20 | MHC.PC.OV ---
Vital Signs 12/27/23 08:20 Height 5 ft 6 in Weight 173 lb BMI 27.9 BP 128/70 Blood Pressure Location Lt brachial Position Sitting Pulse 68 Pulse Source Pulse Oximeter Pulse Oximetry (%) 97 Oxygen Delivery Method Room Air Intake Visit Reasons: regular visit Allergies No Known Allergies Allergy (Verified 12/27/23 08:50) Medication List - Last Reconciled 12/27/23 by Dylan Shabazz MD amlodipine 20 mg (2 x 10 mg) PO QAM ascorbate calcium (vitamin C) 500 mg PO DAILY aspirin 325 mg PO BID 42 days blood sugar diagnostic ([employer] Ultra Test strips) test once per day blood-glucose meter (Lum[employer] Microuch Ultra2 Meter) test once per day cetirizine (Allergy Relief (cetirizine)) 10 mg PO DAILY PRN cholecalciferol (vitamin D3) 125 mcg PO DAILY famotidine 20 mg PO DAILY 60 days [Hand held shower head As directed] ibuprofen 600 mg PO Q8H PRN lancets (Lum[employer] Microuch UltraSoft 2 Lancet) test once per day loperamide (Imodium A-D) 2 mg PO Q6H PRN losartan 100 mg PO QAM melatonin 10 mg PO BEDTIME PRN metformin 500 mg PO BID multivitamin 1 tab PO DAILY [Raised toilet seat As directed] [SHOWER CHAIR As directed] simvastatin 20 mg PO BEDTIME tadalafil (Cialis) 5 mg PO DAILY walker Folding Front wheeled walker Tobacco use date assessed: 10/31/23 Fall risk assessment: No Falls in past year Last assessed Fall Risk: 12/27/23 Dental Screening Dental Screen Date: 06/08/23 HPI regular visit HPI Details 72-year-old male presents to the office to discuss his chronic medical conditions. Patient is compliant with medications and reporting no side effects. The diarrhea symptoms that he was having in the past office visit has subsided. Occasional lower abdominal pain. Able to function and do all activities of daily living. [facility] Medical History Diabetes mellitus Osteoarthritis of left knee Hypercholesterolemia Hypertension Surgical History (Updated 12/27/23 @ 08:34 by Dylan Shabazz MD) History of left knee surgery Hx of appendectomy History of colonoscopy (~04/2021) Family History Mother No problems noted. Father No problems noted. Social History Household Members: Spouse Housing: House Are you a primary healthcare sales representative to a significant other at home: No Do you presently have visiting nurse or other home services: No Alcohol intake: current Alcohol intake frequency: holidays/special occasions only Alcohol type: beer and wine Comment: occasional use Patient Tobacco Use Status: Former Tobacco user Tobacco use type: Cigarette e-Cigarette/Vaping Use: Never Used Second Hand Smoke Exposure: No service: No Current occupational status: retired Cognitive needs: No Hearing needs: No Vision needs: Yes (glasses) Questionnaire PHQ-9 Over the last 2 weeks, how often have you been bothered by any of the following problems? 1. Little interest or pleasure in doing things: not at all 2. Feeling down, depressed, or hopeless: not at all 3. Trouble falling or staying asleep, or sleeping too much: not at all 4. Feeling tired or having little energy: not at all 5. Poor appetite or overeating: not at all 6. Feeling bad about yourself - or that you are a failure or have let yourself or your family down: not at all 7. Trouble concentrating on things, such as reading the newspaper or watching television: not at all 8. Moving or speaking so slowly that other people could have noticed. Or the opposite - being so fidgety or restless that you have been moving around a lot more than usual: not at all 9. Thoughts that you would be better off or of hurting yourself in some way: not at all Total score: 0 Depression Screening Interpretation: Negative Depression Screening Done: Yes Source: Developed by Drs. Kevin Linder, Natividad Johnson, Filemon Flanagan and colleagues, with an educational jaret from [employer]. Thrive Questionnaire Date Thrive assessed: 06/08/23 AUDIT C Alcohol Use Questionnaire (AUDIT-C) 1. How often do you have a drink containing alcohol?: Never Total Score: 0 LEVAR-7 AMB Questionnaire LEVAR-7 Date LEVAR - 7 assessed: 06/08/23 Source: Developed by Drs. Kevin Linder, Natividad Johnson, Filemon Flanagan and colleagues, with an educational jaret from [employer]. Physical exam (Primary Care) Vital Signs: Last Vital Signs Pulse 68 12/27/23 08:20 BP 128/70 12/27/23 08:20 Pulse Ox 97 12/27/23 08:20 Oxygen Delivery Method Room Air 12/27/23 08:20 Care Plan Goal for BP management: Blood pressure is in range. BMI result Body Mass Index 27.9 Tobacco/Smoking Status: Tobacco use Status Tobacco use date assessed 10/31/23 12/27/23 08:25 Patient Tobacco Use Status Former Tobacco user 12/27/23 08:25 Tobacco use type Cigarette 12/27/23 08:25 e-Cigarette/Vaping Use Never Used 12/27/23 08:25 PHQ-9: PHQ-9 Score PHQ-9: Total score 0 12/27/23 08:25 Depression Screening Interpretation: Negative Thrive Assessment: Date of Thrive Assessment Date Thrive assessed 06/08/23 12/27/23 08:25 Const General: cooperative and healthy appearing Nutritional Appearance: well nourished Orientation/consciousness: patient oriented x3 Limitations: no limitations HENMT Head: Yes normal to inspection Eyes General: appearance normal, both eyes and all related structures Neck Neck: Yes normal visual inspection Chest Chest palpation & inspection: normal palpation of entire chest wall Resp Effort & Inspection: normal respiratory effort Neuro General: patient oriented x3 Assessment and Plan Assessment & Plan (1) Essential hypertension: Code(s): I10 - Essential (primary) hypertension Plan: Blood pressure is in range. Continue current medications. Patient was advised to discontinue the Naprosyn. (2) Diabetes mellitus: Code(s): E11.9 - Type 2 diabetes mellitus without complications Plan: A1c is in range. Continue medications at same dosage. Orders: Orders Basic Metabolic Panel Today E11.9 - Type 2 diabetes mellitus without complications, I10 - Essential (primary) hypertension Lipid Panel Today E11.9 - Type 2 diabetes mellitus without complications, I10 - Essential (primary) hypertension Liver Panel Today E11.9 - Type 2 diabetes mellitus without complications, I10 - Essential (primary) hypertension UA and rflx microscopic Today E11.9 - Type 2 diabetes mellitus without complications, I10 - Essential (primary) hypertension Complete Blood Count no Diff Today E11.9 - Type 2 diabetes mellitus without complications, I10 - Essential (primary) hypertension Thyroid Stimulating Hormone Today E11.9 - Type 2 diabetes mellitus without complications, I10 - Essential (primary) hypertension Coding Level of Care Code Est Pt Level 4 (48612) Complex EM visit Add On G2211 Diagnoses Essential hypertension I10 Diabetes mellitus E11.9
== END 2023-12-27 08:45 | disposition home or self-care (01) ==
PROVIDERS: PCP Internal Medicine; Visit Provider Internal Medicine
DX: I10 Essential (primary) hypertension (principal); E11.9 Type 2 diabetes mellitus without complications
CPT/HCPCS: 99214; G2211

== ENCOUNTER 2023-12-27 08:49 | Outpatient (REF) | payer OTHER, SELFPAY ==
[2023-12-27 09:28] LABS: Hematocrit 38.4 % (42.0-52.0); Hemoglobin 13.4 g/dl (14.0-18.0); Mean Corpuscular HGB Conc 34.9 g/dl (31.0-36.0); Mean Corpuscular Hemoglobin 30.2 pg (27.0-33.0); Mean Corpuscular Volume 86.5 fL (80.0-98.0); Mean Platelet Volume 8.6 fL (9.4-12.4); Platelet Count 310 X10*3/uL (160-400); Red Blood Count 4.44 X10*6/uL (4.60-5.80); Red Cell Distribution Width 13.8 % (11.0-16.0); White Blood Count 4.7 X10*3/uL (4.8-10.8)
[2023-12-27 10:13] LABS: Alanine Aminotransferase 20 U/L (0-40); Albumin Level 4.4 g/dL (3.5-5.0); Alkaline Phosphatase 61 U/L (39-117); Anion Gap 17 (12-20); Aspartate Amino Transferase 12 U/L (5-37); Bilirubin Direct 0.2 mg/dL (0.0-0.5); Bilirubin Total 0.6 mg/dL (0.0-1.0); Blood Urea Nitrogen 11 mg/dL (9-16); Calcium 9.3 mg/dL (8.4-10.2); Carbon Dioxide 24 mmol/L (22-29); Chloride 106 mmol/L (96-108); Cholesterol 193 mg/dL (<200); Estimated Glomerular Filt Rate > 60; Glucose Random 128 mg/dL (60-115); HDL Cholesterol 35 mg/dL (>40); LDL Cholesterol Calculated 80 mg/dL (<100); Potassium 3.2 mmol/L (3.3-5.1); Sodium 144 mmol/L (135-145); Total Protein 7.6 g/dL (6.5-8.0); Triglycerides 394 mg/dL (<150)
[2023-12-27 10:20] LABS: Thyroid Stimulating Hormone 2.02 uIU/mL (0.32-4.0)
[2023-12-27 10:35] LABS: Appearance Urine Turbid; Color Urine Yellow; Glucose Urine UA Negative (Negative); Leukocyte Esterase Urine Negative (Negative); Nitrite Urine Negative (Negative); Specific Gravity - Urine >= 1.030 (1.005-1.025); Urine Blood Negative (Negative); Urine Ketones Trace mg/dL (Negative); Urine Protein Negative (Neg-Trace)
== END 2023-12-27 08:50 | disposition home or self-care (01) ==
LOC: HO.LAB 08:49
PROVIDERS: PCP Internal Medicine; Visit Provider Internal Medicine
DX: E11.9 Type 2 diabetes mellitus without complications (principal); I10 Essential (primary) hypertension
CPT/HCPCS: 36415; 80048; 80061; 80076; 81003; 84443; 85027

== ENCOUNTER 2024-01-01 09:18 | Outpatient (AMB) | payer OTHER, SELFPAY ==
--- NOTE | 2024-01-01 09:22 | MHC.OFFVIS ---
Vital Signs 01/01/24 09:23 Height 5 ft 6 in Weight 173 lb BMI 27.9 Intake Visit Reasons: OV-Left knee pain and weakness-F/U Intake Note: Tobi is a 72 year old male who presents today for a follow up of his Left Knee s/p Left TKA 06/30/2023. Patient reports he would like his left knee evaluated today to make sure everything is okay . He also brought a placard form for renewal. Allergies No Known Allergies Allergy (Verified 01/01/24 09:24) HPI HPI OV-Left knee pain and weakness-F/U: Details: Tobi is a 72 year old male who presents today for a follow up of his Left Knee s/p Left TKA 06/30/2023. He states he is doing pretty well actually. Better than he has in the past. He feels like his knee has been steadily improving. [facility] Medical History Diabetes mellitus Osteoarthritis of left knee Hypercholesterolemia Hypertension Surgical History (Updated 12/27/23 @ 08:34 by Dylan Shabazz MD) History of left knee surgery Hx of appendectomy History of colonoscopy (~04/2021) Family History Mother No problems noted. Father No problems noted. Social History Household Members: Spouse Housing: House Are you a primary critical care unit nurse to a significant other at home: No Do you presently have visiting nurse or other home services: No Alcohol intake: current Alcohol intake frequency: holidays/special occasions only Alcohol type: beer and wine Comment: occasional use Patient Tobacco Use Status: Former Tobacco user Tobacco use type: Cigarette e-Cigarette/Vaping Use: Never Used Second Hand Smoke Exposure: No service: No Current occupational status: retired Cognitive needs: No Hearing needs: No Vision needs: Yes (glasses) Physical Exam Vital Signs: BMI result Body Mass Index 27.9 Extrem Other: 0-125 degrees of motion. No effusion. Mild left quad atrophy compared to the right Assessment & Plan Assessment & Plan (1) Status post total knee replacement, left: Comment: 01/17/2023 Dr. Varela Code(s): Z96.652 - Presence of left artificial knee joint Category: Surgical Plan: One year status post left knee arthroplasty doing well. I recommend he engage in strengthening activities such as stationary bike and leg press activities. He can follow up in 1 year as needed. Coding Level of Care Code Est Pt Level 3 (38167) Diagnoses Status post total knee replacement, left Z96.652
[2024-01-01 09:23] VITALS: BMI 27.9
== END 2024-01-01 10:10 | disposition home or self-care (01) ==
PROVIDERS: PCP Internal Medicine; Visit Provider Orthopaedic Surgery
DX: Z47.1 Aftercare following joint replacement surgery (principal); Z96.652 Presence of left artificial knee joint
CPT/HCPCS: 99212

== ENCOUNTER → 2024-01-01 09:18 | Outpatient (BNVA) | payer OTHER, SELFPAY | PROVIDERS: PCP Internal Medicine; Visit Provider Orthopaedic Surgery | DX: M25.562 Pain in left knee (principal); M62.562 Muscle wasting and atrophy, not elsewhere classified, left lower leg; Z96.652 Presence of left artificial knee joint | CPT/HCPCS: 99212 ==

== ENCOUNTER → 2024-02-22 09:15 | Outpatient (BNVA) | payer OTHER, SELFPAY | PROVIDERS: PCP Internal Medicine; Visit Provider Internal Medicine Gastroenterology ==

== ENCOUNTER 2024-03-18 11:43 | Outpatient (AMB) | payer OTHER, SELFPAY ==
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
[2024-03-18 12:12] VITALS: BMI 28.4
== END 2024-03-18 12:38 | disposition home or self-care (01) ==
PROVIDERS: PCP Internal Medicine; Visit Provider Orthopaedic Surgery
DX: Z47.1 Aftercare following joint replacement surgery (principal); Z96.652 Presence of left artificial knee joint
CPT/HCPCS: 99212

== ENCOUNTER → 2024-03-18 11:43 | Outpatient (BNVA) | payer OTHER, SELFPAY | PROVIDERS: PCP Internal Medicine; Visit Provider Orthopaedic Surgery | DX: Z47.1 Aftercare following joint replacement surgery (principal); Z96.652 Presence of left artificial knee joint | CPT/HCPCS: 99212 ==

== ENCOUNTER 2024-05-02 08:12 | Outpatient (AMB) | payer OTHER, SELFPAY ==
--- NOTE | 2024-05-02 08:36 | MHC.PC.OV ---
Vital Signs 05/02/24 08:38 Height 5 ft 6 in Weight 172 lb 8 oz BMI 27.8 BP 130/76 Blood Pressure Location Rt brachial Position Sitting Pulse 83 Pulse Source Pulse Oximeter Pulse Oximetry (%) 98 Oxygen Delivery Method Room Air Intake Visit Reasons: 6 Month F/U Intake Note: Patient is here to follow up on DM, HTN. Complaint of back pain on going for almost a month. Weblogic Administrator Required: No Die Stamper: Not Required per policy Accompanied by: Self / Same As Patient Allergies No Known Allergies Allergy (Verified 05/02/24 09:27) Medication List - Last Reconciled 05/02/24 by Dylan Shabazz MD amlodipine 20 mg (2 x 10 mg) PO QAM ascorbate calcium (vitamin C) 500 mg PO DAILY aspirin 325 mg PO BID 42 days blood sugar diagnostic ([employer] Ultra Test strips) test once per day blood-glucose meter ([employer] Ultra2 Meter) test once per day cetirizine (Allergy Relief (cetirizine)) 10 mg PO DAILY PRN cholecalciferol (vitamin D3) 125 mcg PO DAILY cyclobenzaprine 10 mg PO BEDTIME famotidine 20 mg PO DAILY [Hand held shower head As directed] lancets ([employer] UltraSoft 2 Lancet) test once per day loperamide (Imodium A-D) 2 mg PO Q6H PRN losartan 100 mg PO QAM melatonin 10 mg PO BEDTIME PRN meloxicam 15 mg PO DAILY metformin 500 mg PO BID multivitamin 1 tab PO DAILY psyllium husk 1 tbsp PO DAILY 30 days [Raised toilet seat As directed] [SHOWER CHAIR As directed] simvastatin 20 mg PO BEDTIME tadalafil (Cialis) 5 mg PO DAILY walker Folding Front wheeled walker Tobacco use date assessed: 05/02/24 Fall risk assessment: No Falls in past year Last assessed Fall Risk: 05/02/24 Dental Screening Dental Screen Date: 05/02/24 Did you have a dental visit in the last 12 months?: Yes Did you have a dental problem in the last 6 months where you did not have access to dental care?: No Was dental information given to patient?: Patient has dentist [facility] Medical History (Updated 02/22/24 @ 10:04 by Destin Vaughn MD) Diabetes mellitus Osteoarthritis of left knee Hypercholesterolemia Hypertension Surgical History (Updated 05/02/24 @ 09:29 by Dylan Shabazz MD) History of left knee surgery Hx of appendectomy History of colonoscopy (~04/30/21) Family History Mother No problems noted. Father No problems noted. Social History Household Members: Spouse Housing: House Are you a primary career technology teacher to a significant other at home: No Do you presently have visiting nurse or other home services: No Alcohol intake: current Alcohol intake frequency: holidays/special occasions only Alcohol type: beer and wine Comment: occasional use Patient Tobacco Use Status: Former Tobacco user Tobacco use type: Cigarette e-Cigarette/Vaping Use: Never Used Second Hand Smoke Exposure: No service: No Current occupational status: retired Cognitive needs: No Hearing needs: No Vision needs: Yes (glasses) Questionnaire PHQ-9 Over the last 2 weeks, how often have you been bothered by any of the following problems? 1. Little interest or pleasure in doing things: not at all 2. Feeling down, depressed, or hopeless: not at all 3. Trouble falling or staying asleep, or sleeping too much: not at all 4. Feeling tired or having little energy: not at all 5. Poor appetite or overeating: not at all 6. Feeling bad about yourself - or that you are a failure or have let yourself or your family down: not at all 7. Trouble concentrating on things, such as reading the newspaper or watching television: not at all 8. Moving or speaking so slowly that other people could have noticed. Or the opposite - being so fidgety or restless that you have been moving around a lot more than usual: not at all 9. Thoughts that you would be better off or of hurting yourself in some way: not at all Total score: 0 Depression Screening Interpretation: Negative Depression Screening Done: Yes Source: Developed by Drs. Kevin Linder, Natividad Johnson, Filemon Flanagan and colleagues, with an educational jaret from [email or web address]. Thrive Questionnaire Date Thrive assessed: 05/02/24 I am a: Patient What is your living situation today?: I have a steady place to live Within the past 12 months, did the food you bought not last and you didn't have the money to get more?: Never true Within the past 12 months, did you worry whether your food would run out before you got money to buy more?: Never true Do you have trouble paying for medicines?: No Do you have trouble getting transportation to medical appointments?: No Do you have trouble paying your heating and electricity bill?: No Do you have trouble taking care of your child, family member or friend?: No Do you have trouble with day-to-day activities such as bathing, preparing meals, shopping, managing finances, etc.?: No Are you currently unemployed and looking for a job?: No Are you interested in more education?: No Please select the resources that you would like help with: None Currently or been in a relationship where the following occur: No concerns reported THRIVE Score: 0 AUDIT C Alcohol Use Questionnaire (AUDIT-C) 1. How often do you have a drink containing alcohol?: Never Total Score: 0 LEVAR-7 AMB Questionnaire LEVAR-7 Date LEVAR - 7 assessed: 05/02/24 Feeling nervous, anxious, or on edge: 0 = Not at all Not being able to stop or control worryin = Not at all Worrying too much about different things: 0 = Not at all Trouble relaxin = Not at all Being so restless that it is hard to sit still: 0 = Not at all Becoming easily annoyed or irritable: 0 = Not at all Feeling afraid as if something awful might happen: 0 = Not at all Total LEVAR-7 score (0-4 normal; 5-9 mild; 10-14 moderate; 15-21 severe): 0 Source: Developed by Drs. Kevin Linder, Natividad Johnson, Filemon Flanagan and colleagues, with an educational jaret from [email or web address]. Physical exam (Primary Care) Vital Signs: Last Vital Signs Pulse 83 05/02/24 08:38 BP 130/76 05/02/24 08:38 Pulse Ox 98 05/02/24 08:38 Oxygen Delivery Method Room Air 05/02/24 08:38 BMI result Body Mass Index 27.8 Tobacco/Smoking Status: Tobacco use Status Tobacco use date assessed 05/02/24 05/02/24 08:48 Patient Tobacco Use Status Former Tobacco user 05/02/24 08:48 Tobacco use type Cigarette 05/02/24 08:48 e-Cigarette/Vaping Use Never Used 05/02/24 08:48 PHQ-9: PHQ-9 Score PHQ-9: Total score 0 05/02/24 08:48 Depression Screening Interpretation: Negative Thrive Assessment: Date of Thrive Assessment Date Thrive assessed 05/02/24 05/02/24 08:48 Currently or been in a relationship where the following occur: No concerns reported Results AMB Hemoglobin A1c AMB Hemoglobin A1c 6.5 % Last Edit by CARLA Buckley on 05/02/24 08:51 Results Reviewed Results Reviewed: Laboratory Last Values Hgb A1c (Clinic) 6.5 % (4.0-6.0) H 05/02/24 08:36 Coding Level of Care Code Est Pt Level 4 (36345) Complex EM visit Add On G2211 Diagnoses Essential hypertension I10 Diabetes mellitus E11.9 Low back pain M54.50 Assessment & Plan Assessment & Plan (1) Essential hypertension: Code(s): I10 - Essential (primary) hypertension Category: Medical Plan: BP in range. Continue medications at same dosage. (2) Diabetes mellitus: Code(s): E11.9 - Type 2 diabetes mellitus without complications Category: Medical Plan: A1c is in range. Continue meds at same dosage. (3) Low back pain: Code(s): M54.50 - Low back pain, unspecified Plan: Meloxicam and Cyclobenzaprine called in. Stretching exercises suggested. Plan History of Present Illness The patient is a 73-year-old male presenting with back pain and reduced appetite. The back pain appears recent, starting following a possible strain the patient suspects. No specific incidence or trauma was explicitly detailed, but the patient mentioned that he believes the pain is due to a sprain. There is no mention of previous episodes of similar pain or current treatments being used to manage it. Alongside the back pain, the patient reports a diminished appetite. No associated symptoms such as weight loss or gastrointestinal distress were noted in relation to the appetite issue. The patient seeks a recommendation for vitamins to manage the reduced appetite, indicating an interest in multivitamin supplementation. Social History - The patient is multilingual and communicates fluently in different languages. - He reports a plan to travel to [facility], indicating regular international travel. - The patient is independent, handling his own shopping and banking responsibilities. - There is an indication of applying for food assistance (food stamps) as per a document mentioned, suggesting economic considerations. Review of Systems - Musculoskeletal: Reports back pain. - General: Reports reduced appetite. - Neurological: Reports occasional sleep disturbances; uses melatonin for aiding sleep. - Vision: Denies visual disturbances such as halos or sensitivity to bright lights at night. Physical Exam General: Appearance normal, both eyes and all related structures Nutritional Appearance: Well nourished, but reports lack of appetite Orientation/consciousness: Patient oriented x3 Limitations: No limitations Head: Normal to inspection Neck: Normal visual inspection Chest: Normal palpation of entire chest wall Respiratory: Normal respiratory effort Neurology: Patient oriented x3 Results Plan - For back pain: Prescribe muscle relaxants and anti-inflammatory medication to manage pain and inflammation. - For reduced appetite: Recommend [id number] multivitamin supplements to support nutritional intake. - Continue current management and medications with periodic reassessment of symptoms. Patient was informed and verbally consented to the use of an ambient scribe for clinic note documentation during this visit. Discussion Notes During the visit, I discussed the patient's back pain, which is suspected to be due to a recent muscular strain. Muscle relaxants and anti-inflammatory medications were recommended to alleviate pain. For his reduced appetite, I recommended the use of multivitamins available over the counter. We discussed options and the patient was agreeable to these recommendations. I confirmed that the patient has received his flu vaccination and continues to drive independently without difficulties such as impaired night vision. Patient Instructions - Take prescribed muscle relaxants and anti-inflammatory medications as recommended for back pain. - Purchase and take an [id number] multivitamin to improve nutritional intake. - Continue current lifestyle activities, including driving, while monitoring any possible symptoms. Orders: Orders AMB Hemoglobin A1c Today E11.9 - Type 2 diabetes mellitus without complications Medications: New meloxicam 15 mg PO DAILY 14 tabs 0RF cyclobenzaprine 10 mg PO BEDTIME 14 tabs 0RF Refilled amlodipine 20 mg (2 x 10 mg) PO QAM 180 tabs 1RF loperamide (Imodium A-D) 2 mg PO Q6H PRN 7 tabs 0RF loose stool metformin 500 mg PO BID 60 tabs 1RF R73.9 - Hyperglycemia, unspecified simvastatin 20 mg PO BEDTIME 90 tabs 1RF blood sugar diagnostic (OneTouch Ultra Test strips) test once per day 100 ea 4RF R73.9 - Hyperglycemia, unspecified lancets (OneTouch UltraSoft 2 Lancet) test once per day 100 ea 4RF R73.9 - Hyperglycemia, unspecified
[2024-05-02 08:38] VITALS: BP 130/76; PULSE 83; O2SAT 98; BMI 27.8
== END 2024-05-02 09:38 | disposition home or self-care (01) ==
PROVIDERS: PCP Internal Medicine; Visit Provider Internal Medicine
DX: I10 Essential (primary) hypertension (principal); E11.9 Type 2 diabetes mellitus without complications; M54.50 Low back pain, unspecified

== ENCOUNTER → 2024-05-02 08:12 | Outpatient (BNVA) | payer OTHER, SELFPAY | PROVIDERS: PCP Internal Medicine; Visit Provider Internal Medicine | DX: I10 Essential (primary) hypertension (principal); M54.50 Low back pain, unspecified; E11.65 Type 2 diabetes mellitus with hyperglycemia | CPT/HCPCS: 83036; 96127; 99212 ==

== ENCOUNTER 2024-06-27 09:10 | Outpatient (AMB) | payer OTHER, SELFPAY ==
--- NOTE | 2024-06-27 09:13 | A.OFFVIS_ITS ---
Vital Signs 06/27/24 09:18 06/27/24 09:43 Height 5 ft 6 in Weight 174 lb BMI 28.1 BP 143/73 H 133/68 Blood Pressure Location Lt brachial Lt brachial Position Sitting Sitting Pulse 82 Pulse Oximetry (%) 98 Oxygen Delivery Method Room Air Intake Visit Reasons: 4 month follow up Intake Note: Patient 4 month follow up for Chronic constipation Patient cc: GERD and some diarrhea on and off, Denies any other GI issues. Applied Technologist Required: No Accompanied by: Self / Same As Patient Allergies No Known Allergies Allergy (Verified 06/27/24 09:16) Medication List - Last Reconciled 06/27/24 by Destin Vaughn MD amlodipine 20 mg (2 x 10 mg) PO QAM ascorbate calcium (vitamin C) 500 mg PO DAILY aspirin 325 mg PO BID 42 days blood sugar diagnostic ([employer] Ultra Test strips) test once per day blood-glucose meter ([employer]go Ultra2 Meter) test once per day cetirizine (Allergy Relief (cetirizine)) 10 mg PO DAILY PRN cholecalciferol (vitamin D3) 125 mcg PO DAILY cyclobenzaprine 10 mg PO BEDTIME famotidine 20 mg PO DAILY [Hand held shower head As directed] lancets ([employer] UltraSoft 2 Lancet) test once per day losartan 100 mg PO QAM melatonin 10 mg PO BEDTIME PRN meloxicam 15 mg PO DAILY metformin 500 mg PO BID multivitamin 1 tab PO DAILY psyllium husk 1 tbsp PO DAILY 30 days [Raised toilet seat As directed] [SHOWER CHAIR As directed] simvastatin 20 mg PO BEDTIME tadalafil (Cialis) 5 mg PO DAILY walker Folding Front wheeled walker HPI HPI 4 month follow up: Details: GI clinic visit for this 73 year old male (from [place]) for fu of colon polyps. Review [facility]S [facility]ISIT: Patient cc: GERD and some diarrhea on and off. Continues to have intermittent constipation and has a BM every 2-3 days Stool is not hard - soft to loose stools. Complains of decreased appetite without wt loss (negative EGD a year ago) PAST VISITS: Intermittent 3/10 lower abdominal pain and loose stools for a long time. Sometimes it can take a long time to have a BM Pain improves after he has a BM. Usually has a BM 1-2 times a week and stool are loose and not hard. Can feel bloated and gassy intermittently Patient follow up for Anemia and lab results. Patient no appetite denies any other GI issues. Pt complains of poor appetite and does not feel hungry. Takes a cup of coffee in the morning and does not feel like eating the rest of the day. Diagnosed with DM recently. Had left knee replacement on 01/17/23. Patient denies symptoms of heartburn, dysphagia, nausea, vomiting, change in appetite or weight. Denies recent change in bowel habits, constipation, diarrhea, black stools or rectal bleeding. Pt has one BM daily Pt denies smoking and takes one bottle of beer occasionally Patient complains of intermittent snoring and denies major cardiac or pulmonary problems, sleep apnea Denies problems with anesthesia in the past. Denies being on chronic anticoagulation. Patient denies known family history of colon polyps, colon cancer or other GI malignancies. 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 He has 10 adult children (some are working in [facility] - his home country, after finishing University education) ENDOSCOPIC STUDIES: 05/05/23 EGD AND COLON SHOWED: Endoscopy Findings: ESOPHAGUS: small hiatal hernia STOMACH: minimal antral gastritis Colonoscopy Findings: No polyps were detected. Polypectomy site visualized at 30 cms and no recurrent polyp was seen. Moderate diverticulosis seen in the sigmoid colon Moderate hemorrhoids on retroflexed exam. Plan: Repeat Colonoscopy in 5 years (due to a hx of adenomatous colon polyps). 04/30/21 COLONOSCOPY SHOWED: Sigmoid Colon:? A 2-3 mm sessile polyp removed with a cold biopsy. A 2 to 2.5 cms pedunculated polyp at 30 cms removed with a hot snare.? Polypectomy site was marked by adrienne ink (submucosal injection). Rectum:? Normal Ano-rectum:? Moderate internal hemorrhoids Colon preparation:? Good? Impression and Post Procedure Diagnosis: Colonoscopy Findings: One medium sized and one small polyps removed Moderate hemorrhoids on retroflexed exam. Plan: Repeat Colonoscopy interval based on path results - in 2 years if polyps are adenomatous to check polypectomy site in the sigmoid colon and 10 years if polyps are hyperplastic. (Adult colonoscope for future colonoscopies). Biopsies showed: Colon, sigmoid at 30 cm, polyp: Tubular adenomas, three; negative for high-grade dysplasia and carcinoma [facility] Medical History (Updated 02/22/24 @ 10:04 by Destin Vaughn MD) Diabetes mellitus Osteoarthritis of left knee Hypercholesterolemia Hypertension Surgical History History of left knee surgery Hx of appendectomy History of colonoscopy (~04/30/21) Family History Mother No problems noted. Father No problems noted. Social History Household Members: Spouse Housing: House Are you a primary patient care provider to a significant other at home: No Do you presently have visiting nurse or other home services: No Alcohol intake: current Alcohol intake frequency: holidays/special occasions only Alcohol type: beer and wine Comment: occasional use Patient Tobacco Use Status: Former Tobacco user Tobacco use type: Cigarette e-Cigarette/Vaping Use: Never Used Second Hand Smoke Exposure: No service: No Current occupational status: retired Cognitive needs: No Hearing needs: No Vision needs: Yes (glasses) Review of Systems Const All systems reviewed & are unremarkable except as noted in HPI and below Physical Exam Vital Signs: Last Vital Signs Pulse 82 06/27/24 09:18 BP 143/73 H 06/27/24 09:18 Pulse Ox 98 06/27/24 09:18 Oxygen Delivery Method Room Air 06/27/24 09:18 BMI result Body Mass Index 28.1 Const General: healthy appearing and no acute distress Nutritional Appearance: average body habitus Orientation/consciousness: patient oriented x3 Limitations: no limitations HEENT Head: Yes normal to inspection Ears: hearing grossly normal bilaterally Mouth: Normal oral and palatal mucosa present Eyes Sclerae: sclerae normal Pupils: Equal, round and reactive pupils present Neck Neck: Yes normal visual inspection Chest Chest palpation & inspection: normal inspection of the chest Resp Effort & Inspection: normal respiratory effort Auscultation: clear to auscultation bilaterally Cardio Palpation: normal PMI Rate: regular rate Rhythm: regular rhythm Heart sounds: S1 normal heart sound present, S2 normal heart sound present and no murmurs GI Palpation (GI): Soft to palpation, nontender and No hepatosplenomegaly present Auscultation: normal bowel sounds Rectal Exam - Male: Yes deferred Skin General skin exam: no rashes or lesions noted Neuro General: patient oriented x3, gait normal and moves all extremities Cranial nerves: Yes Equal, round and reactive pupils present Psych Appearance: grossly normal Mental Status: mental status grossly normal Assessment & Plan Assessment & Plan (1) Loss of appetite: Code(s): R63.0 - Anorexia Category: Medical (2) History of colon polyps: Comment: Pt had a colonoscopy in Apr, 2021 and one medium sized and one small polyps were removed Repeat Colonoscopy was advised in 2 years to check polypectomy site in the sigmoid colon - scheduled on 05/05/23. Code(s): Z86.010 - Personal history of colon polyps Category: Medical (3) Decreased appetite: Code(s): R63.0 - Anorexia Category: Medical (4) Chronic constipation: Code(s): K59.09 - Other constipation Category: Medical Plan 73 YM (from [place]) with a history of colon polyps. Review of labs showed anemia, iron studies suggestive of anemia of chronic disease Pt had a colonoscopy in Apr, 2021 and one medium sized and one small polyps were removed Repeat Colonoscopy was advised in 2 years to check polypectomy site in the sigmoid colon - scheduled on 05/05/23. (Adult colonoscope for future colonoscopies). Biopsies showed: Colon, sigmoid at 30 cm, polyp: Tubular adenomas, three; negative for high-grade dysplasia and carcinoma Patient was advised to have lab tests for evaluation of anemia. 05/05/23 EGD and colonoscopy was performed and results as noted above 06/08/23 Pt complains of poor appetite and does not feel hungry. Takes a cup of coffee in the morning and does not feel like eating the rest of the day. Wt has been stable over the past year Pt was advised to start Famotidine 20 mg daily 02/22/24 Intermittent 3/10 lower abdominal pain and loose stools for a long time. Sometimes it can take a long time to have a BM Pain improves after he has a BM. Usually has a BM 1-2 times a week and stool are loose and not hard. Can feel bloated and gassy intermittently Pt advised to start taking Psyllium Husk 1-2 times daily for constipation 06/27/24 Pt advised to start Senna with a stool softener for constipation He is not taking the psyllium powder at present. FU in 6 months Medications: New sennosides-docusate sodium 8.6-50 mg (Senna with Docusate Sodium) Please take daily or every other day at bedtime for constipation 1 tab-cap PO BEDTIME 60 days 60 tabs 2RF Coding Level of Care Code Est Pt Level 3 (40193) Diagnoses Loss of appetite R63.0 History of colon polyps Z86.010 Decreased appetite R63.0 Chronic constipation K59.09 Time Spent (min) 18
[2024-06-27 09:18] VITALS: BP 143/73; PULSE 82; O2SAT 98; BMI 28.1
[2024-06-27 09:43] VITALS: BP 133/68
--- OUTSIDE RECORDS SUMMARY | 2024-06-27 10:09 | XMS_ITS | Clinical Summary ---
Author Organization [facility] Address [address] [place] [address] Care Team Providers Care Field Health Officer Name Role Phone Dylan Shabazz MD Primary Care Provider [phone] Allergies No known active allergies Medications amLODIPine Besylate (NORVASC) 10 MG tablet Take 10 mg by mouth 1 (one) time each day 10/28/2019 Active Docusate Sodium (COLACE) 100 MG capsule TAKE 1 CAPSULE BY MOUTH EVERY DAY NEEDED 10/03/2019 Active Levothyroxine Sodium (SYNTHROID, LEVOTHROID) 75 MCG tablet TAKE 1 TABLET BY MOUTH EVERY DAY ON EMPTY STOMACH IN THE MORNING 10/28/2019 Active LORazepam (ATIVAN) 1 MG tablet Take 1 mg by mouth at night if needed AT BEDTIME 01/16/2019 Active Losartan Potassium (COZAAR) 100 MG tablet TAKE 1 TABLET BY MOUTH EVERY DAY ONCE A DAY 08/09/2019 Active Simvastatin (ZOCOR) 20 MG tablet Take 20 mg by mouth 1 (one) time each day 10/28/2019 Active Spironolactone (ALDACTONE) 25 MG tablet Take 25 mg by mouth 1 (one) time each day 10/30/2019 Active traZODone HCl (DESYREL) 100 MG tablet TAKE 1 TABLET BY MOUTH EVERYDAY AT BEDTIME 09/30/2019 Active GaviLyte-G 236 g solution use as directed 06/11/2019 Active Active Problems Problem Noted Date Diagnosed Date Hypertension 11/14/2019 Hypothyroidism 11/14/2019 Hyperlipidemia 11/14/2019 Constipation 11/14/2019 Insomnia 11/14/2019 Immunizations Name Administration Dates Next Due COVID-19, mRNA (Pfizer Pre F 2022) Monovalent, 30 mcg/0.3 ml 04/26/2021 Covid-19, mRNA (Pfizer Pre F 2022) Bivalent, 30 mcg/0.3 ml santana-sucrose (12+) dose 02/10/2022 Influenza,high dose seasonal,trivalent,PF (Fluzo ne HD) 01/22/2019 Influenza,high-dose, Quadrivalent 02/02/2022 Influenza,injectable,quad,Prsrv Fr 04/07/2021 Tdap 02/10/2022 Social History Tobacco Use Types Packs/Day Years Used Date Smoking Tobacco: Never Assessed Intimate Partner Violence Answer Date R ecorded Fear of Current or Ex-Partner Not on file Emotionally Abused Not on file 12/06/2022 Physically Abused Not on file 12/06/2022 Sexually Abused Not on file 12/06/2022 Feel Safe at Home Not on file 12/06/2022 Sex and Gender Information Value Date Recorded Sex Assigned at Not on file Legal Sex Male 10:31 AM EDT Gender Identity Not on file Sexual Orientation Not on file Last Filed Vital Signs Vital Sign Reading Time Taken Comments Blood Pressure 162/100 02/25/2022 10:48 AM EDT Pulse 90 02/25/2022 10:48 AM EDT Temperature - - Respiratory Rate - - Oxygen Saturation 99% 02/25/2022 10:48 AM EDT Inhaled Oxygen Concentration - - Weight 75.3 kg (166 lb) 02/25/2022 10:48 AM EDT Height 162 cm (5' 3.78 ) 02/25/2022 10:48 AM EDT Body Mass Index 28.69 02/25/2022 10:48 AM EDT Plan of Treatment Health Maintenance Due Date Last Done Comments Hepatitis C Screening 1952 Colon Cancer Screening 1997 Pneumococcal 50+ years (1 of 1 - PCV) 2002 Zoster (Shingrix) (1 of 2) 2002 COVID-19 Vaccine (3 - 2023-2 5 season) 2023 02/10/2022, 04/26/2021 Influenza (#1) 2023 02/02/2022, 04/07/2021, 01/22/2019 RSV (1 - 1-dose 75+ series) 12/30/2027 DTaP/Tdap/Td (2 - Td or Tdap) 02/11/2032 02/10/2022 Abdominal Aorta Imaging Discontinued HPV Vaccine Aged Out No longer eligi ble based on patient's age to complete this topic Hep A Aged Out No longer eligi ble based on patient's age to complete this topic Hep B Aged Out No longer eligi ble based on patient's age to complete this topic Hib Aged Out No longer eligi ble based on patient's age to complete this topic Meningococcal ACWY Aged Out No longer eligible based on patient's age to complete this topic Zoster (Zostavax) Discontinued Insurance [facility] FFS [employer] Care Teams Field Health Officer Relationship Specialty Start Date End Date Dylan Shabazz MD [address] [place] [address] PCP - General Internal Medicine 11/14/19
--- OUTSIDE RECORDS SUMMARY | 2024-06-27 10:10 | XMS_ITS | Referral Summary ---
Author Organization [facility] Address [address] [place] [address] Care Team Providers Care Paper Coating Machine Operator Name Role Phone Dylan Shabazz Primary Care Provider [phone] Allergies No known active allergies Medications amLODIPine (NORVASC) 10 mg tablet Take 10 mg by mouth once a day. 11/05/2021 Active simvastatin (ZOCOR) 20 mg tablet Take 20 mg by mouth nightly. 11/05/2021 Active ibuprofen (MOTRIN) 600 mg tablet Take 1 tablet (600 mg total) by mouth every 6 hours as needed for pain for up to 20 doses. 20 tablet 12/04/2021 Active acetaminophen (TYLENOL) 325 mg tablet Take 2 tablets (650 mg total) by mouth every 6 hours as needed for pain. 30 tablet 12/04/2021 Active losartan (COZAAR) 100 mg tablet Take 100 mg by mouth once a day. Active cetirizine (ZyrTEC) 10 mg tablet Take 10 mg by mouth once a day. Active multivit with calcium,iron,mi n (DAILY VITAMIN WITH IRON AND CA ORAL) Take 1 1 DS tablet by mouth once. Active melatonin 3 mg tablet Take 10 mg by mouth nightly. Active atovaquone-prog uaniL (MALARONE) 250-100 mg Take 1 tablet by mouth once a day. Begin 2 days prior to trip and continue 7 days after return. 49 tablet 11/16/2022 Active Active Problems No known active problems Immunizations Immunization Administration Dates Next Due Hepatitis A Vaccine, Adult Dosage 05/18/2023, Influenza, High Dose Seasonal, Preservative Free 01/22/2019 Influenza, High Dose Seasonal, Quadrivalent PF 0 01/09/2023,02/02/2022 Influenza, Injectable, Quadrivalent, Preservativ e Free 04/07/2021 Pneumococcal conjugate PCV20 ,polysaccharide [id number] conjugate, adjuvant, PF (Prevnar 20) 09/23/2022 Poliovirus Vaccine, Inactivated 11/14/2022 RSV vaccine, recombinant, pr otein subunit RSVpreF, adjuvant reconstituted, 0.5 mL, PF 02/09/2023 Tetanus Toxoid, Reduced Diph theria Toxoid, and Acellular Pertussis Vaccine, Adsorbed 02/10/2022 Tetanus and Diphtheria Toxoi ds, Adsorbed, Preservative Free, for Adult Use (5 Lf of Tetanus Toxoid and 2 Lf of Diphtheria Toxoid) 02/21/2024 Typhoid Vi Capsular Polysaccharide Vaccine 11/14 Zoster Vaccine Recombinant 10/07/2022 Social History Tobacco Use Types Packs/Day Years Used Date Smoking Tobacco: Never Tobacco Cessation:Counseling Given: Not Answered Alcohol Use Standard Drinks/Week Comments Not Currently 0 (1 standard drink = 0.6 oz pur e alcohol) Sex and Gender Information Value Date Recorded Sex Assigned at Male 03/23/2023 10:38 AM EST Legal Sex Male 4:17 PM EDT Gender Identity Not on file Sexual Orientation Not on file Last Filed Vital Signs Vital Sign Reading Time Taken Comments Blood Pressure 140/71 02/21/2024 7:26 PM EDT Pulse 63 02/21/2024 7:26 PM EDT Temperature 37 ??C (98.6 ??F) 02/21/2024 7:26 PM EDT Respiratory Rate 18 02/21/2024 7:26 PM EDT Oxygen Saturation 99% 02/21/2024 7:26 PM EDT Inhaled Oxygen Concentration - - Weight 72.6 kg (160 lb) 02/21/2024 7:26 PM EDT Height 167.6 cm (5' 6 ) 02/21/2024 7:26 PM EDT Body Mass Index 25.82 02/21/2024 7:26 PM EDT Plan of Treatment Not on file Procedures * Due to [place] state law, this organization might not be sharing negative HIV tests. Procedure Name Priority Date/Time Associated Diagnosis Comments COMPREHENSIVE METABOLIC PANEL STAT 10/15/2023 2:12 PM EDT from Last 3 Months or Most Recently Relevant to Health Maintenance Results * Due to [place] state law, this organization might not be sharing negative HIV tests. * (ABNORMAL) Comprehensive Metabolic Panel (If age > or equal to 70) (10/15/2023 2:12 PM EDT) NA 143 135 - 145 mmol/L 10/15/2023 3:42 PM EDT [facility] K 3.3(L) 3.5 - 5.3 mmol/L 10/15/2023 3:42 PM EDT [facility] Cl 106 98 - 107 mmol/L 10/15/2023 3:42 PM EDT [facility] CO2 24 24 - 32 mmol/L 10/15/2023 3:42 PM EDT [facility] Anion Gap 13 5 - 15 10/15/2023 3:42 PM EDT [facility] Glucose 119(H) 65 - 99 mg/dL 10/15/2023 3:42 PM EDT [facility] Creatinine 0.80 0.60 - 1.30 mg/dL 10/15/2023 3:42 PM EDT [facility] Calcium 8.8 8.6 - 10.5 mg/dL 10/15/2023 3:42 PM EDT [facility] Total Protein 6.9 6.0 - 8.0 g/dL 10/15/2023 3:42 PM EDT [facility] Albumin 4.4 3.5 - 5.2 g/dL 10/15/2023 3:42 PM EDT [facility] Bilirubin, Total 0.7 0.2 - 1.2 mg/dL 10/15/2023 3:42 PM EDT [facility] Alkaline Phosphatase 49 35 - 129 U/L 10/15/2023 3:42 PM EDT [facility] AST 18 10 - 40 U/L 10/15/2023 3:42 PM EDT [facility] ALT 9(L) 10 - 40 U/L 10/15/2023 3:42 PM EDT [facility] BUN 14 7 - 23 mg/dL 10/15/2023 3:42 PM EDT [facility] eGFR >90 >=60 mL/min/1. 73m2 10/15/2023 3:42 PM EDT [facility] Comment:The estimated glomer ular filtration rate (eGFR) is calculated using a new formula developed by the NKF-ASN task force to eliminate race-based correction factors. The new formula uses serum/plasma creatinine, age, and gender to determine eGFR. A value below 60mls/min might indicate kidney disease and will be flagged. For additional information, see Mera et al, Am J Kidney Dis. 2021;79(2):268- 288, A Unifying Approach for GFR estimation: Recommendations of the NKF-ASN Task Force on Reassessing the Inclusion of Race in Diagnosing Kidney Disease . Globulin, Total 2.5 2.1 - 4.2 g/dL 10/15/2023 3:42 PM EDT [facility] A/G Ratio 1.8 1.5 - 3.0 10/15/2023 3:42 PM EDT [facility] Blood Structure of peripheral vein / Unknown Venipuncture / Unknown 10/15/2023 2:12 PM EDT 10/15/2023 2:44 PM EDT us Salvador Jacobsen MD LAB BLOOD ORDERABLES Final R esult [facility] [address] [place] [address], from Last 3 Months or Most Recently Relevant to Health Maintenance Insurance [employer] [id number] [employer] Care Teams Paper Coating Machine Operator Relationship Specialty Start Date End Date Dylan Shabazz [address] [place] [id number] PCP - General Internal Medicine 07/05/19
--- OUTSIDE RECORDS SUMMARY | 2024-06-27 10:10 | XMS_ITS | Data Portability ---
Author Organization [employer] in - [employer] Address [address] [place] [phone] Care Team Providers Care Museum Librarian Name Role Phone HIM CCA OTHER Assessment Encounter Date Assessment Date Assessment LastModified by Organization Details LastModified Time 08/27/2023 08/27/2023 As noted, we were called to see this patient regarding concerns of diarrhea. Evaluation in the field was performed by my disc inspector colleague, as noted above, I provided real-time direction and supervision for this visit. The evaluation revealed 72y M with recent trip to [facility] and 3d diarrhea - normal frequency (3x/d) but increased liquid. No other sxs. Exam benign inc appears hydrated. Eating/drinking well. Recommended to continue obs. If persistent or worsening, present to PCP's office for more comprehensive work up. Impression: mild diarrhea Plan: observation, f/u w PCP if continues or worsens Primary care, consider interval f/u in 7-10 d Disposition: We discussed the diagnostic uncertainty of home visits and the risk associated with this. In this case, the patient and I felt this to be an acceptable and reasonable amount of risk given the benefit of avoiding an ED visit. We discussed the need to seek care urgently/emergen tly in the setting of any new or worsening serious symptoms, particularly fever, vomiting, abdominal pain, bloody or tarry stool [email or web address] Not available 08/27/2023 19:19:15 09/06/2023 09/06/2023 I provided real -time medical direction via phone for this encounter, and was available for additional phone based assistance as needed. I have reviewed and agree with the Assessment and Plan as documented by the Box Annealer. We discussed the diagnostic uncertainty of home visits and the risk associated with this. In this case I felt this to be an acceptable and reasonable amount of risk given the benefit of avoiding an ED visit. The patient given the opportunity to ask questions. Patient wanted us to send stool studies and advised that we do not have the capability of doing that because of the way the specimens need to be handled and limitations of our service, I advised that he follow-up with his PCP to get those done at the lab directly. Advised if develops CP/severe SOB/turning blue/severe abdominal pain /uncontrolled n/v/d or black/bloody emesis or stool/ AMS/ syncope/ hi fever to call 911- he verbalized understanding of instructions to the medic antione Not available 09/06/2023 13:06:49 12/01/2023 12/01/2023 As noted, we were called to see this patient regarding concerns of upper respiratory symptoms Evaluation in the field was performed by my disc inspector colleague, as noted above, I provided real-time direction and supervision for this visit. The evaluation revealed the same Impression: 72yo/m referred to [facility] for several days of viral respiratory symptoms that are currently resolved. Patient reported that 3-4 days ago had developed some nonproductive cough, nasal congestion, mild sore throat, subjective fevers. However today during assessment with medic those symptoms are now largely resolved. States no longer having cough or fevers/chills. Is still having some mild sore throat symptoms. No headache, no neck pain or stiffness, no changes in mental status. No chest pain, dyspnea, abdominal pain. Eating and drinking normally, ambulating at baseline. States otherwise feels well. He did have questions regarding the medications he was taking for symptomatic treatment, including flonase, cepacol, robitussin. Denies other ROS at this time, and no other questions for the patient at this time. Patient has taken a home covid test during this time and that is negative. Plan: Impression is viral respiratory illness that is currently improving. With re-assuring vitals and exam today, I believe patient is stable for continued observation of his symptoms in the home, PMD followup for recheck, and strict instructions to reach out immediately with any acute worsening or change in symptoms. I have a low suspicion at this time for an occult emergency medical condition such as ACS, PE, aortic dissection, AAA, meningitis, sepsis. Primary care, consider followup if symptoms not fully resolved. Disposition: We discussed the diagnostic uncertainty of home visits and the risk associated with this. In this case, the patient and I felt this to be an acceptable and reasonable amount of risk given the benefit of avoiding an ED visit. We discussed the need to seek care urgently/emergen tly in the setting of any new or worsening serious symptoms, particularly any acute worsening symptoms or illness [email or web address] Not available 12/01/2023 12:14:32 01/10/2024 01/10/2024 I have reviewed and agree with the assessment and plan as documented by the disc inspector. I provided real time medical direction for this encounter and was immediately available to provide additional phone based assistance as needed. History as noted by disc inspector. Pt with history of DM2, HTN. Pt reports 1 week of intermittent suprapubic lower abdominal pain that he describes as sharp with associated painful urination. He reports pain in the bladder and penis with urination. He notes urinary frequency as well. No hematuria. Pt feels that he empties his bladder normally when urinating. Pt denies any nausea, vomiting, flank pain, fevers or chills. On exam, pt appears comfortable. Vitals unremarkable, afebrile. Abdomen soft with no tenderness. No CVA tenderness. Urine dip: + leukocytes, nitrite negative Impression: Pt with suprapubic and urethral pain with urination x1 week, with frequency, no flank pain, vomiting, fevers or chills. Pt afebrile with no abdominal or CVA tenderness noted on exam. No prior history of UTI. Urine dip is consistent with UTI. Urine culture sent to [facility]. Diagnosis of UTI discussed with pt. Pt is prescribed cefpodoxime 200mg bid x7 days which he is told to start taking today. Pt is told to call and f/u with his primary care team in 2-3 days to discuss his symptoms and to have them check the results of today's urine culture. To Primary Care Team: Please check result of urine culture and sensitivity in 2-3 days and follow up with him to ensure that he is feeling improved. Pt is instructed to seek medical attention in the ED if his symptoms are not improving with the antibiotics, or if he develops any persistent or worsening abdominal pain, or any vomiting or fevers. [email or web address] Not available 01/10/2024 12:15:01 04/20/2024 04/20/2024 I provided real -time medical direction via phone for this encounter and was available for additional phone-based assistance as needed. I have reviewed and agree with the Assessment and Plan as documented by the Box Annealer. Patient given the opportunity to ask questions. Our service contacted for an assessment of: viral symptoms As per above, patient with an approx week worth of headache nasal congestion and myalgias arthralgias. Positive sick contacts. Taking ptyj-aon-lyvieml medications with a positive trajectory. Wanted to be tested for viral illnesses. Denies chest pain shortness of breath. Per disc inspector on the scene, vital signs are stable the patient is afebrile. COVID and flu were negative. Lungs are clear. Nontoxic on exam. Impression: Viral syndrome Plan: Would add Tylenol and or nonsteroidals to regimen. Continue with hydration. Get plenty of rest. Red flags discussed. Allergies: Reviewed PCP f/u: We discussed the diagnostic uncertainty of home visits and the risk associated with this. In this case, the patient and I felt this to be an acceptable and reasonable amount of risk given the benefit of avoiding an ED visit. We discussed the need to seek care urgently/emergen tly in the setting of any new or worsening serious symptoms, particularly fever chills [email or web address] [id number] Not available 04/20/2024 12:27:50 Plan of Treatment Reminders Order Date Submit Date Provider Last Modified By Organization Details Last Modified Time Details Appointments None recorded. Lab rapid SARS CoV 2 Ag, QL IA, respiratory specimen [address], [address] [place] [address], [id number], 4 12:07:44 rapid flu (A+B) [address], [address] [place] [address], [id number], 4 12:07:45 urinalysis, dipstick 2023 024 [email or web address] [facility], [address] [place] [address], [id number], 4 12:04:04 culture, urine 2023 024 HEATHER [facility], [address] [place] [address], [facility], [place], [address], 4 15:18:20 Referral None recorded. Procedures None recorded. Surgeries None recorded. Imaging None recorded. Medication Orders cefpodoxime 200 mg tablet 2023 024 [id number] [address] [place], [address], 4 12:04:08 loperamide 2 mg tablet 2023 024 [email or web address] 0 [facility]armacy #[id number], [address] [place], [address], 4 13:09:24 Anti-Diarrh eal (loperamide ) 2 mg tablet 2023 024 [id number], [address] [place], [address], 4 13:09:29 Patient TargetsNo targets recorded. Patient InstructionsNo instructions recorded. Reason for Referral None Reported. Results Created Date Observation Date Name Description Value Unit Range Abnormal Flag Note LastModifiedBy Organization Detail LastModifiedTime 01/13/2001/13/2024 CULTU RE, URINE , ROUTI NE culture, urine, routine SEE NOTE CULTU RE, URINE , ROUTI NE Micro Numbe r: [id number] Test Statu s: Final Speci men Sourc e: Urine , clean catch Speci men Quali ty: Adequ ate Resul t: No Growt h NO COLLE CTION DATE RECEI SAMIR. WE HAVE USED THE DATE THE SPECI MEN WAS RECEI SAMIR BY THIS LABOR ATORY THE COLLE CTION DATE. IF THIS IS INCOR RECT, PLEAS E CONTA CT CLIEN T SERVI ROSEMARY. PHONE NUMBE R: [phone] Not Available [facility] [address] Maikel Cordero, [place], [address], 01/13/2024 15:18:20 04/20/20 24 04/20/2024 rapid flu (A+B) Flu negati ve Not Available Main - [facility] ed [address] [place] [address], [id number], 04/20/2024 12:07:30 04/20/20 24 04/20/2024 rapid SARS CoV 2 Ag, QL IA, respi rator y speci men rapid SARS CoV 2 Ag, QL IA, respiratory specimen negati ve Not Available Main - [facility] ed [address] [place] [address], [id number], 04/20/2024 12:07:24 Result Notes None recorded. Medical Equipment None Reported. Allergies No known drug allergies Medications Name Sig Start Date Stop Date Status Note LastModified by Organization Details LastModified Time celecoxib 200 mg capsule active Not Available Not Available Not Available Anti-Diarrhe al (loperamide) 2 mg tablet Take 1 tablet 4 times a day by oral route as needed. 2023 active Not Available Not Available Not Avai lable metformin 500 mg tablet TAKE 1 TABLET BY MOUTH TWICE A DAY active Not Available Not Available No t Available acetaminophe n 325 mg tablet active Not Available Not Available Not Available loperamide 2 mg capsule TAKE 1 CAPSULE BY MOUTH FOUR TIMES A DAY NEEDED active Not Available Not Available No t Available cefpodoxime 200 mg tablet Take 1 tablet every 12 hours by oral route for 7 days. 2023 active Not Available Not Available Not Avai lable aspirin 325 mg tablet active Not Available Not Available No t Available atovaquone 250 mg-proguanil 100 mg tablet TAKE 1 TABLET BY MOUTH ONCE A DAY. BEGIN 2 DAYS PRIOR TO TRIP AND CONTINUE 7 DAYS AFTER RETURN. active Not Available Not Available No t Available famotidine 20 mg tablet TAKE ONE TABLET(20 MG) ORALLY DAILY FOR 60 DAYS active Not Available Not Available No t Available OneTouch Ultra Test strips TEST ONCE PER DAY active Not Available Not Available No t Available amlodipine 10 mg tablet TAKE 2 TABLET BY MOUTH EVERY MORNING active Not Available Not Available No t Available benzonatate 100 mg capsule TAKE 1 CAPSULE BY MOUTH THREE TIMES A DAY NEEDED FOR 10 DAYS active Not Available Not Available Not Available simvastatin 20 mg tablet TAKE 1 TABLET BY MOUTH AT BEDTIME active Not Available Not Available No t Available docusate sodium 100 mg capsule active Not Available Not Available N ot Available bisacodyl 5 mg tablet,delay ed release 20 MG (4 X 5 MG) ORALLY ONCE FOR 1 DAY. TAKE 2 AT NOON THE DAY BEFORE COLONOSCOPY active Not Available Not Available Not Available ibuprofen 600 mg tablet TAKE 1 TABLET BY MOUTH EVERY 8 HOURS NEEDED FOR PAIN active Not Available Not Available No t Available polyethylene glycol 3350 17 gram/dose oral powder 238 G ORALLY ONCE FOR 1 DAY TAKE DIRECTED BY MOUTH THE DAY BEFORE YOUR PROCEDURE. active Not Available Not Available N ot Available celecoxib 100 mg capsule active Not Available Not Available Not Available losartan 100 mg tablet TAKE 1 TABLET BY MOUTH EVERY DAY IN THE MORNING active Not Available Not Available No t Available oxycodone 5 mg tablet TAKE 1 TABLET EVERY 8 HOURS NEEDED FOR PAIN, MODERATE(PA IN SCALE 4-6) FOR 7 DAYS active Not Available Not Available No t Available azithromycin 500 mg tablet TAKE 2 TABLETS (1,000 MG TOTAL) BY MOUTH ONCE FOR 1 DOSE. PRN SEVERE/STEVE ELER'S DIARRHEA. active Not Available Not Available No t Available tadalafil 5 mg tablet TAKE 1 TABLET BY MOUTH EVERY DAY active Not Available Not Available No t Available fluocinolone acetonide oil 0.01 % ear drops INSTILL 5 DROPS IN EACH AFFECTED EAR TWICE A DAY FOR 14 DAYS active Not Available Not Available No t Available guaifenesin ER 600 mg tablet, extended release 12 hr Take 1 tablet every 12 hours by oral route as needed for 10 days. 2023 active Not Available Not Available Not Avai lable OneTouch Ultra2 Meter TEST ONCE PER DAY active Not Available Not Available No t Available OneTouch Delica Plus Lancet 30 gauge TEST ONCE PER DAY active Not Available Not Available No t Available Flowflex COVID-19 Antigen Home Test kit USE DIRECTED active Not Available Not Available No t Available Vitals Date Recorded Body temperature Heart rate Respiratory rate Heart rate Oxygen saturation Oxygen saturation in Arterial blood by Pulse oximetry Systolic blood pressure Diastolic blood pressure Systolic blood pressure Diastolic blood pressure Provider Name and Address Organization Details Last Updated DateTime 4 97.9 [degF] 69 /min 16 /min 66 /min 99 % 99 % 152 mm[Hg] 80 mm[Hg] 150 mm[Hg] 80 mm[Hg] Not Available [facility] 4 19:14:53 Date Recorded Body weight Heart rate Respiratory rate Body temperature Oxygen saturation Oxygen saturation in Arterial blood by Pulse oximetry Body height Provider Name and Address Organization Details Last Updated DateTime 4 00483.8 g 66 /min 14 /min 98.4 [degF] 100 % 100 % 167.64 cm Not Available [employer] 4 12:58:45 Date Recorded Systolic blood pressure Diastolic blood pressure Provider Name and Address Organization Details Last Updated DateTime 09/06/2023 124 mm[Hg] 79 mm[Hg] Billie Hunt MD [address] [facility],[address], [place], [address], MD - [employer] 09/06/2023 13:02:08 Date Recorded Respiratory rate Body temperature Body weight Heart rate Body height Oxygen saturation Oxygen saturation in Arterial blood by Pulse oximetry Systolic blood pressure Diastolic blood pressure Provider Name and Address Organization Details Last Updated DateTime 4 20 /min 98.3 [degF] 86209.7 2 g 70 /min 167.64 cm 95 % 95 % 140 mm[Hg] 90 mm[Hg] Not Available [email or web address] 4 12:06:16 Date Recorded Heart rate Body weight Respiratory rate Body temperature Oxygen saturation Oxygen saturation in Arterial blood by Pulse oximetry Body height Systolic blood pressure Diastolic blood pressure Provider Name and Address Organization Details Last Updated DateTime 4 80 /min 29907.6 g 14 /min 98.4 [degF] 98 % 98 % 157.48 cm 156 mm[Hg] 95 mm[Hg] Not Available [email or web address] 4 11:59:34 Date Recorded Body temperature Respiratory rate Heart rate Oxygen saturation Oxygen saturation in Arterial blood by Pulse oximetry Systolic blood pressure Diastolic blood pressure Provider Name and Address Organization Details Last Updated DateTime 4 98.5 [degF] 16 /min 71 /min 97 % 97 % 145 mm[Hg] 83 mm[Hg] Not Available [email or web address] 4 11:07:16 Social History None recorded. Functional Status None recorded. Mental Status None recorded. Family History Nothing Reported. Medical History No medical history recorded. Past Encounters Encounter ID Performer Location Encounter Start Date Encounter Closed Date Diagnosis/Indication Diagnosis SNOMED-CT Code Diagnosis ICD10 Code Diagnosis Note [id number] Nakita Condon MD [facility] - [facility] [address] [place], [place] [phone] 04/23/2023 20:56:48 04/25/2023 12:36:01 Headache 54594603 R51.9 [id number] Andrew Cavazos MD Main - [facility] [address] [place] [phone] 06/12/2023 14:18:29 06/13/2023 10:54:21 Viral upper respiratory tract infection 016284610 J06.9 [id number] Paulina Sparks MD Main - [facility] [address] [place] [phone] 08/27/2023 19:14:51 08/29/2023 11:44:17 Diarrhea 44257782 R19.7 [id number] Billie Hunt MD Main - [facility] [address] [place] [phone] 09/06/2023 12:58:43 09/06/2023 17:35:55 Diarrhea 06615056 R19.7 Patient is eating and drinking well, he does not clinically appear dehydrated . Exam is benign-he is only having 2 loose stools a day. He is no longer on polyethyle ne glycol. He is afebrile. He has not recently had antibiotic s so I doubt C. difficile is an issue here. Offered and accepted loperamide -reviewed dietary restrictio ns i.e. brat diet with boiled or broiled plain fish or chicken, avoid raw fruits exc banana and vegetables -advised to stay well-hydra sydnie [id number] Jasvir Schaefer MD Main - [facility] [address] [place] [phone] 12/01/2023 12:06:14 12/01/2023 18:14:08 Viral upper respiratory tract infection [id number] J06.9 [id number] Andrew Cavazos MD Main - [facility] [address] [place] [phone] 01/10/2024 11:59:31 01/10/2024 17:47:10 Urinary symptoms [id number] R39.9 [id number] Nakita Condon MD Main - [facility] [address] [place] [phone] 04/20/2024 11:07:14 04/23/2024 20:40:04 Viral syndrome 651375654 B34.9 Health Concerns Section Related Observation LastModified by Organization Detai ls LastModified Time None Recorded Concern Status LastModified by Organization Details LastModified Time None Recorded Advance Directives Directive None Recorded Payers Encounter Date Sequence Insurance Name Policy Number Policy Cao Covered Member ID Cao Member ID Guarantor Name 08/27/2023 1 [facility] DOS ON OR AFTER 2022 - DUAL ELIGIBLE - DETENTION OPTIONS AND ONE CARE (MEDICARE REPLACEMENT/ADV ANTAGE - HMO) Issaka Epps [id number] Issaka Epps 09/06/2023 1 Victoria Plumb [employer] - DOS ON OR AFTER 2022 - DUAL ELIGIBLE - DETENTION OPTIONS AND ONE CARE (MEDICARE REPLACEMENT/ADV ANTAGE - HMO) Issaka Epps [id number] Issaka Epps 12/01/2023 1 [facility] - DOS ON OR AFTER 2022 - DUAL ELIGIBLE - DETENTION OPTIONS AND ONE CARE (MEDICARE REPLACEMENT/ADV ANTAGE - HMO) Issaka Epps [id number] Issaka Epps 01/10/2024 1 Victoria Plumb [employer]ANCE - DOS ON OR AFTER 2022 - DUAL ELIGIBLE - DETENTION OPTIONS AND ONE CARE (MEDICARE REPLACEMENT/ADV ANTAGE - HMO) Issaka Epps [id number] Issaka Epps 04/20/2024 1 [facility] [employer] - DOS ON OR AFTER 2022 - DUAL ELIGIBLE - DETENTION OPTIONS AND ONE CARE (MEDICARE REPLACEMENT/ADV ANTAGE - HMO) Issaka Epps [id number] Issaka Epps Notes Date Note Type Note Provider Name and Address Organization Details Recorded Time 08/27/2023 text/html [facility] Nurse Triage Notes (Pedro Smith): Chief Complaints: Gastroenteritis Allergies: Unknown Comments: Subassembly Supervisor verified the member's name//address and phone number. Mbr calling c/o 3-4 days of loose stools. Mbr denies nausea or vomiting. Mbr reports recent travel to [facility] in June and came home at the end of July. Education provided on the response time and the member was advised to monitor reported s/s and seek emergency treatment if needed -Angus Smith, JACLYNC HPI: diarrhea three times daily - three days. frequency is normal for him, but stool is much more liquid than normal. no known sick contacts, no abdominal pain, bloody or black stool, eating and drinking okay................. ..................... ..................... ..................... ..................... ..................... .................... Box Annealer Note From Hussein Dueñas: Pt reports that he has had a change in consistency of his stool states rhat iver the past 3 days has been having loose watery stools with appx three episodes/day states that frequency in normal for him denies any abd pain denies any N/V denies any sophia reports eating and drinking well on scene vs taken with orthos and [facility] called. Pt advised to follow up with PCP if symptoms persist and cleared. ..................... ..................... ..................... ..................... ..................... ..................... ............... Disposition: Fulfilled Paulina Saprks MD [address] [facility],[address], [place], [address], NIA - MAKAYLA CRUZ 08/27/2023 19:46:07 09/06/2023 text/html [facility] Nurse Triage Notes (Emerita Cho): Reason For Request: Pt reporting being seen by Mateo 10 days ago but is still experiencing diarrhea/abdominal pain Chief Complaints: Abdominal Pain, Diarrhea PMH: Hypertension, Heart Disease Allergies: No Known Comments: Member calling in to place a referral, verified via name, and address. [facility], plan was to observe and see PCP. Member saw PCP last week, however, diarrhea had resolved and no interventions were needed. Member started with diarrhea again 3 days ago and slight abdominal discomfort. Per member stool is yellow, denies blood, varies between being soft and liquid in nature, unsure if it has a foul odor, +flatus, denies abdominal swelling or distention, abdomen soft, no tenderness, denies n/v, endorses great appetite, no fever/chills, no recent abx use. Per member he has had 2 bowel movements today. Member was given an estimated time of arrival and member was advised to call 911 for any new or worsening symptoms, member verbalized understanding. SEGMD: Patient reports he had colonoscopy several months ago and it was normal. He has not had any recent antibiotics, no fever or chills. He is eating and drinking well he often goes to [employer] restaurant or has vegetable soup and rice. He is no longer taking polyethylene glycol. Patient was seen on 08/26 his exam showed no acute distress vital signs were stable he was afebrile-the stool is intermittently liquid............... ..................... ..................... ..................... ..................... ..................... ..................... . Box Annealer Note From Seamus Aragon: Patient conscious alert oriented times three complaints of diarrhea times two days. Patient denies any pain, weakness, nausea, vomiting, or any other pain or complaints. Patient reports he had two weeks of diarrhea then a week without diarrhea now again for two days. Patient reports normal diet for him, hydration. Patient denies urinary complaints or any fever or illness. Patient reports yellow soft stool and occasional watery BM. Patient denies black or bloody stool.Patient, pink warm and dry abdomen soft nontender no edema negative increase work of breathing. Patient walks with a steady even gait. [facility] orders loperimide 4 mg PO and will RX more to the patient? s local pharmacy.Red flags and pt education discussed BRAT diet discussed. ..................... ..................... ..................... ..................... ..................... ..................... ............... Disposition: Fulfilled Billie Hunt MD [address] [place] [address],[address], [place], [phone] [employer] 09/06/2023 13:30:29 12/01/2023 text/html CRC Nurse Triage Notes (Josias Whitehead): Reason For Request: Pt reporting a cold, sore throat, headache, feverish, partial weakness>symptoms going on 4 days Chief Complaints: Cough, Headache, Fever/Chills PMH: Hypertension, Heart Disease Other Allergies: NKA Comments: Subassembly Supervisor verified the member's name//address and phone number. Education provided on the response time and the member was advised to monitor reported s/s and seek emergency treatment if needed.Member reports having a cough/cold and congestion with a headache and sore throat - Fever with weakness - S/S for 4 days - Denies SOB - Denies CP - Denies N/V ..................... ..................... ..................... ..................... ..................... ..................... ............... Box Annealer Note From Raven Gonzales: Pt chief complaint today is to have a medical personnel come out to assure him the meditations he has purchased over the counter will not harm him and assist him. Pt is stating for the lastx4 days he has been battling some form of infection and he feels significantly better. The patients has gone to his local pharmacy and acquired some over the counter vitamin C, Flonase and robitussen and make sure they are safe. Pt denies any cp, sob and nvd. Pt does advocate to have a small tingle in his throat.Non neural focal exam performed. Afebrile, vitals are wnl.Lungs are clear bilaterally upon auscultation. Benign abdominal exam. No lower extremity edema noted. Upon visualization of the oropharynx. No disadvantageous markings, pustules or landmarks noted. Slight red tinge to the back of the area. [facility] consulted Pt educated on the medications including their effects and dangers, However pt is informed he may continue taking them as directed.Pt educated on re flag s&s and instructed to call emergency services if any present. ..................... ..................... ..................... ..................... ..................... ..................... ............... Disposition: Fulfilled Jasvir Schaefer MD [address] [facility],[address], [place], [address], [facility] [employer] 12/01/2023 12:27:00 01/10/2024 text/html This was a super vised home visit with disc inspector Seamus Aragon. [facility] Nurse Triage Notes (Brianda Santos): Reason For Request: UTI Chief Complaints: UTI/Pyelonephritis PMH: Hypertension, Heart Disease Allergies: No Known Comments: Subassembly Supervisor verified the member's name//address and phone number. Member is a 73 yr old male , a/o3 PMH >HTN / Allergies >NKDA The The patient is called for feeling unwell. The patient has c/o and pain . He has had the pain; he has had intermittent pain for over a week. Pt has pain when he is urinating. His urine has an odor has frequency but not urgency . Denies f/c/n/v/ but having loose stool. Education provided on the response time and the member was advised to monitor reported s/s and seek emergency treatment if needed Box Annealer Organization Information for Seamus Aragon Legal Name: [facility] Address: [address] [place] [address], [place] [address], Recovery Engineer: Kodi Lee MD [facility] No.: [id number] Box Annealer POC Test Results from Seamus Aragon Urine Dipstick (11:39:00) Urine leukocytes: + DARCI Urine nitrites: - NIT Urine urobilinogen: 0.2 URO Urine protein: 30 PRO Urine pH: 5.0 pH Urine blood: - BLO Urine specific gravity: 1.015 SG Urine ketones: 15+ KET Urine bilirubin: - TOBIN Urine glucose: - GLU ..................... ..................... ..................... ..................... ..................... ..................... ............... Box Annealer Note From Mahesh Seamus: Patient alert and oriented, answers the door, walking evenly. Patient complains of lower, abdominal pain, sharp, noticed a week ago. Patient also states it hurts to urinate. Patient denies burning urination, increase frequency, CVA tenderness, history of UTIs, nausea, vomiting, diarrhea, or any other pain or complaints. Patient denies black or stool. Patient reports normal appetite. Patient denies any other pain or complains.Northwest warm, dry, secondary exam unremarkable abdomen soft, soft, non-tender. Extremities unremarkable, no increased breathing noted. UA dip values to [facility]. [facility] orders antibiotic to patients, local pharmacy, culture to [facility],. Patient demonstrates understanding of care and plan. [facility] Lab Orders: urinalysis, dipstick: Performed Comment: bright dark yellow, clear no sediment no odor ..................... ..................... ..................... ..................... ..................... ..................... ............... Disposition: Fulfilled Andrew Cavazos MD [address] [place] [address],[address], [place], [address] [employer] 01/10/2024 13:34:01 04/20/2024 text/html CRC Nurse Triage Notes (Josias Whitehead - YASIR): Denies: Increased work of breathing/labored ? with or without fever Unable to speak in full sentences without distress Needs to sleep sitting up, can? t catch breath Shortness of breath in setting of confusion Cough Chief Complaints: Headache, Joint pain/swelling PMH: Hypertension, Coronary Artery Disease Comments: Subassembly Supervisor verified the Pt.'s name//address and phone number. Education provided on the response time and the Pt. was advised to monitor reported s/s and seek emergency treatment if needed. Pt reports feeling unwell with a headache, sore throat and joint pain - Unknown fever - S/S x 2 days - Denies cough and congestion. Denies SOB - Denies rashes - Denies joint swelling - Vague Reponses - Reports taking over the counter flu medication with no relief. Wellness visit requested. Box Annealer Organization Information for [employer] Legal Name: [employer] Address: [address] [place] [address], Recovery Engineer: Fitz FLANAGAN No.: [id number] Box Annealer POC Test Results from [employer] Rapid COVID antigen (11:04:17) COVID: - Attachments uploaded as part of this test result can be found under Documents section. Rapid influenza antigen (11:04:18) Flu: - Attachments uploaded as part of this test result can be found under Documents section. ..................... ..................... ..................... ..................... ..................... ..................... ............... Box Annealer Note From Palmer [employer]: Was dispatched for a 73 Y/O male complaining of a headache and joint pain. UOA PT was found sitting on his couch. PT is A/Ox4. PT reported he has had joint pain and a headache with a dry non productive cough for a few days now. PT vitals were obtained and an assessment was performed. PT HEENT, JVD, pupils, and skin were normal. PT lung sounds were clear with bilateral chest rise and fall. PT ABD area was soft and non tender. PT has normal CSMs in all his extremities. PT was tested for Covid, and the flu, both negative. [facility] was contacted, [facility] believes the PT has a common cold that is going around and instructed the PT to treat at home with Tylenol, cough medication, and nasal decongestion. PT understood. Crew cleared. ..................... ..................... ..................... ..................... ..................... ..................... ............... [facility] Consulted: Nakita Condon ..................... ..................... ..................... ..................... ..................... ..................... ............... Disposition: Fulfilled Nakita Condon MD [address] [facility],[address], [place], [address], [facility] MAKAYLA CRUZ 04/20/2024 12:28:37
--- OUTSIDE RECORDS SUMMARY | 2024-06-27 10:10 | XMS_ITS | Encounter Summary ---
Author Organization [facility] Address [address] [place] [address] Care Team Providers Care Doll Repairer Name Role Phone Dylan Shabazz Primary Care Provider [phone] Encounter Details Date Type Department Care Team (Late st Contact Info) Description 10/09/2019 Lab Requisition [facility] [address] [id number] No, Referring Social History Tobacco Use Types Packs/Day Years Used Date Smoking Tobacco: Never Alcohol Use Standard Drinks/Week Comments Not Currently 0 (1 standard drink = 0.6 oz pur e alcohol) Sex and Gender Information Value Date Recorded Sex Assigned at Male 03/23/2023 10:38 AM EST Legal Sex Male 4:17 PM EDT Gender Identity Not on file Sexual Orientation Not on file documented as of this encounter Plan of Treatment Not on file documented as of this encounter Procedures * Due to [place] [employer] law, this organization might not be sharing negative HIV tests. Procedure Name Priority Date/Time Associated Diagnosis Comments COVID-19 PCR FOR SURVEILLANCE OF ASYMPTOMATIC PATIENT Routine 10/09/2019 3:39 PM EDT documented in this encounter Results * Due to [place] [employer] law, this organization might not be sharing negative HIV tests. 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 A negative result does not rule out the possibility of COVID-19 and should not be used as the sole basis for treatment or patient management decisions. If COVID-19 is still suspected, based on exposure history together with other clinical findings, re-testing should be considered. Swab Specimen from nasopharyngeal structure / Unknown 10/09/2019 3:39 PM EDT 10/09/2019 4:33 PM EDT Narrative [facility] - 10/10/2019 6:41 AM EDT These tests were developed, validated, and their performance characteristics determined by the Molecular Virology Laboratory at [facility] under CLIA [id number]. They have not been cleared or approved by the U.S. Food and Drug Administration (FDA). FDA Policy for Diagnostic Tests for Coronavirus Disease-2019 during the Public Health Emergency issued July 08, 2019, is followed. us Referring No LAB BODY FLUIDS AND STOOLS ORDER KARI Final Result [facility] [address] [place] [address], documented in this encounter Visit Diagnoses Not on filedocumented in this encounter Additional Health Concerns Infection Onset Date Last Indicated Resolved Time COVID-19 - Suspected infection 08/06/2022 08/06/2022 08/06/2022 8:34 PM EDT COVID-19 - Confirmed infection 08/06/2022 08/06/2022 09/05/2022 10:32 PM EDT documented as of this encounter Care Teams Doll Repairer Relationship Specialty Start Date End Date Dylan Shabazz [address] [place] [id number] PCP - General Internal Medicine 07/05/19 documented as of this encounter
--- OUTSIDE RECORDS SUMMARY | 2024-06-27 10:10 | XMS_ITS | Patient Health Record ---
Author Organization [facility] Address [address] [place] [address] Care Team Providers Care Lozenge Maker Helper Name Role Phone Dylan Shabazz Primary Care Provider Lakisha Harkins M.D, M.P.H, Alie Unavailable Allergies No Known Allergies Reason For Referral No Information Medications Medication SIG (Take, Route, Frequency, Duration) Notes Start Date End Date Status amLODIPine Besylate *Please revi ew and pick correct strength-formulation from [employer] options. If intended option is not shown, discontinue and re-order from Quick Search* Active Flac 0.01 % 5 gtt in each affected ear 2 times a day for 14 days Active Social History Tobacco Use: Social History Observation Description Date Details (start date - stop date) Never Smoker NA - NA Smoking: Question Answer Notes Are you a : Never Smoker Alcohol Screen Question Answer Notes Did you have a drink containing alcohol in the p ast year? No Points 0 Interpretation Negative Problems Problem Type SNOMED Code ICD Code Onset Dates Problem Status W/U Status Risk Notes Problem Hearing difficulty (736832207) Hearing difficulty (H91.90) Active confirmed Problem Bilateral hearing loss (38423610) Bilateral hearing loss (H91.93) Active confirmed Plan Of Treatment No Information Insurance Providers Payer Name Payer Address Payer Phone Subscriber Number Group Number Insured Name Patient Relationship to Insured Coverage Start Date Coverage End Date [facility] [address] [place] [phone] [id number] SupriyaKevinspencer Self - patient is the insured 9 Medical (General) History Medical History History ICD Code hypertension high cholesterol
--- OUTSIDE RECORDS SUMMARY | 2024-06-27 10:10 | XMS_ITS | Clinical Summary ---
Author Organization [facility] Address [address] [place] [address] Care Team Providers Care Yarn Preparation Supervisor Name Role Phone Dylan Shabazz Primary Care Provider [phone] Allergies No known active allergies Medications amLODIPine [...] e Free 04/07/2021 Pneumococcal conjugate PCV20 ,polysaccharide [id number] conjugate, adjuvant, PF (Prevnar 20) 09/23/2022 Poliovirus [...] 02/21/2024 7:26 PM EDT Plan of Treatment Health Maintenance Due Date Last Done Comments Cologuard 1952 Colon Cancer Screening 1950 Colonoscopy 1952 FOBT / Fit Test 1950 Hepatitis C Screening 1950 Sigmoidoscopy 1952 Alcohol/Substance Use Screening 04/24/2024 Depression Screening and Follow-Up 04/24/2024 Health Care Proxy Review 04/24/2024 Social Drivers of Health Annual Screening 04/24/2024 COVID-19 Vaccine ( season) 2024 01/04/2024, 10/01/2023, 02/09/2023, Additional history exists Basic Metabolic Panel 10/14/2024 10/15/2023 , 04/08/2021, 07/05/2019 DTaP,Tdap,and Td Vaccines (3 - Td or Tdap) 02/20/2034 02/21/2024, 02/10/2022 Pneumococcal Vaccine: 50+ Years Completed 09/23/2022 RSV Vaccine (60+ years old and patients) Completed 02/09/2023 Zoster Vaccines Completed 12/13/2023, 10/07/2022 Influenza Vaccine Completed 01/10/2024, , 02/02/2022, Additional history exists Hepatitis B Vaccines Aged Out No long er eligible based on patient's age to complete this topic Procedures * Due to [place] [employer] law, this organization might not be sharing negative HIV tests. Procedure Name Priority Date/Time Associated Diagnosis Comments COMPREHENSIVE METABOLIC PANEL STAT 10/15/2023 2:12 PM EDT from Last 3 Months or Most Recently Relevant to Health Maintenance Results * Due to [facility] law, this organization might not be sharing negative HIV tests. * (ABNORMAL) Comprehensive Metabolic Panel (If age > or equal to 70) (10/15/2023 2:12 PM EDT) NA 143 135 - 145 mmol/L 10/15/2023 3:42 PM EDT [facility] K 3.3(L) 3.5 - 5.3 mmol/L 10/15/2023 3:42 PM EDT [facility] Cl 106 98 - 107 mmol/L 10/15/2023 3:42 PM EDT [facility] CO2 24 24 - 32 mmol/L 10/15/2023 3:42 PM EDT [facility] Anion Gap 13 5 - 15 10/15/2023 3:42 PM T [facility] Glucose 119(H) 65 - 99 mg/dL 10/15/2023 3:42 PM [facility] Creatinine 0.80 0.60 - 1.30 mg/dL 10/15/2023 3:42 PM T [facility] Calcium 8.8 8.6 - 10.5 mg/dL 10/15/2023 3:42 PM [facility] Total Protein 6.9 6.0 - 8.0 g/dL 10/15/2023 3:42 PM [facility] Albumin 4.4 3.5 - 5.2 g/dL 10/15/2023 3:42 PM [facility] Bilirubin, Total 0.7 0.2 - 1.2 mg/dL 10/15/2023 3:42 PM [facility] Alkaline Phosphatase 49 35 - 129 U/L 10/15/2023 3:42 PM [facility] AST 18 10 - 40 U/L 10/15/2023 3:42 PM [facility] ALT 9(L) 10 - 40 U/L 10/15/2023 3:42 PM [facility] BUN 14 7 - 23 mg/dL 10/15/2023 3:42 PM [facility] eGFR >90 >=60 mL/min/1. 73m2 10/15/2023 3:42 PM [facility] Comment:The estimated glomer ular filtration rate (eGFR) is calculated using a new formula developed by the NKF-ASN task force to eliminate race-based correction factors. The new formula uses serum/plasma creatinine, age, and gender to determine eGFR. A value below 60mls/min might indicate kidney disease and will be flagged. For additional information, see Samaria et al, Am J Kidney Dis. 2021;79(2):268- 288, A Unifying Approach for GFR estimation: Recommendations of the NKF-ASN Task Force on Reassessing the Inclusion of Race in Diagnosing Kidney Disease . Globulin, Total 2.5 2.1 - 4.2 g/dL 10/15/2023 3:42 PM EDT [facility] A/G Ratio 1.8 1.5 - 3.0 10/15/2023 3:42 PM EDT [facility] Blood Structure of peripheral vein / Unknown Venipuncture / Unknown 10/15/2023 2:12 PM EDT 10/15/2023 2:44 PM EDT us Salvador Jacobsen MD LAB BLOOD ORDERABLES Final R esult [facility] [address] [place] [address], from Last 3 Months or Most Recently Relevant to Health Maintenance Insurance [place] [id number] [employer] Care Teams Yarn Preparation Supervisor Relationship Specialty Start Date End Date Dylan Shabazz [address] [place] [id number] PCP - General Internal Medicine 07/05/19
== END 2024-06-27 09:41 | disposition home or self-care (01) ==
PROVIDERS: PCP Internal Medicine; Visit Provider Internal Medicine Gastroenterology
DX: R63.0 Anorexia (principal); Z86.0100 Personal history of colon polyps, unspecified; K59.09 Other constipation
CPT/HCPCS: 99213

== ENCOUNTER → 2024-06-27 09:10 | Outpatient (BNVA) | payer OTHER, SELFPAY | PROVIDERS: PCP Internal Medicine; Visit Provider Internal Medicine Gastroenterology | DX: R63.0 Anorexia (principal); K59.09 Other constipation; Z86.0100 Personal history of colon polyps, unspecified | CPT/HCPCS: 99212 ==

== ENCOUNTER 2024-12-12 14:23 | Outpatient (AMB) | payer OTHER, SELFPAY ==
--- NOTE | 2024-12-12 14:27 | A.OFFPC_ITS ---
Vital Signs 12/12/24 14:28 Height 5 ft 6 in Weight 174 lb 6 oz BMI 28.1 BP 130/80 Blood Pressure Location Lt brachial Position Sitting Pulse 72 Pulse Source Pulse Oximeter Temp 97.3 F Temp Source Temporal Artery Scan Pulse Oximetry (%) 97 Oxygen Delivery Method Room Air Intake Visit Reasons: 3mth f/u- A1C needed. Intake Note: Patient is here to follow up on DM. Software Applications Architect Required: No Shipping Agent: Not Required per policy Accompanied by: Self / Same As Patient Allergies No Known Allergies Allergy (Verified 12/12/24 14:33) Tobacco use date assessed: 05/02/24 Fall risk assessment: No Falls in past year Last assessed Fall Risk: 12/12/24 Dental Screening Dental Screen Date: 05/02/24 [facility] Medical History (Updated 02/22/24 @ 10:04 by Destin Vaughn MD) Diabetes mellitus Osteoarthritis of left knee Hypercholesterolemia Hypertension Surgical History History of left knee surgery Hx of appendectomy History of colonoscopy (~05/05/23) Family History Mother No problems noted. Father No problems noted. Social History Household Members: Spouse Housing: House Are you a primary home care aide to a significant other at home: No Do you presently have visiting nurse or other home services: No Alcohol intake: current Alcohol intake frequency: holidays/special occasions only Alcohol type: beer and wine Comment: occasional use Patient Tobacco Use Status: Former Tobacco user Tobacco use type: Cigarette e-Cigarette/Vaping Use: Never Used Second Hand Smoke Exposure: Yes service: No Current occupational status: retired Cognitive needs: No Hearing needs: No Vision needs: Yes (glasses) Questionnaire Thrive Questionnaire Date Thrive assessed: 05/02/24 LEVAR-7 AMB Questionnaire LEVAR-7 Date LEVAR - 7 assessed: 05/02/24 Source: Developed by Drs. Kevin Linder, Natividad Johnson, Filemon Flanagan and colleagues, with an educational jaret from [employer]. Physical exam (Primary Care) Vital Signs: Last Vital Signs Temp 97.3 F 12/12/24 14:28 Pulse 72 12/12/24 14:28 BP 130/80 12/12/24 14:28 Pulse Ox 97 12/12/24 14:28 Oxygen Delivery Method Room Air 12/12/24 14:28 BMI result Body Mass Index 28.1 Tobacco/Smoking Status: Tobacco use Status Tobacco use date assessed 05/02/24 12/12/24 14:27 Patient Tobacco Use Status Former Tobacco user 12/12/24 14:27 Tobacco use type Cigarette 12/12/24 14:27 e-Cigarette/Vaping Use Never Used 12/12/24 14:27 Thrive Assessment: Date of Thrive Assessment Date Thrive assessed 05/02/24 12/12/24 14:27 Results AMB Hemoglobin A1c AMB Hemoglobin A1c 7.3 % Last Edit by CARLA Buckley on 12/12/24 14:43 Results Reviewed Results Reviewed: Laboratory Last Values Hgb A1c (Clinic) 7.3 % (4.0-6.0) H 12/12/24 14:27 Coding Level of Care Code Est Pt Level 4 (06995) Complex EM visit Add On G2211 Diagnoses Diabetes mellitus E11.9 Essential hypertension I10 Assessment & Plan Assessment & Plan (1) Diabetes mellitus: Code(s): E11.9 - Type 2 diabetes mellitus without complications Category: Medical Plan: A1c is stable. Continue meds at same dosage. (2) Essential hypertension: Code(s): I10 - Essential (primary) hypertension Category: Medical Plan: Blood pressure is in range. Continue meds at same dosage. Plan History of Present Illness - The patient is a 73-year-old male presenting for a routine follow-up and medication refill. - Resolved back pain: The patient reported that his back pain has resolved since the last visit. - Appetite changes: The patient expressed a desire for an appetite stimulant, although he has not experienced weight loss. Social History - Travel: The patient mentioned plans to visit his home country. Review of Systems - Musculoskeletal: Denies current back pain. - Gastrointestinal: Reports no weight loss despite decreased appetite. Physical Exam General: Cooperative and healthy appearing Nutritional Appearance: Well nourished Orientation/consciousness: Patient oriented x3 Limitations: No limitations Head: Normal to inspection General: Appearance normal, both eyes and all related structures Neck: Normal visual inspection Chest: Normal palpation of entire chest wall Respiratory: Normal respiratory effort Neurology: Patient oriented x3 Results Plan 1. Appetite Changes - Plan: No specific medication for appetite stimulation was recommended. The patient was advised to monitor his appetite and report any significant changes. 2. Resolved Back Pain - Plan: No further intervention required as the back pain has resolved. Discussion Notes During the visit, I discussed with the patient the resolution of his back pain and confirmed that no further treatment was necessary. We also talked about his appetite concerns, and I explained that there is no specific medication for appetite stimulation. I advised him to monitor his appetite and report any significant changes. We agreed on a follow-up in six months. Patient Instructions - Continue current medications as prescribed. - Complete the ordered blood work and follow up on results. - Monitor appetite and report any significant changes. - Schedule a follow-up appointment in six months. Orders: Orders AMB Hemoglobin A1c Today E11.9 - Type 2 diabetes mellitus without complications
[2024-12-12 14:28] VITALS: BP 130/80; PULSE 72; TEMP 36.3; O2SAT 97; BMI 28.1
--- OUTSIDE RECORDS SUMMARY | 2024-12-12 14:34 | XMS_ITS | Encounter Summary ---
Author Organization [facility] Address [address] [place] [address] Encounters * CPT with Medical instED at [facility] on 2024-11-18 { reasonForRequest : Patient's chest is beating hard, and feels building contractor his throat, and can't sleep well. , patientReports : , denies :[ Increased work of breathing/labored with or without fever , Unable to speak in full sentences without distress , Discoloration of skin -cyanosis , Needs to sleep sitting up, can t catch breath , Shortness of breath in setting of confusion , Cough, fever greater than 2 days , Lower extremity swelling , History of asthma, increased use of inhaler , COPD , COVID Exposure , Sputum increase ,&qu ot;Cough , Shortness of breath with exertion , Pain with inspiration ],&quo t;chiefComplaints : Fever, Common Cold , pmh : Hypertension, CoronaryArtery Disease , allergies : No Known Drug Allergies , otherAllergies& quot;: , painAssessment : , visitOutcome : ,"additionalComments : 73 y.o male complains of Fever, Breathing Problems\npatient self referring\nPatient states symptoms started over the weekend\nHe hasn't taken his temperature but states he feels hot and has chills. \nhe feels like his heart is beating faster than normal.\ndenies any sweating today or body aches.\ndenies any dizziness lightheadedness or chest pain\ndenies any coughing\nendorses nasal congestion and sneezing.\nHe states he has also had an \ itching on his scalp that has been keeping him up at night, the itching seems to migrate to other parts of the body\" denies any rashes. \ndenies any kidney issues and denies being on any blood thinners\nRequesting insted visit as he does not want to use the ER at all.\n\n\n\n\nI provided information on the mobile health provider response time and advised the patient and/or caregiver to monitor reported signsand symptoms. I discussed the warning signs of when to seek emergency care. } Pt chief complaint today of cold/ flu symptoms as well as increased heart rate. Pt state that all signs and symptoms have been occurring for approx 1 week prior to [facility] arrival at scene today however he does state that the increased heart rate has only occurred 1 day prior and has since stopped. Pt has not started or stopped any new medications that could attribute to this. Pt also notes that his throat feels very hot and agitated. Pt today would appreciate a general check up as well as treatment if possible. Pt today denies any cp, sob, NVD, dizziness or changes to vision. NKDA Nonneural focal exam, afebrile, vitals present as normal for the baseline of the pt. Pt is able to ambulate normally without hate assistance of a walker and or person. Lungs present as clear bilaterally upon auscultation. Benign abdominal assesment, no new and or worsening Lower extremity edema noted. Skin presents as warm, dry and or appropriate color. POC strep test take and noted to be negative . POC 12 lead ecg shows sinus aracely with no diagnostic markers for stemi activity. Pt is fully caox4 with a gcs of 15. [facility] Estrella Carlos consulted. Pt is informs of findings. Pt is told to contact his pcp at earliest convenience for potential follow up. Pt and family are educated more flag S&S and told to contact emergency services if any present. IV_(FLUIDS_AND/OR_MEDICATION), MEDICATION_IM, ORAL_MEDICATION, POC_BLOODWORK, POC_FLU_STREP, COVID_TEST [facility] by [facility] 2024-11-18
--- OUTSIDE RECORDS SUMMARY | 2024-12-12 14:34 | XMS_ITS | Encounter Summary ---
Author Organization [facility] Address [address] [place] [address] Care Team Providers Care Continuing Education Instructor Name Role Phone Dylan Shabazz Primary Care Provider [phone] Encounter Details Date Type Department Care Team (Late st Contact Info) Description 10/09/2019 Lab Requisition [facility] [address] [id number] No, Referring Social History Tobacco Use Types [...] of this encounter Procedures * Due to [place] [employer] law, this organization might not be sharing negative HIV tests. Procedure Name Priority Date/Time Associated Diagnosis Comments COVID-19 PCR FOR SURVEILLANCE OF ASYMPTOMATIC PATIENT Routine 10/09/2019 3:39 PM EDT documented in this encounter Results * Due to [place] Med[employer] law, this organization might not be sharing negative HIV tests. * COVID-19 PCR for Surveillance of Asymptomatic Patient, PLANT ASSOCIATE/OP/Saliva (10/09/2019 3:39 PM EDT) SARS CoV 2 RNA, RT PCR Not Detected Not Detected 10/10/2019 6:41 AM EDT [facility] Comment:A Not Detected (nega [...] PM EDT 10/09/2019 4:33 PM EDT Narrative [facility] - 10/10/2019 6:41 AM EDT These tests were developed, validated, and their performance characteristics determined by the Molecular Virology Laboratory at [facility] under CLIA [id number]. They have not been cleared or approved by the U.S. Food and Drug Administration (FDA). FDA Policy for Diagnostic Tests for Coronavirus Disease-2019 during the Public Health Emergency issued July 08, 2019, is followed. us Referring No LAB BODY FLUIDS AND STOOLS ORDER KARI Final Result [facility] [address] [place] [address], documented in this encounter Visit Diagnoses Not on filedocumented in this encounter Additional Health Concerns Infection Onset Date Last Indicated Resolved Time COVID-19 - Suspected infection 08/06/2022 08/06/2022 08/06/2022 8:34 PM EDT COVID-19 - Confirmed infection 08/06/2022 08/06/2022 09/05/2022 10:32 PM EDT documented as of this encounter Care Teams Continuing Education Instructor Relationship Specialty Start Date End Date Dylan Shabazz [address] [place] [id number] PCP - General Internal Medicine 07/05/19 documented as of this encounter
--- OUTSIDE RECORDS SUMMARY | 2024-12-12 14:34 | XMS_ITS | Clinical Summary ---
Author Organization [facility] Address [address] [place] [address] Care Team Providers Care Bottom Crane Operator Name Role Phone Dylan Shabazz MD Primary Care Provider [phone] Allergies No known active allergies Medications amLODIPine [...] Hyperlipidemia 11/14/2019 Constipation 11/14/2019 Insomnia 11/14/2019 Immunizations Immunization Administration Dates Next Due COVID-19, mRNA (Pfizer Pre F 2022) Monovalent, 30 mcg/0.3 ml 04/26/2021 Covid-19, mRNA (Pfizer Pre F 2022) Bivalent, 30 mcg/0.3 ml asntana-sucrose (12+) dose 02/10/2022 Influenza,high dose seasonal,trivalent,PF (Fluzo [...] 5 season) 2023 02/10/2022, 04/26/2021 Influenza (#1) 2024 02/02/2022, 04/07/2021, 01/22/2019 RSV (1 - 1-dose 75+ series) 12/30/2027 DTaP/Tdap/Td (2 - Td or Tdap) 02/11/2032 02/10/2022 Abdominal Aorta Imaging Discontinued HPV Vaccine (No Doses Required) Completed Hep A Aged Out No longer eligi [...] complete this topic Zoster (Zostavax) Discontinued Insurance [facility] Care Teams Bottom Crane Operator Relationship Specialty Start Date End Date Dylan Shabazz MD [address] [place] [address] PCP - General Internal Medicine 11/14/19
== END 2024-12-12 14:55 | disposition home or self-care (01) ==
LOC: HO.HMCH 14:23
PROVIDERS: PCP Internal Medicine; Visit Provider Internal Medicine
DX: E11.9 Type 2 diabetes mellitus without complications (principal); I10 Essential (primary) hypertension

== ENCOUNTER → 2024-12-12 14:23 | Outpatient (BNVA) | payer OTHER, SELFPAY | PROVIDERS: PCP Internal Medicine; Visit Provider Internal Medicine | DX: E11.9 Type 2 diabetes mellitus without complications (principal); I10 Essential (primary) hypertension | CPT/HCPCS: 83036; 99212 ==

== ENCOUNTER 2025-02-20 07:11 | Outpatient (REF) | payer OTHER, SELFPAY ==
--- OUTSIDE RECORDS SUMMARY | 2025-02-20 07:15 | XMS_ITS | Encounter Summary ---
Author Organization [facility] Address [address] [place] [address] Care Team Providers Care Material Handler 1St Shift Name Role Phone Dylan Shabazz Primary Care Provider [phone] Encounter Details Date Type Department Care Team (Late st Contact Info) Description 10/09/2019 Lab Requisition [facility] [address] [place] [address] No, Referring Social History Tobacco Use Types [...] as of this encounter Plan of Treatment Upcoming Encounters Date Type Department Care Team (Late st Contact Info) Description 05/07/2025 9:30 AM EST Appointment [facility] [address] [place] [address] [phone] Load Haul Dump Operator: Maritza Leone, TRAV Hubbard [address] [place] [address] [phone] documented as of this encounter Procedures * Due to [place] state law, this organization might not be sharing negative HIV tests. Procedure Name Priority Date/Time Associated Diagnosis Comments COVID-19 PCR FOR SURVEILLANCE OF ASYMPTOMATIC PATIENT Routine 10/09/2019 3:39 PM EDT documented in this encounter Results * Due to [place] state law, this organization might not be sharing negative HIV tests. * COVID-19 PCR for Surveillance of Asymptomatic Patient, QUALITY ASSURANCE DIRECTOR/OP/Saliva (10/09/2019 3:39 PM EDT) SARS CoV 2 RNA, RT PCR Not Detected Not Detected 10/10/2019 6:41 AM EDT [facility] Comment:A Not Detected [...] PM EDT 10/09/2019 4:33 PM EDT Narrative [facility] - 10/10/2019 6:41 AM EDT These tests were developed, validated, and their performance characteristics determined by the Molecular Virology Laboratory at [facility] under CLIA [id number]. They have not been cleared or approved by the U.S. Food and Drug Administration (FDA). FDA Policy for Diagnostic Tests for Coronavirus Disease-2019 during the Public Health Emergency issued July 08, 2019, is followed. us Referring No LAB BODY FLUIDS AND STOOLS ORDER KARI Final Result [facility] [address] [place] [address], documented in this encounter Visit Diagnoses Not on filedocumented in this encounter Additional Health Concerns Infection Onset Date Last Indicated Resolved Time COVID-19 - Suspected infection 08/06/2022 08/06/2022 08/06/2022 8:34 PM EDT COVID-19 - Confirmed infection 08/06/2022 08/06/2022 09/05/2022 10:32 PM EDT documented as of this encounter Care Teams Material Handler 1St Shift Relationship Specialty Start Date End Date Dylan Shabazz [address] [place] [address] PCP - General Internal Medicine 07/05/19 documented as of this encounter
--- OUTSIDE RECORDS SUMMARY | 2025-02-20 07:15 | XMS_ITS | Data Portability ---
Author Organization [employer] [facility] [place] [facility] Address [address] [place] [address] Care Team Providers Care Wash Rack Operator Name Role Phone HIM CCA OTHER Assessment Encounter Date Assessment Date Assessment LastModified by Organization Details LastModified Time 09/06/2023 09/06/2023 I provided real -time medical direction via phone for this encounter, and was available for additional phone based assistance as needed. I have reviewed and agree with the Assessment and Plan as documented by the Pediatric Oncology Nurse. We discussed the diagnostic uncertainty of home [...] verbalized understanding of instructions to the medic [email or web address] Not available 09/06/2023 13:06:49 12/01/2023 12/01/2023 As noted, we were called to see this patient regarding concerns of upper respiratory symptoms Evaluation in the field was performed by my mentally impaired teacher colleague, as noted above, I provided real-time direction and supervision for this visit. The evaluation revealed the same Impression: 72yo/m referred to [facility] for several days of viral respiratory symptoms [...] particularly any acute worsening symptoms or illness Not available 12/01/2023 12:14:32 01/10/2024 01/10/2024 I have reviewed and agree with the assessment and plan as documented by the mentally impaired teacher. I provided real time medical direction for this encounter and was immediately available to provide additional phone based assistance as needed. History as noted by mentally impaired teacher. Pt with history of DM2, HTN. Pt [...] consistent with UTI. Urine culture sent to [facility]. Diagnosis of UTI discussed with pt. Pt [...] Assessment and Plan as documented by the Pediatric Oncology Nurse. Patient given the opportunity to ask questions. Our service contacted for an assessment of: viral symptoms As per above, patient with an approx week worth of headache nasal congestion and myalgias arthralgias. Positive sick contacts. Taking wzwx-xbz-wismpyt medications with a positive trajectory. Wanted to be tested for viral illnesses. Denies chest pain shortness of breath. Per mentally impaired teacher on the scene, vital signs are stable [...] or worsening serious symptoms, particularly fever chills [email or web address] Not available 04/20/2024 12:27:50 Plan of Treatment Reminders Order Date Submit Date Provider Last Modified By Organization Details Last Modified Time Details Appointments None recorded. Lab rapid strep group A, throat 2024 025 [facility], [address] [place] [address], [phone] 5 22:30:04 rapid SARS CoV 2 Ag, QL IA, respiratory specimen [address], [address] [place] [address], [id number] 4 12:07:44 rapid flu (A+B) [email or web address], [address] [place] [address], [id number] 4 12:07:45 urinalysis, dipstick 2023 024 [email or web address], [address] [place] [address], [phone] 4 12:04:04 culture, urine 2023 024 [email or web address], [address] [place] [address], [facility], [place], [address], 4 15:18:20 Referral None recorded. Procedures None recorded. Surgeries None recorded. Imaging electrocard iogram 2024 025 [email or web address] [facility], [address] [place] [address], [phone] 5 22:30:04 Medication Orders cefpodoxime 200 mg tablet 2023 024 [facility]/Pharmacy #[id number], [address] [place], [address], 4 12:04:08 loperamide 2 mg tablet 2023 024 [email or web address] 0 [facility]/Pharmacy #[id number], [address] [place], [address], 4 13:09:24 Anti-Diarrh eal (loperamide ) [address] [facility]/Pharmacy #[id number], [address] [place], [address], 13:09:29 Patient TargetsNo targets recorded. Patient InstructionsNo instructions recorded. Reason for Referral None Reported. Results Created Date Observation Date Name Description Value Unit Range Abnormal Flag Note LastModifiedBy Organization Detail LastModifiedTime 01/13/20 24 01/13/2024 CULTU RE, URINE , ROUTI NE culture, urine, routine SEE NOTE CULTU RE, URINE , ROUTI NE Micro Numbe r: [id number] Test Statu s: Final Speci men [...] CLIEN T SERVI ROSEMARY. PHONE NUMBE R: [phone] Not Available [facility] [address], [place], [address], 01/13/2024 15:18:20 04/20/20 24 04/20/2024 rapid flu (A+B) Flu negati ve Not Available [facility] - [facility] [address] [place] [address], [phone] 04/20/2024 12:07:30 04/20/20 24 04/20/2024 rapid SARS CoV 2 Ag, QL IA, respi rator y speci men rapid SARS CoV 2 Ag, QL IA, respiratory specimen negati ve Not Available [facility] [address] [place] [address], [phone] 04/20/2024 12:07:24 11/19/19 25 11/18/2024 rapid strep group A, throa t Strep negati ve Not Available [facility] [address] [place] [address], [phone] 11/18/2024 22:28:50 0711/18/2024 bulmaro [email or web address] am No observ ation record ed. [email or web address] [address], [place], [address] 11/18/2024 22:29:57 Result Notes None recorded. Medical Equipment None [...] Available No t Available Vitals Date Recorded Systolic And Diastolic Provider Name and Address Organization Details Last Updated DateTime 09/06/2023 124/79 mm[Hg] Adriano Esparza [address] [facility],[address], [place], [address], [place] [facility] 09/06/2023 13:02:08 Date Recorded Body weight Heart rate Respiratory rate Body temperature Oxygen saturation Oxygen saturation in Arterial blood by Pulse oximetry Body height Provider Name and Address Organization Details Last Updated DateTime 4 44487.8 g 66 /min 14 /min 98.4 [degF] 100 % 100 % 167.64 cm Not Available [facility] production 12:58:45 Date Recorded Respiratory rate Oxygen saturation Oxygen saturation in Arterial blood by Pulse oximetry Body height Body weight Heart rate Body temperature Systolic And Diastolic Provider Name and Address Organization Details Last Updated DateTime 5 19 /min 100 % 100 % 170.18 cm 31610.7 2 g 66 /min 98.5 [degF] 126/72 mm[Hg] Not Available [facility] - production 5 11:39:58 Date Recorded Respiratory rate Body temperature Body weight Heart rate Body height Oxygen saturation Oxygen saturation in Arterial blood by Pulse oximetry Systolic And Diastolic Provider Name and Address Organization Details Last Updated DateTime 4 20 /min 98.3 [degF] 92980.7 2 g 70 /min 167.64 cm 95 % 95 % 140/90 mm[Hg] Not Available [facility] - production 4 12:06:16 Date Recorded Heart rate Body weight Respiratory rate Body temperature Oxygen saturation Oxygen saturation in Arterial blood by Pulse oximetry Body height Systolic And Diastolic Provider Name and Address Organization Details Last Updated DateTime 4 80 /min 38568.6 g 14 /min 98.4 [degF] 98 % 98 % 157.48 cm 156/95 mm[Hg] Not Available [facility] - production 4 11:59:34 Date Recorded Body temperature Respiratory rate Heart rate Oxygen saturation Oxygen saturation in Arterial blood by Pulse oximetry Systolic And Diastolic Provider Name and Address Organization Details Last Updated DateTime 4 98.5 [degF] 16 /min 71 /min 97 % 97 % 145/83 mm[Hg] Not Available [facility] - production 4 11:07:16 Social History None recorded. Functional Status None recorded. Mental Status None recorded. Family History Nothing Reported. Medical History No medical history recorded. Past Encounters Encounter ID Performer Location Encounter Start Date Encounter Closed Date Diagnosis/Indication Diagnosis SNOMED-CT Code Diagnosis ICD10 Code Diagnosis IMO Codes Diagnosis Note [id number] Nakita Condon MD Main - [facility] [address] [place] [phone] 04/23/2023 20:56:48 04/25/2023 12:36:01 Headache 30332608 R51.9 [id number] Andrew Cavazos MD Main - [facility] [address] [place] [phone] 06/12/2023 14:18:29 06/13/2023 10:54:21 Viral upper respiratory tract infection 833634173 J06.9 [id number] Paulina Sparks MD Main - [facility] [address] [place] [id number] 08/27/2023 19:14:51 08/29/2023 11:44:17 Diarrhea 94307369 R19.7 [id number] Billie Hunt MD Main - [facility] [address] [place] [id number] 09/06/2023 12:58:43 09/06/2023 17:35:55 Diarrhea 12699650 R19.7 Patient is eating and drinking well, [...] and vegetables -advised to stay well-hydra sydnie [id number] Jasvir Schaefer MD Main - [facility] [address] [place] [id number] 12/01/2023 12:06:14 12/01/2023 18:14:08 Viral upper respiratory tract infection [id number] J06.9 [id number] Andrew Cavazos MD Main - [facility] [address] [place] [phone] 01/10/2024 11:59:31 01/10/2024 17:47:10 Urinary symptoms [id number] R39.9 [id number] Nakita Condon MD Main - [facility] [address] [place] [phone] 04/20/2024 11:07:14 04/23/2024 20:40:04 Viral syndrome [id number] B34.9 [id number] Estrella Carlos MD Main-[facility] [address] [phone] 11/18/2024 11:39:47 11/19/2024 13:44:14 Viral pharyngitis 0887490 J02.9 [id number] 73 year old male being evaluated for 1 week of sore throat, and a sensation of a fast heart rate. Patient afebrile, without nasal congestion , sore throat or cough. Patient with a sore throat but tolerating PO. Exam notable for normal vital signs, clear lungs, POC strep negative, EKG sinus. Presentati on consistent with likely viral pharyngiti s, without impairment in PO intake. Continue supportive care, safe to monitor symptoms at home. FU outpatient team if symptoms worsen or persist. I have reviewed and agree with the assessment and plan as documented by the mentally impaired teacher. I provided real-time medical direction for this encounter and was immediatel y available to provide additional phone-base d assistance as needed. We discussed the diagnostic uncertaint y of home visits and associated risks. We discussed the need to seek care urgently/e mergently in the setting of any new or worsening symptoms. Health Concerns Section Related Observation LastModified by Organization Detai ls LastModified Time None Recorded Concern Status LastModified by Organization Details LastModified Time None Recorded Advance Directives Directive None Recorded Payers Insurance Date Sequence Insurance Name Policy Number Policy Cao Covered Member ID Cao Member ID Guarantor Name 11/18/2024 1 [facility] - DOS ON OR AFTER 2022 - DUAL ELIGIBLE - HALF-WAY OPTIONS AND ONE CARE (MEDICARE REPLACEMENT/ADV ANTAGE - HMO) Tobi Epps [id number] Tobi Epps Notes Date Note Type Note Provider Name and Address Organization Details Recorded Time 09/06/2023 text/html ROS as noted in the HPI CRC Nurse Triage Notes (Emerita Cho): Reason For Request: Pt reporting being seen by [facility] 10 days ago but is still experiencing diarrhea/abdominal pain Chief Complaints: Abdominal Pain, Diarrhea PMH: Hypertension, Heart Disease Allergies: No Known Comments: Member calling in to place a referral, verified via name, and address. [facility], plan was to observe [...] and drinking well he often goes to [place] restaurant or has vegetable soup and rice. He is no longer taking polyethylene glycol. Patient was seen on 08/26 his exam showed no acute distress vital signs were stable he was afebrile-the stool is intermittently liquid............... ..................... ..................... ..................... ..................... ..................... ..................... . Pediatric Oncology Nurse Note From Seamus Aragon: Patient conscious alert [...] Patient walks with a steady even gait. [facility] orders loperimide 4 mg PO and will RX more to the patient s local pharmacy.Red flags and pt education discussed BRAT diet discussed. ..................... ..................... ..................... ..................... ..................... ..................... ............... Disposition: Fulfilled Billie Hunt MD [address] [facility],[address], [place], [address], [facility] 09/06/2023 13:30:29 12/01/2023 text/html ROS as noted in the HPI CRC Nurse Triage Notes (Josias Whitehead): Reason For Request: Pt reporting a cold, sore throat, headache, feverish, partial weakness>symptoms going on 4 days Chief Complaints: Cough, Headache, Fever/Chills PMH: Hypertension, Heart Disease Other Allergies: NKA Comments: Explosive Ordnance Manager verified the member's name//address and phone number. [...] ..................... ..................... ..................... ..................... ..................... ..................... ............... Pediatric Oncology Nurse Note From Raven Gonzales: Pt chief complaint [...] tinge to the back of the area. [facility] consulted Pt educated on the medications including their effects and dangers, However pt is informed he may continue taking them as directed.Pt educated on re flag s&s and instructed to call emergency services if any present. ..................... ..................... ..................... ..................... ..................... ..................... ............... Disposition: Fulfilled Jasvir Schaefer MD [address] [place] [address],[address], [place], [phone] 12/01/2023 12:27:00 01/10/2024 text/html ROS as noted in the HPI This was a supervised home visit with mentally impaired teacher Seamus Aragon. [facility] Nurse Triage Notes (Brianda Santos): Reason For Request: UTI Chief Complaints: UTI/Pyelonephritis PMH: Hypertension, Heart Disease Allergies: No Known Comments: Explosive Ordnance Manager verified the member's name//address and phone number. [...] s/s and seek emergency treatment if needed Pediatric Oncology Nurse Organization Information for Seamus Aragon Legal Name: [facility] Transportation Address: [address] [place] [address], [place] [address], Marine Machinist: Kodi FLANAGAN No.: [id number] Pediatric Oncology Nurse POC Test Results from Seamus Aragon Urine Dipstick (11:39:00) Urine leukocytes: + DARCI Urine nitrites: - NIT Urine urobilinogen: 0.2 URO Urine protein: 30 PRO Urine pH: 5.0 pH Urine blood: - BLO Urine specific gravity: 1.015 SG Urine ketones: 15+ KET Urine bilirubin: - TOBIN Urine glucose: - GLU ..................... ..................... ..................... ..................... ..................... ..................... ............... Pediatric Oncology Nurse Note From Seamus Aragon: Patient alert and oriented, answers the door, walking evenly. Patient complains of lower, abdominal pain, sharp, noticed a week ago. Patient also states it hurts to urinate. Patient denies burning urination, increase frequency, CVA tenderness, history of UTIs, nausea, vomiting, diarrhea, or any other pain or complaints. Patient denies black or stool. Patient reports normal appetite. Patient denies any other pain or complains.[place] warm, dry, secondary exam unremarkable abdomen soft, soft, non-tender. Extremities unremarkable, no increased breathing noted. UA dip values to [facility]. [facility] orders antibiotic to patients, local pharmacy, culture to [facility],. Patient demonstrates understanding of care and plan. [facility] Lab Orders: urinalysis, dipstick: Performed Comment: bright dark yellow, clear no sediment no odor ..................... ..................... ..................... ..................... ..................... ..................... ............... Disposition: Fulfilled Andrew Cavazos MD [address] [facility],[address], [place], [address], [facility] 01/10/2024 13:34:01 04/20/2024 text/html CRC Nurse Triage Notes (Josias Whitehead - YASIR): Denies: Increased work of breathing/labored with or without fever Unable to speak in full sentences without distress Needs to sleep sitting up, can t catch breath Shortness of breath in setting of confusion Cough Chief Complaints: Headache, Joint pain/swelling PMH: Hypertension, Coronary Artery Disease Comments: Explosive Ordnance Manager verified the Pt.'s name//address and phone number. [...] medication with no relief. Wellness visit requested. Pediatric Oncology Nurse Organization Information for Palmer Berry Business Legal Name: [employer]. Address: [address] [place] [address], Marine Machinist: Fitz Sarabia MD [facility] No.: [id number] Pediatric Oncology Nurse POC Test Results from Palmer Berry Rapid COVID antigen (11:04:17) COVID: - Attachments uploaded as part of this test result can be found under Documents section. Rapid influenza antigen (11:04:18) Flu: - Attachments uploaded as part of this test result can be found under Documents section. ..................... ..................... ..................... ..................... ..................... ..................... ............... Pediatric Oncology Nurse Note From Palmer Berry: Was dispatched for [...] for Covid, and the flu, both negative. [facility] was contacted, [facility] believes the PT has a common cold that is going around and instructed the PT to treat at home with Tylenol, cough medication, and nasal decongestion. PT understood. Crew cleared. ..................... ..................... ..................... ..................... ..................... ..................... ............... [facility] Consulted: Nakita Condon ..................... ..................... ..................... ..................... ..................... ..................... ............... Disposition: Camron Nakita Condon MD [address] [facility],[address], [place], [address], [facility] 04/20/2024 12:28:37 11/18/2024 text/html CRC Nurse Triage Notes (Simran Enamorado): Reason For Request: Patient's chest is beating hard, and feels webbing tacker his throat, and can't sleep well. Denies: Increased work of breathing/labored with or without fever Unable to speak in full sentences without distress Discoloration of skin -cyanosis Needs to sleep sitting up, can t catch breath Shortness of breath in setting of confusion Cough, fever greater than 2 days Lower extremity swelling History of asthma, increased use of inhaler COPD COVID Exposure Sputum increase Cough Shortness of breath with exertion Pain with inspiration Chief Complaints: Fever, Common Cold PMH: Hypertension, Coronary Artery Disease PMH Reviewed at 11/18/2024 Allergies Reviewed at 11/18/2024 10:46 Comments: 73 y.o male complains of Fever, Breathing Problems patient self referring Patient states symptoms started over the weekend He hasn't taken his temperature but states he feels hot and has chills. he feels like his heart is beating faster than normal. denies any sweating today or body aches. denies any dizziness lightheadedness or chest pain denies any coughing endorses nasal congestion and sneezing. He states he has also had an itching on his scalp that has been keeping him up at night, the itching seems to migrate to other parts of the body denies any rashes. denies any kidney issues and denies being on any blood thinners Requesting insted visit as he does not want to use the ER at all. I provided information on the mobile health provider response time and advised the patient and/or caregiver to monitor reported signs and symptoms. I discussed the warning signs of when to seek emergency care. Pediatric Oncology Nurse Organization Information for Raven Gonzales HERIBERTO Business Legal Name: [facility] Address: [address] [place] [address], [place] [address], Marine Machinist: Kodi FLANAGAN No.: [id number] Pediatric Oncology Nurse POC Test Results from [facility] - HERIBERTO EKG (11:18:06) EKG test performed. Attachments uploaded as part of this test result can be found under Documents section. Rapid strep test (11:18:11) Strep: - Attachments uploaded as part of this test result can be found under Documents section. EKG (11:18:06) - This test has been updated by the mentally impaired teacher, Raven Gonzales at (11/18/2024 12:02:42). The changes are marked in bold. EKG test performed. Attachments uploaded as part of this test result can be found under Documents section. ..................... ..................... ..................... ..................... ..................... ..................... ............... Pediatric Oncology Nurse Note From Raven Gonzales: Pt chief complaint today of cold/ flu symptoms as well as increased heart rate. Pt state that all signs and symptoms have been occurring for approx 1 week prior to [facility] arrival at scene today however he does [...] strep test take and noted to be negative. POC 12 lead ecg shows sinus aracely with no diagnostic markers for stemi activity. Pt is fully caox4 with a gcs of 15. [facility] Estrella Carlos consulted. Pt is informs of findings. Pt is told to contact his pcp at earliest convenience for potential follow up. Pt and family are educated more flag S&S and told to contact emergency services if any present. ..................... ..................... ..................... ..................... ..................... ..................... ............... [facility] Consulted: Estrella Carlos ..................... ..................... ..................... ..................... ..................... ..................... ............... Disposition: Camron Carlos MD [address] [facility],[address], [place], [address], [employer] MAKAYLA 11/18/2024 22:33:10
--- OUTSIDE RECORDS SUMMARY | 2025-02-20 07:15 | XMS_ITS | Clinical Summary ---
Author Organization [facility] Address [address] [place] [address] Care Team Providers Care Fork Lift Technician Name Role Phone Dylan Shabazz MD Primary Care Provider [phone] Allergies No known active allergies Medications amLODIPine [...] of 2) 2002 COVID-19 Vaccine (3 - 2024-2 6 season) 2024 02/10/2022, 04/26/2021 Influenza (#1) 2024 02/02/2022, 04/07/2021, [...] complete this topic Zoster (Zostavax) Discontinued Insurance [facility] ONE CARE Care Teams Fork Lift Technician Relationship Specialty Start Date End Date Dylan Shabazz MD [address] [place] [address] PCP - General Internal Medicine 11/14/19
--- OUTSIDE RECORDS SUMMARY | 2025-02-20 07:15 | XMS_ITS | Clinical Summary ---
Author Organization [facility] Address [address] [place] [address] Care Team Providers Care Kettle Firer Name Role Phone Dylan Shabazz Primary Care Provider [phone] Allergies No known active allergies Medications amLODIPine (NORVASC) 10 mg tablet Take 10 mg by mouth once a day. 2 Active simvastatin (ZOCOR) 20 mg tablet Take 20 mg by mouth nightly. 2 Active acetaminophen (TYLENOL) 325 mg tablet Take 2 tablets (650 mg total) by mouth every 6 hours as needed for pain. 30 tablet 2 Active losartan (COZAAR) 100 mg tablet Take [...] continue 7 days after return. 49 tablet 3 Active bacitracin zinc ointment Apply topically to the affected area 2 times a day. 120 g 5 Active ibuprofen (MOTRIN) 400 mg tablet Take 1 tablet (400 mg total) by mouth every 6 hours as needed for pain. 30 tablet 5 Active Active Problems No known active problems Encounters Date Type Department Care Team Description 12/23/2024 11:54 AM EDT - 12/23/2024 2:05 PM EDT Emergency [facility] Emergency Department [address] [place] [address] Seamus Tejada MD Right ear pain (Primary Dx) Discharge Disposition: Home or Self Care () 12/22/2024 8:13 AM EDT - 12/22/2024 9:34 AM EDT Emergency [facility] Emergency Department [address] [place] [id number] Jasvir Joaquin MD Right ear pain (Primary Dx) Discharge Disposition: Home or Self Care () from Last 3 Months Immunizations Immunization Administration Dates Next Due Hepatitis A Vaccine, Adult Dosage 05/18/2023, Influenza, High Dose Seasona l, Preservative Free (FLUZONE HIGH-DOSE) 01/22/2019 Influenza, High Dose Seasonal, Quadrivalent PF 0 01/09/2023,02/02/2022 Influenza, Injectable, Quadrivalent, Preservativ e Free 04/07/2021 Pneumococcal conjugate PCV20 ,polysaccharide [id number] conjugate, adjuvant, PF (Prevnar 20) 09/23/2022 Poliovirus [...] Packs/Day Years Used Date Smoking Tobacco: Never Smokeless Tobacco: Never Tobacco Cessation:Counseling Given: Not Answered [...] Sign Reading Time Taken Comments Blood Pressure 170/82 12/23/2024 1:55 PM EDT Pulse 75 12/23/2024 1:55 PM EDT Temperature 36.3 C (97.3 F) 12/23/2024 11:36 AM EDT Respiratory Rate 18 12/23/2024 1:55 PM EDT Oxygen Saturation 99% 12/23/2024 1:55 PM EDT Inhaled Oxygen Concentration - - Weight 72.6 kg (160 lb) 12/23/2024 11:36 AM EDT Height 170.2 cm (5' 7 ) 12/23/2024 11:36 AM EDT Body Mass Index 25.06 12/23/2024 11:36 AM EDT Plan of Treatment Upcoming Encounters Date Type Department Care Team (Late st Contact Info) Description 05/07/2025 9:30 AM EST Appointment [facility] [address] [place] [phone] Development Scientist: Maritza Leone, TRAV Hubbard [address] [place] [address] [id number] Health Maintenance Due Date Last Done Comments Cologuard 1952 Colon Cancer Screening 1950 Colonoscopy 1950 FOBT / Fit Test 1952 Hepatitis C Screening 1950 Sigmoidoscopy 1952 Alcohol/Substance Use Screening 04/24/2024 Depression Screening and Follow-Up 04/24/2024 Health Care Proxy Review 04/24/2024 Social Drivers of Health Annual Screening 04/24/2024 COVID-19 Vaccine ( season) 2024 07/17/2024, 01/04/2024, 10/01/2023, Additional history exists Influenza Vaccine (#1) 2024 , 01/09/2023, 02/02/2022, Additional history exists Basic Metabolic Panel 12/18/2025 12/18/2024 , 10/15/2023, 04/08/2021, Additional history exists DTaP,Tdap,and Td Vaccines (3 - Td or Tdap) 02/20/2034 02/21/2024, 02/10/2022 Pneumococcal Vaccine: 50+ Years Completed 09/23/2022 RSV Vaccine (60+ years old and patients) Completed 02/09/2023 Zoster Vaccines Completed 12/13/2023, 10/07/2022 Hepatitis B Vaccines Aged Out No long er eligible based on patient's age to complete this topic Procedures * Due to [place] MaPS law, this organization might not be sharing negative HIV tests. Procedure Name Priority Date/Time Associated Diagnosis Comments WICK TOP, URN Routine 12/18/2024 12:35 PM EDT Secondary hypertension UA/CULTURE REFLEX Routine 12/18/2024 12: 35 PM EDT Secondary hypertension URINALYSIS W/REFLEX TO MICROSCOPIC & CULTURE Routine 12/18/2024 12:35 PM EDT Secondary hypertension TSH Routine 12/18/2024 12:35 PM EDT Secondary hypertension HEPATIC FUNCTION PANEL Routine 12/18/2024 12:35 PM EDT Secondary hypertension HEMOGLOBIN A1C Routine 12/18/2024 12:35 PM EDT Secondary hypertension BASIC METABOLIC PANEL Routine 12/18/2024 12:35 PM EDT Secondary hypertension CBC Routine 12/18/2024 12:35 PM EDT Secondary hypertension MICROALBUMIN, RANDOM URINE WITH CREATININE Routine 12/18/2024 12:35 PM EDT Secondary hypertension LIPID PANEL Routine 12/18/2024 12:35 PM EDT Secondary hypertension from Last 3 Months Results * Due to [place] MaPS law, this organization might not be sharing negative HIV tests. * Wick Top, Urine (12/18/2024 12:35 PM EDT) Extra Tube Hold for add-ons. 12/18/2024 5:05 PM EDT [facility] Comment:Auto resulted. Urine Urine specimen collection, clean catch / Unknown Non-Blood Collection / Unknown 12/18/2024 12:35 PM EDT 12/18/2024 1:19 PM EDT Dylan Shabazz LAB URINE ORDERABLES Final Result [facility] [address] [place] [address], [place] * (ABNORMAL) Urinalysis W/Reflex to Microscopic & Culture (12/18/2024 12:35 PM EDT) Color, Urine Yellow Colorless, Light Yellow, Yellow, Dark Yellow 12/18/2024 1:36 PM EDT [facility] Clarity, Urine Clear Clear 12/18/2024 1:36 PM EDT [facility] Specific [place], Urine 1.024 <1.030 12/18/2024 1:36 PM EDT [facility] pH, Urine 6.0 4.6 - 8.0 12/18/2024 1:36 PM EDT [facility] Protein, Urine Trace(A) Negative 12/18/2024 1:36 PM EDT [facility] Glucose, Urine Normal Normal 12/18/2024 1:36 PM EDT [facility] Ketones, Urine Negative Negative 12/18/2024 1:36 PM EDT [facility] Bilirubin, Urine Negative Negative 12/18/2024 1:36 PM EDT [facility] Blood, Urine Negative Negative 12/18/2024 1:36 PM EDT [facility] Nitrite, Urine Negative Negative 12/18/2024 1:36 PM EDT [facility] Urobilinogen, Urine Normal Normal 12/18/2024 1:36 PM EDT [facility] Leukocyte Esterase, Urine Negative Negative 12/18/2024 1:36 PM EDT [facility] WBC, Urine 2 0 - 2 /HPF 12/18/2024 1:36 PM EDT [facility] RBC, Urine <1 0 - 2 /HPF 12/18/2024 1:36 PM EDT [facility] Hyaline Casts, Urine 0 0 - 2 /LPF 12/18/2024 1:36 PM EDT [facility] Bacteria, Urine None Seen None /HPF /HPF 12/18/2024 1:36 PM EDT [facility] Mucus, Urine Rare /LPF 12/18/2024 1:36 PM EDT [facility] Urine Urine specimen collection, clean catch / Unknown Non-Blood Collection / Unknown 12/18/2024 12:35 PM EDT 12/18/2024 1:19 PM EDT us Dylan Shabazz LAB URINE ORDERABLES Final Result [facility] [address] [place] [address], * Microalbumin/Creatinine Urine, Random (12/18/2024 12:35 PM EDT) Microalbumin, Urine <2.0 mg/dL 12/18/2024 3:16 PM EDT [facility] Creatinine, Urine 310 22 - 328 mg/dL 12/18/2024 3:16 PM EDT [facility] Microalb/Creat Ratio, Random Urine 12/18/2024 3:16 PM EDT [facility] Comment: < 1.0 mcg/mgCr Microalbumin Reference Range: Normal <30 mcg/mg Creatinine Microalbuminuria 30-300 mcg/mg Creatinine Clinical Albuminuria >300 mcg/mg Creatinine Reference: ADA Guideline. Diabetes Care. 2003;27 (suppl 1) Urine Voided urine specimen / Unknown Non-Blood Collection / Unknown 12/18/2024 12:35 PM EDT 12/18/2024 1:19 PM EDT Dylan Shabazz LAB URINE ORDERABLES Final Result [facility] [address] [place] [address], * (ABNORMAL) CBC (12/18/2024 12:35 PM EDT) WBC 3.8 3.8 - 10.8 10*3/uL 12/18/2024 1:06 PM EDT [facility] RBC 4.44 4.20 - 5.80 10*6/uL 12/18/2024 1:06 PM EDT [facility] Hemoglobin 13.5 13.2 - 17.1 g/dL 12/18/2024 1:06 PM EDT [facility] Hematocrit 37.8(L) 38.5 - 50.0 % 12/18/2024 1:06 PM EDT [facility] MCV 85.1 80.0 - 100.0 fL 12/18/2024 1:06 PM EDT [facility] MCH 30.4 27.0 - 33.0 pg 12/18/2024 1:06 PM EDT [facility] MCHC 35.7 32.0 - 36.0 g/dL 12/18/2024 1:06 PM EDT [facility] RDW 12.7 11.0 - 15.0 % 12/18/2024 1:06 PM EDT [facility] Platelets 294 140 - 400 10*3/uL 12/18/2024 1:06 PM EDT [facility] MPV 8.7 7.5 - 12.5 fL 12/18/2024 1:06 PM EDT [facility] Blood Structure of peripheral vein / Unknown Venipuncture / Unknown 12/18/2024 12:35 PM EDT 12/18/2024 12:58 PM EDT Dylan Gardnernathan LAB BLOOD ORDERABLES Final Result Performing Organization Address City/[facility]/ZIP Co de Phone Number [facility] [address] [place] [address], * TSH (12/18/2024 12:35 PM EDT) TSH 1.560 0.280 - 3.890 uIU/mL 12/18/2024 1:42 PM EDT [facility] Blood Structure of peripheral vein / Unknown Venipuncture / Unknown 12/18/2024 12:35 PM EDT 12/18/2024 12:58 PM EDT Dylan Seema MartinezMele LAB BLOOD ORDERABLES Final Result Performing Organization Address [facility] Co de Phone Number [facility] [address] [place] [address] * (ABNORMAL) Hemoglobin A1c (12/18/2024 12:35 PM EDT) Hemoglobin A1C 7.5(H) <5.7 % 12/18/2024 10:13 PM EDT [employer] [facility] Comment: For someone without known diabetes, a hemoglobin A1c value of 6.5% or greater indicates that they may have diabetes and this should be confirmed with a follow-up test. For someone with known diabetes, a value <7% indicates that their diabetes is well controlled and a value greater than or equal to 7% indicates suboptimal control. A1c targets should be individualized based on duration of diabetes, age, comorbid conditions, and other considerations. Currently, no consensus exists regarding use of hemoglobin A1c for diagnosis of diabetes for children. eAG (MG/DL) 169 mg/dL 12/18/2024 10:13 PM EDT [employer] eAG (MMOL/L) 9.3 mmol/L 12/18/2024 10:13 PM EDT [employer] [facility] Blood Structure of peripheral vein / Unknown Venipuncture / Unknown 12/18/2024 12:35 PM EDT 12/18/2024 12:58 PM EDT Narrative ANTONIO GOMES - 12/18/2024 10:13 PM EDT [facility] Received Date: Dylan Shabazz LAB BLOOD ORDERABLES Final Result [facility] [address] [facility] [address], [place] [address], [employer] [facility] [address] [facility] [address], [place] [address], * Hepatic Function Panel (12/18/2024 12:35 PM EDT) Total Protein 7.9 6.0 - 8.0 g/dL 12/18/2024 1:42 PM EDT [facility] Albumin 4.8 3.5 - 5.2 g/dL 12/18/2024 1:42 PM EDT [facility] Globulin, Total 3.1 2.1 - 4.2 g/dL 12/18/2024 1:42 PM EDT [facility] Bilirubin, Total 1.0 0.2 - 1.2 mg/dL 12/18/2024 1:42 PM EDT [facility] Bilirubin, Direct 0.4 <=0.4 mg/dL 12/18/2024 1:42 PM EDT [facility] Alkaline Phosphatase 52 35 - 129 U/L 12/18/2024 1:42 PM EDT [facility] AST 16 10 - 40 U/L 12/18/2024 1:42 PM EDT [facility] ALT 15 10 - 40 U/L 12/18/2024 1:42 PM EDT [facility] Bilirubin, Indirect 0.60 <=0.70 mg/dL 12/18/2024 1:42 PM EDT [facility] A/G Ratio 1.5 1.5 - 3.0 12/18/2024 1:42 PM EDT [facility] Blood Structure of peripheral vein / Unknown Venipuncture / Unknown 12/18/2024 12:35 PM EDT 12/18/2024 12:58 PM EDT us Dylan Shabazz LAB BLOOD ORDERABLES Final Result [facility] [address] [place] [address], [place] * (ABNORMAL) Lipid panel (12/18/2024 12:35 PM EDT) Cholesterol 151 <=199 mg/dL 12/18/2024 1:42 PM EDT [facility] Triglycerides 156(H) <=149 mg/dL 12/18/2024 1:42 PM EDT [facility] Cholesterol, HDL 41 40 - 59 mg/dL 12/18/2024 1:42 PM EDT [facility] Cholesterol, Non-HDL 110 mg/dL 12/18/2024 1:42 PM EDT [facility] LDL Cholesterol 79 <100 mg/dL 12/18/2024 1:42 PM EDT [facility] Comment:LDL-C is calculated using the Friedewald calculation. VLDL 31.2 mg/dL 12/18/2024 1:42 PM EDT [facility] Cholesterol/HDL Ratio 3.7 <5.0 12/18/2024 1:42 PM EDT [facility] Blood Structure of peripheral vein / Unknown Venipuncture / Unknown 12/18/2024 12:35 PM EDT 12/18/2024 12:58 PM EDT Narrative [facility] - 12/18/2024 1:42 PM EDT Adult Treatment Panel III Guidelines of NCEP 2001 Category: Total Cholesterol (mg/dL) Desirable <200 Borderline High 200-239 High >=240 Category: LDL Cholesterol (mg/dL) Optimal <100 Near Optimal/Above Optimal 100-129 Borderline High 130-159 High 160-189 Very High >=190 Category: HDL Cholesterol (mg/dL) Low <40 High >=60 NCEP's Expert Panel on Blood Cholesterol in Children and Adolescents Category: Total Cholesterol (mg/dL) Desirable <170 Borderline High 170-199 High >=200 Category: LDL Cholesterol (mg/dL) Desirable <110 Borderline High 110-129 High >=130 us Dylan Shabazz LAB BLOOD ORDERABLES Final Result [facility] [address] [place] [id number], * (ABNORMAL) Basic Metabolic Panel (12/18/2024 12:35 PM EDT) NA 144 135 - 145 mmol/L 12/18/2024 1:42 PM EDT [facility] K 3.3(L) 3.5 - 5.3 mmol/L 12/18/2024 1:42 PM EDT [facility] Cl 104 98 - 107 mmol/L 12/18/2024 1:42 PM EDT [facility] CO2 26 22 - 32 mmol/L 12/18/2024 1:42 PM EDT [facility] BUN 15 7 - 23 mg/dL 12/18/2024 1:42 PM EDT [facility] Creatinine 0.86 0.60 - 1.30 mg/dL 12/18/2024 1:42 PM EDT [facility] Glucose 134(H) 65 - 99 mg/dL 12/18/2024 1:42 PM EDT [facility] Calcium 9.2 8.6 - 10.5 mg/dL 12/18/2024 1:42 PM EDT [facility] Anion Gap 14 5 - 15 12/18/2024 1:42 PM EDT [facility] eGFR >90 >=60 mL/min/1. 73m2 12/18/2024 1:42 PM EDT [facility] Comment:The estimated glomer [...] of Race in Diagnosing Kidney Disease . Blood Structure of peripheral vein / Unknown Venipuncture / Unknown 12/18/2024 12:35 PM EDT 12/18/2024 12:58 PM EDT Dylan Shabazz LAB BLOOD ORDERABLES Final Result [facility] [address] [place] [address], from Last 3 Months Insurance [employer] Care Teams Kettle Firer Relationship Specialty Start Date End Date Dylan Shabazz [address] [place] [id number] PCP - General Internal Medicine 07/05/19
[2025-02-20 07:46] LABS: Appearance Urine Clear; Glucose Urine UA >=1000 mg/dL (Negative); PH 6.5 (5.0-9.0); Specific Gravity - Urine 1.025 (1.005-1.025); UMIC TRIGGER UA YES
[2025-02-20 07:47] LABS: Hematocrit 36.5 % (42.0-52.0); Hemoglobin 13.1 g/dl (14.0-18.0); Mean Corpuscular HGB Conc 35.9 g/dl (31.0-36.0); Mean Corpuscular Hemoglobin 30.4 pg (27.0-33.0); Mean Corpuscular Volume 84.7 fL (80.0-98.0); NRBC Abs Auto 0.000 X10*3/uL (0.0-0.012); NRBC Pct Auto 0.0 /100WBC (0.0-0.2); Platelet Count 288 X10*3/uL (160-400); Red Blood Count 4.31 X10*6/uL (4.60-5.80); White Blood Count 3.5 X10*3/uL (4.8-10.8)
[2025-02-20 08:14] LABS: Alanine Aminotransferase 26 U/L (0-40); Albumin Level 4.8 g/dL (3.5-5.0); Alkaline Phosphatase 63 U/L (39-117); Anion Gap 12 (12-20); Aspartate Amino Transferase 20 U/L (5-37); Blood Urea Nitrogen 12 mg/dL (9-16); Calcium 8.9 mg/dL (8.4-10.2); Carbon Dioxide 28 mmol/L (22-29); Chloride 105 mmol/L (96-108); Cholesterol 150 mg/dL (<200); Estimated Glomerular Filt Rate > 60; HDL Cholesterol 35 mg/dL (>40); Potassium 3.7 mmol/L (3.3-5.1); Sodium 141 mmol/L (135-145); Total Protein 7.3 g/dL (6.5-8.0); Triglycerides 167 mg/dL (<150)
[2025-02-20 08:29] LABS: Thyroid Stimulating Hormone 2.19 uIU/mL (0.32-4.0)
[2025-02-20 08:50] LABS: Microalbum/Creatinine Ratio Ur 30.0 ug/mg cr (<30)
== END 2025-02-20 07:12 | disposition home or self-care (01) ==
LOC: HO.LAB 07:11
PROVIDERS: PCP Internal Medicine; Visit Provider Internal Medicine
DX: Z13.89 Encounter for screening for other disorder (principal)
CPT/HCPCS: 36415; 80048; 80061; 80076; 81001; 82043; 82570; 83036; 84443; 85027; 99212

== ENCOUNTER 2025-02-20 08:46 | Outpatient (AMB) | payer OTHER, SELFPAY ==
--- OUTSIDE RECORDS SUMMARY | 2025-02-20 09:41 | XMS_ITS | Continuity of Care Document ---
Author Name [facility], Medical Address [address] [place] [address] Organization Unknown Address [address] [place] [address] Medications No known medications Problems No known problems
--- OUTSIDE RECORDS SUMMARY | 2025-02-20 09:41 | XMS_ITS | Data Portability ---
Author Organization [employer] [facility], [place] [facility] [facility] Address [address] [place] [phone] Care Team Providers Care Vulcan Crewmember Name Role Phone HIM CCA OTHER Assessment Encounter Date Assessment Date Assessment LastModified by Organization Details LastModified Time 09/06/2023 09/06/2023 I provided real -time medical direction via phone for this encounter, and was available for additional phone based assistance as needed. I have reviewed and agree with the Assessment and Plan as documented by the Rn Advice. We discussed the diagnostic uncertainty of home [...] verbalized understanding of instructions to the medic [email or web address] Not available 09/06/2023 13:06:49 12/01/2023 12/01/2023 As noted, we were called to see this patient regarding concerns of upper respiratory symptoms Evaluation in the field was performed by my blogs manager colleague, as noted above, I provided real-time direction and supervision for this visit. The evaluation revealed the same Impression: 72yo/m referred to [facility] for several days of viral respiratory symptoms [...] particularly any acute worsening symptoms or illness [email or web address] Not available 12/01/2023 12:14:32 01/10/2024 01/10/2024 I have reviewed and agree with the assessment and plan as documented by the blogs manager. I provided real time medical direction for this encounter and was immediately available to provide additional phone based assistance as needed. History as noted by blogs manager. Pt with history of DM2, HTN. Pt [...] consistent with UTI. Urine culture sent to [facility]. Diagnosis of UTI discussed with pt. Pt [...] Assessment and Plan as documented by the Rn Advice. Patient given the opportunity to ask questions. Our service contacted for an assessment of: viral symptoms As per above, patient with an approx week worth of headache nasal congestion and myalgias arthralgias. Positive sick contacts. Taking ixxc-cja-ulkvuyy medications with a positive trajectory. Wanted to be tested for viral illnesses. Denies chest pain shortness of breath. Per blogs manager on the scene, vital signs are stable [...] rapid strep group A, throat 2024 025 [email or web address] [facility], [address] [place] [address], [phone] 5 22:30:04 rapid SARS CoV 2 Ag, QL IA, respiratory specimen [address], [address] [place] [address], [phone] 4 12:07:44 rapid flu (A+B) [email or web address], [address] [place] [address], [phone] 4 12:07:45 urinalysis, dipstick 2023 024 [email or web address] [facility], [address] [place] [address], [id number] 4 12:04:04 culture, urine 2023 024 [facility], [address] [place] [address], [facility], [place], [address], 4 15:18:20 Referral None recorded. Procedures None recorded. Surgeries None recorded. Imaging electrocard iogram 2024 025 [facility], [address] [place] [address], [id number] 5 22:30:04 Medication Orders cefpodoxime 200 mg tablet 2023 024 [facility]/Pharmacy #[id number], [address] [place], [address], 4 12:04:08 loperamide 2 mg tablet 2023 024 [email or web address] [facility]/Pharmacy #[id number], [address] [place], [address], 4 13:09:24 Anti-Diarrh eal (loperamide ) 2 mg tablet 2023 024 [facility]/Pharmacy #[id number], [address] [place], [address], 13:09:29 Patient TargetsNo targets recorded. Patient InstructionsNo instructions recorded. Reason for Referral None Reported. Results Created Date Observation Date Name Description Value Unit Range Abnormal Flag Note LastModifiedBy Organization Detail LastModifiedTime 01/13/20 24 01/13/2024 CULTU RE, URINE , ROUTI NE culture, urine, routine SEE NOTE CULTU RE, URINE , ROUTI NE Micro Numbe r: [id number] Test Statu s: Final Speci men [...] CLIEN T SERVI ROSEMARY. PHONE NUMBE R: [phone] Not Available [facility] [address], [place], [address], 01/13/2024 15:18:20 04/20/20 24 04/20/2024 rapid flu (A+B) Flu negati ve Not Available [facility] [address] [place] [address], [id number] 04/20/2024 12:07:30 04/20/20 24 04/20/2024 rapid SARS CoV 2 Ag, QL IA, respi rator y speci men rapid SARS CoV 2 Ag, QL IA, respiratory specimen negati ve Not Available [facility] [address] [place] [address], [phone] 04/20/2024 12:07:24 11/19/19 25 11/18/2024 rapid strep group A, throa t Strep negati ve Not Available [facility] [address] [place] [address], [phone] 11/18/2024 22:28:50 0711/18/2024 bulmaro [email or web address] am No observ ation record ed. [email or web address] [address], [place], [phone] 11/18/2024 22:29:57 Result Notes None recorded. Medical [...] DateTime 09/06/2023 124/79 mm[Hg] Adriano Esparza [address] [facility],[address], [place], [address], [place] - [employer] 09/06/2023 13:02:08 Date Recorded Body weight Heart rate Respiratory rate Body temperature Oxygen saturation Oxygen saturation in Arterial blood by Pulse oximetry Body height Provider Name and Address Organization Details Last Updated DateTime 4 81519.8 g 66 /min 14 /min 98.4 [degF] 100 % 100 % 167.64 cm Not Available [facility] - production 12:58:45 Date Recorded Respiratory rate Oxygen saturation Oxygen saturation in Arterial blood by Pulse oximetry Body height Body weight Heart rate Body temperature Systolic And Diastolic Provider Name and Address Organization Details Last Updated DateTime 5 19 /min 100 % 100 % 170.18 cm 86853.7 2 g 66 /min 98.5 [degF] 126/72 mm[Hg] Not Available [facility] - production 5 11:39:58 Date Recorded Respiratory rate Body temperature Body weight Heart rate Body height Oxygen saturation Oxygen saturation in Arterial blood by Pulse oximetry Systolic And Diastolic Provider Name and Address Organization Details Last Updated DateTime 4 20 /min 98.3 [degF] 28603.7 2 g 70 /min 167.64 cm 95 % 95 % 140/90 mm[Hg] Not Available [facility] - production 4 12:06:16 Date Recorded Heart rate Body weight Respiratory rate Body temperature Oxygen saturation Oxygen saturation in Arterial blood by Pulse oximetry Body height Systolic And Diastolic Provider Name and Address Organization Details Last Updated DateTime 4 80 /min 72228.6 g 14 /min 98.4 [degF] 98 % 98 % 157.48 cm 156/95 mm[Hg] Not Available [facility] - production 4 11:59:34 Date Recorded Body temperature Respiratory rate Heart rate Oxygen saturation Oxygen saturation in Arterial blood by Pulse oximetry Systolic And Diastolic Provider Name and Address Organization Details Last Updated DateTime 4 98.5 [degF] 16 /min 71 /min 97 % 97 % 145/83 mm[Hg] Not Available [facility] - production 4 11:07:16 Social History None recorded. Functional Status None recorded. Mental Status None recorded. Family History Nothing Reported. Medical History No medical history recorded. Past Encounters Encounter ID Performer Location Encounter Start Date Encounter Closed Date Diagnosis/Indication Diagnosis SNOMED-CT Code Diagnosis ICD10 Code Diagnosis IMO Codes Diagnosis Note [id number] Nakita Condon MD Main - [facility] [address] [place] [phone] 04/23/2023 20:56:48 04/25/2023 12:36:01 Headache 31110259 R51.9 [id number] Andrew Cavazos MD Main - [facility] [address] [place] [phone] 06/12/2023 14:18:29 06/13/2023 10:54:21 Viral upper respiratory tract infection [id number] J06.9 [id number] Paulina Sparks MD Main - [facility] [address] [place] [phone] 08/27/2023 19:14:51 08/29/2023 11:44:17 Diarrhea 84291267 R19.7 [id number] Billie Hunt MD Main - [facility] [address] [place] [id number] 09/06/2023 12:58:43 09/06/2023 17:35:55 Diarrhea [id number] R19.7 Patient is eating and drinking well, [...] and vegetables -advised to stay well-hydra sydnie [id number] Jasvir Schaefer MD Main - [facility] [address] [place] [phone] 12/01/2023 12:06:14 12/01/2023 18:14:08 Viral upper respiratory tract infection [id number] J06.9 [id number] Andrew Cavazos MD Main - [facility] [address] [place] [phone] 01/10/2024 11:59:31 01/10/2024 17:47:10 Urinary symptoms [id number] R39.9 [id number] Nakita Condon MD Main - [facility] [address] [place] [id number] 04/20/2024 11:07:14 04/23/2024 20:40:04 Viral syndrome [id number] B34.9 [id number] Estrella Carlos MD Main-[facility] [address] [phone] 11/18/2024 11:39:47 11/19/2024 13:44:14 Viral pharyngitis 7096438 J02.9 [id number] 73 year old male being evaluated for [...] assessment and plan as documented by the blogs manager. I provided real-time medical direction for this [...] Cao Member ID Guarantor Name 11/18/2024 1 [facility] - DOS ON OR AFTER 2022 - DUAL ELIGIBLE - LONG-TERM OPTIONS AND ONE CARE (MEDICARE REPLACEMENT/ADV ANTAGE - HMO) Tobi Epps [id number] Tobi Epps Notes Date Note Type Note Provider Name and Address Organization Details Recorded Time 09/06/2023 text/html ROS as noted in the HPI [facility] Nurse Triage Notes (Emerita Cho): Reason For Request: Pt reporting being seen by [facility] 10 days ago but is still experiencing diarrhea/abdominal pain Chief Complaints: Abdominal Pain, Diarrhea PMH: Hypertension, Heart Disease Allergies: No Known Comments: Member calling in to place a referral, verified via name, and address. [facility], plan was to observe [...] and drinking well he often goes to [place] restaurant or has vegetable soup and rice. He is no longer taking polyethylene glycol. Patient was seen on 08/26 his exam showed no acute distress vital signs were stable he was afebrile-the stool is intermittently liquid............... ..................... ..................... ..................... ..................... ..................... ..................... . Rn Advice Note From Seamus Aragon: Patient conscious alert [...] Patient walks with a steady even gait. [facility] orders loperimide 4 mg PO and will RX more to the patient s local pharmacy.Red flags and pt education discussed BRAT diet discussed. ..................... ..................... ..................... ..................... ..................... ..................... ............... Disposition: Fulfilled Billie Hunt MD [address] [facility],[address], [place], [phone], [employer] [employer] 09/06/2023 13:30:29 12/01/2023 text/html ROS as noted in the HPI [facility] Nurse Triage Notes (Josias Whitehead): Reason For Request: Pt reporting a cold, sore throat, headache, feverish, partial weakness>symptoms going on 4 days Chief Complaints: Cough, Headache, Fever/Chills PMH: Hypertension, Heart Disease Other Allergies: NKA Comments: Senior Project Leader/Team Lead verified the member's name//address and phone number. [...] ..................... ..................... ..................... ..................... ..................... ..................... ............... Rn Advice Note From Raven Gonzales: Pt chief complaint [...] tinge to the back of the area. [facility] consulted Pt educated on the medications including their effects and dangers, However pt is informed he may continue taking them as directed.Pt educated on re flag s&s and instructed to call emergency services if any present. ..................... ..................... ..................... ..................... ..................... ..................... ............... Disposition: Fulfilled Jasvir Schaefer MD [address] [place] [address],[address], [place], [phone] [employer] 12/01/2023 12:27:00 01/10/2024 text/html ROS as noted in the HPI This was a supervised home visit with blogs manager Seamus Aragon. [facility] Nurse Triage Notes (Brianda Santos): Reason For Request: UTI Chief Complaints: UTI/Pyelonephritis PMH: Hypertension, Heart Disease Allergies: No Known Comments: Senior Project Leader/Team Lead verified the member's name//address and phone number. [...] s/s and seek emergency treatment if needed Rn Advice Organization Information for Seamus Aragon Legal Name: [facility] Address: [address] [place] [address], [place] [address], Cathead Worker: Kodi FLANAGAN No.: [id number] Rn Advice POC Test Results from Seamus Aragon Urine Dipstick (11:39:00) Urine leukocytes: + DARCI Urine nitrites: - NIT Urine urobilinogen: 0.2 URO Urine protein: 30 PRO Urine pH: 5.0 pH Urine blood: - BLO Urine specific gravity: 1.015 SG Urine ketones: 15+ KET Urine bilirubin: - TOBIN Urine glucose: - GLU ..................... ..................... ..................... ..................... ..................... ..................... ............... Rn Advice Note From Seamus Aragon: Patient alert and [...] appetite. Patient denies any other pain or complains.[place] warm, dry, secondary exam unremarkable abdomen soft, soft, non-tender. Extremities unremarkable, no increased breathing noted. UA dip values to [facility]. [facility] orders antibiotic to patients, local pharmacy, culture to [facility],. Patient demonstrates understanding of care and plan. [facility] Lab Orders: urinalysis, dipstick: Performed Comment: bright dark yellow, clear no sediment no odor ..................... ..................... ..................... ..................... ..................... ..................... ............... Disposition: Fulfilled Andrew Cavazos MD [address] [facility],[address], [place], [address], [employer] 01/10/2024 13:34:01 04/20/2024 text/html CRC Nurse Triage Notes (Josias Whitehead - YASIR): Denies: Increased work of breathing/labored with or without fever Unable to speak in full sentences without distress Needs to sleep sitting up, can t catch breath Shortness of breath in setting of confusion Cough Chief Complaints: Headache, Joint pain/swelling PMH: Hypertension, Coronary Artery Disease Comments: Senior Project Leader/Team Lead verified the Pt.'s name//address and phone number. [...] medication with no relief. Wellness visit requested. Rn Advice Organization Information for Palmer Berry Business Legal Name: [employer]. Address: [address] [place] [address], Cathead Worker: Fitz Sarabia MD [facility] No.: [id number] Rn Advice POC Test Results from Palmer Berry Rapid COVID antigen (11:04:17) COVID: - Attachments uploaded as part of this test result can be found under Documents section. Rapid influenza antigen (11:04:18) Flu: - Attachments uploaded as part of this test result can be found under Documents section. ..................... ..................... ..................... ..................... ..................... ..................... ............... Rn Advice Note From Palmer Berry: Was dispatched for [...] for Covid, and the flu, both negative. [facility] was contacted, [facility] believes the PT has a common cold that is going around and instructed the PT to treat at home with Tylenol, cough medication, and nasal decongestion. PT understood. Crew cleared. ..................... ..................... ..................... ..................... ..................... ..................... ............... [facility] Consulted: Nakita Condon ..................... ..................... ..................... ..................... ..................... ..................... ............... 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 Denies: [...] signs of when to seek emergency care. Rn Advice Organization Information for Raven Gonzales HERIBERTO Business Legal Name: [facility] Address: [address] [place] [address], [place] [address], Cathead Worker: Kodi FLANAGAN No.: [id number] Rn Advice POC Test Results from GonzalesRaven - HERIBERTO EKG (11:18:06) EKG test performed. Attachments uploaded as part of this test result can be found under Documents section. Rapid strep test (11:18:11) Strep: - Attachments uploaded as part of this test result can be found under Documents section. EKG (11:18:06) - This test has been updated by the blogs manager, Raven Gonzales at (11/18/2024 12:02:42). The changes are marked in bold. EKG test performed. Attachments uploaded as part of this test result can be found under Documents section. ..................... ..................... ..................... ..................... ..................... ..................... ............... Rn Advice Note From Raven Gonzales: Pt chief complaint today of cold/ flu symptoms as well as increased heart rate. Pt state that all signs and symptoms have been occurring for approx 1 week prior to [facility] arrival at scene today however he does [...] fully caox4 with a gcs of 15. [facility] Estrella Carlos consulted. Pt is informs of findings. Pt is told to contact his pcp at earliest convenience for potential follow up. Pt and family are educated more flag S&S and told to contact emergency services if any present. ..................... ..................... ..................... ..................... ..................... ..................... ............... [facility] Consulted: Estrella Carlos ..................... ..................... ..................... ..................... ..................... ..................... ............... Disposition: Camron Carlos MD [address] [facility],[address], [place], [address], [employer] MAKAYLA 11/18/2024 22:33:10
--- NOTE | 2025-02-20 10:27 | MHC.OFFVIS ---
Intake Visit Reasons: OV-Left Knee pain and weakness follow up Intake Note: Tobi is a 74 year old male who presents today for a follow up of his Left Knee Pain, s/p Left TKA 06/30/23. Patient reports continued pain and limping. Allergies No Known Allergies Allergy (Verified 02/20/25 10:50) HPI HPI OV-Left Knee pain and weakness follow up: Details: Tobi is a 74 year old male who presents today for a follow up of his Left Knee Pain, s/p Left TKA 06/30/23. Patient reports occasional pain and limping. He describes discomfort in the medial knee, lateral calf and bottom of foot. Occasional describes burning. He is able to wlak long distances without pain. Denies problems with the TKA or the knee. [facility] Medical History Diabetes mellitus Osteoarthritis of left knee Hypercholesterolemia Hypertension Surgical History History of left knee surgery Hx of appendectomy History of colonoscopy (~05/05/23) Family History Mother No problems noted. Father No problems noted. Social History Household Members: Spouse Housing: House Are you a primary geriatric personal care aide to a significant other at home: No Do you presently have visiting nurse or other home services: No Alcohol intake: current Alcohol intake frequency: holidays/special occasions only Alcohol type: beer and wine Comment: occasional use Patient Tobacco Use Status: Former Tobacco user Tobacco use type: Cigarette e-Cigarette/Vaping Use: Never Used Second Hand Smoke Exposure: Yes service: No Current occupational status: retired Cognitive needs: No Hearing needs: No Vision needs: Yes (glasses) Physical Exam Exam Exam: nl gait 0-130 deg motion stable NV exam Mild ttp medial femoral condyle and lateral calf with no swelling and full ankle ROM. DP+2 Assessment & Plan Assessment & Plan (1) Status post total knee replacement, left: Comment: 01/17/2023 Dr. Varela Code(s): Z96.652 - Presence of left artificial knee joint Category: Surgical Plan: Doing well s/p left TKA. He has occasional discomfort but not really relating to his knee and his pain and function are minimal. He can see me at any time if he does develop worsening pain. At this time his exam is benign and his motion is good. Orders: Orders XR knee LT 3V Today M25.562 - Pain in left knee Coding Level of Care Code Est Pt Level 3 (95345) Diagnoses Status post total knee replacement, left Z96.652
== END 2025-02-20 10:52 | disposition home or self-care (01) ==
LOC: HO.HOS 08:47
PROVIDERS: PCP Internal Medicine; Visit Provider Orthopaedic Surgery
DX: Z47.89 Encounter for other orthopedic aftercare (principal); Z96.652 Presence of left artificial knee joint
CPT/HCPCS: 99213

== ENCOUNTER 2025-02-20 09:28 | Outpatient (REF) | payer OTHER, SELFPAY ==
--- NOTE | ~2025-02-20 | XR_ITS ---
EXAMINATION: XR KNEE, LEFT CLINICAL INFORMATION: M25.562 - Pain in left knee COMPARISON: September 29, 2023. TECHNIQUE: AP view of standing position both knees. Lateral and sunrise views of the left knee. FINDINGS: There is a metallic prosthesis with a femoral and tibial component well-seated in the osseous structures. There is loosening in both the femoral and tibial plateau component. No gross malalignment. There is a metallic prosthesis in the posterior patella. Vascular calcifications. Bicompartmental osteoarthrosis, right knee. 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 Electronically signed by: Mark Leon MD 02/20/2025 10:59 AM EDT
== END 2025-02-20 09:29 | disposition home or self-care (01) ==
LOC: HO.HOSX 09:28
PROVIDERS: Visit Provider Orthopaedic Surgery
DX: M25.562 Pain in left knee (principal); E11.9 Type 2 diabetes mellitus without complications; I10 Essential (primary) hypertension
CPT/HCPCS: 36415; 73562; 80048; 80061; 80076; 81001; 82043; 82570; 83036; 84443; 85027; 99212

== ENCOUNTER → 2025-02-20 10:12 | Outpatient (BNV) | payer OTHER, SELFPAY | PROVIDERS: Visit Provider Radiology Diagnostic Radiology | DX: M25.562 Pain in left knee (principal); Z96.652 Presence of left artificial knee joint | CPT/HCPCS: 73562 ==

== ENCOUNTER 2025-03-05 14:37 | Outpatient (AMB) | payer OTHER, SELFPAY ==
--- NOTE | 2025-03-05 14:54 | A.OFFPC_ITS ---
Vital Signs 03/05/25 14:56 Height 5 ft 6 in Weight 173 lb 6 oz BMI 28.0 BP 134/60 Blood Pressure Location Lt brachial Position Sitting Pulse 79 Pulse Source Pulse Oximeter Temp 97.3 F Temp Source Temporal Artery Scan Pulse Oximetry (%) 98 Oxygen Delivery Method Room Air Intake Visit Reasons: follow up - see comments Intake Note: Patient is here to follow up on DM, HTN and lab results. Energy Broker Required: No Master Electrician: Not Required per policy Accompanied by: Self / Same As Patient Allergies No Known Allergies Allergy (Verified 03/05/25 14:55) Tobacco use date assessed: 03/05/25 Fall risk assessment: No Falls in past year Last assessed Fall Risk: 03/05/25 Dental Screening Dental Screen Date: 05/02/24 [facility] Medical History Diabetes mellitus Osteoarthritis of left knee Hypercholesterolemia Hypertension Surgical History History of left knee surgery Hx of appendectomy History of colonoscopy (~05/05/23) Family History Mother No problems noted. Father No problems noted. Social History Household Members: Spouse Housing: House Are you a primary childcare attendant to a significant other at home: No Do you presently have visiting nurse or other home services: No Alcohol intake: current Alcohol intake frequency: holidays/special occasions only Alcohol type: beer and wine Comment: occasional use Patient Tobacco Use Status: Former Tobacco user Tobacco use type: Cigarette e-Cigarette/Vaping Use: Never Used Second Hand Smoke Exposure: Yes service: No Current occupational status: retired Cognitive needs: No Hearing needs: No Vision needs: Yes (glasses) Questionnaire PHQ-9 Over the last 2 weeks, how often have you been bothered by any of the following problems? 1. Little interest or pleasure in doing things: not at all 2. Feeling down, depressed, or hopeless: not at all 3. Trouble falling or staying asleep, or sleeping too much: several days 4. Feeling tired or having little energy: not at all 5. Poor appetite or overeating: not at all 6. Feeling bad about yourself - or that you are a failure or have let yourself or your family down: several days 7. Trouble concentrating on things, such as reading the newspaper or watching television: not at all 8. Moving or speaking so slowly that other people could have noticed. Or the opposite - being so fidgety or restless that you have been moving around a lot more than usual: not at all 9. Thoughts that you would be better off or of hurting yourself in some way: not at all Total score: 2 Depression Screening Interpretation: Positive Depression Screening Done: Yes Source: Developed by Drs. Kevin Linder, Natividad Johnson, Filemon Flanagan and colleagues, with an educational jaret from [employer]. Thrive Questionnaire Date Thrive assessed: 05/02/24 I am a: Patient What is your living situation today?: I have a steady place to live Within the past 12 months, did the food you bought not last and you didn't have the money to get more?: Never true Within the past 12 months, did you worry whether your food would run out before you got money to buy more?: Never true Do you have trouble paying for medicines?: No Do you have trouble getting transportation to medical appointments?: No Do you have trouble paying your heating and electricity bill?: Yes Do you have trouble taking care of your child, family member or friend?: No Do you have trouble with day-to-day activities such as bathing, preparing meals, shopping, managing finances, etc.?: No Are you currently unemployed and looking for a job?: No Are you interested in more education?: No Please select the resources that you would like help with: None Currently or been in a relationship where the following occur: No concerns reported THRIVE Score: 1 AUDIT C Alcohol Use Questionnaire (AUDIT-C) 1. How often do you have a drink containing alcohol?: Never Total Score: 0 LEVAR-7 AMB Questionnaire LEVAR-7 Date LEVAR - 7 assessed: 05/02/24 Feeling nervous, anxious, or on edge: 0 = Not at all Not being able to stop or control worryin = Not at all Worrying too much about different things: 0 = Not at all Trouble relaxin = Not at all Being so restless that it is hard to sit still: 0 = Not at all Becoming easily annoyed or irritable: 0 = Not at all Feeling afraid as if something awful might happen: 0 = Not at all Total LEVAR-7 score (0-4 normal; 5-9 mild; 10-14 moderate; 15-21 severe): 0 Source: Developed by Drs. Kevin Linder, Natividad Johnson, Fileomn Flanagan and colleagues, with an educational jaret from [employer]. Physical exam (Primary Care) Vital Signs: Last Vital Signs Temp 97.3 F 03/05/25 14:56 Pulse 79 03/05/25 14:56 BP 134/60 03/05/25 14:56 Pulse Ox 98 03/05/25 14:56 Oxygen Delivery Method Room Air 03/05/25 14:56 BMI result Body Mass Index 28.0 Tobacco/Smoking Status: Tobacco use Status Tobacco use date assessed 03/05/25 03/05/25 15:06 Patient Tobacco Use Status Former Tobacco user 03/05/25 14:54 Tobacco use type Cigarette 03/05/25 14:54 e-Cigarette/Vaping Use Never Used 03/05/25 14:54 PHQ-9: PHQ-9 Score PHQ-9: Total score 2 03/05/25 15:06 Depression Screening Interpretation: Positive Thrive Assessment: Date of Thrive Assessment Date Thrive assessed 05/02/24 03/05/25 14:54 Currently or been in a relationship where the following occur: No concerns reported Coding Level of Care Code Est Pt Level 4 (81445) Complex EM visit Add On G2211 Diagnoses Diabetes mellitus E11.9 Assessment & Plan Assessment & Plan (1) Diabetes mellitus: Code(s): E11.9 - Type 2 diabetes mellitus without complications Category: Medical Plan: History of Present Illness - The patient is a 74-year-old male presenting for management of uncontrolled hyperglycemia. - Recent blood work revealed a blood glucose level of 326. - The patient has not been taking any medication for diabetes, stating he cannot remember how long this has been the case and was unaware of which medication was for diabetes. - He reports that he was not given metformin at the pharmacy. - His current medications include amlodipine, famotidine, simvastatin 20 mg, losartan, tadalafil for the prostate, and ibuprofen as needed. - He also takes an unspecified medication for constipation. - The patient reports he has already received his flu shot. Social History - The patient is retired and lives with his son in [place] after moving from [place]. - He travels from [place] for all his medical and dental appointments. - The patient fills his prescriptions at a [facility] pharmacy in [place]. Review of Systems Physical Exam General: Cooperative and healthy appearing Nutritional Appearance: Well nourished Orientation/consciousness: Patient oriented x3 Limitations: No limitations Head: Normal to inspection General: Appearance normal, both eyes and all related structures Neck: Normal visual inspection Chest: Normal palpation of entire chest wall Respiratory: Normal respiratory effort Neurology: Patient oriented x3 Results - Labs: Recent blood glucose was 326. Plan - A prescription for metformin will be sent to the pharmacy; the patient is to take two tablets in the morning and two at night. - A new prescription for Jardiance will be sent to the pharmacy; the patient is to take one tablet daily. - The patient was counseled to reduce dietary sugar intake. - The patient was instructed to obtain all future blood work at the hospital rather than [facility]. - Recommended follow-up in three months with repeat blood work to be done beforehand. - A paper printout of the new prescriptions will be provided for the patient to show the pharmacy. - Discussed the option of finding a primary care provider in [place] to reduce travel burden. Discussion Notes I discussed with the patient that his recent lab work showed a significantly high blood sugar of 326. Upon reviewing his medications, it was determined that he has been non-adherent with his diabetes regimen, as he was not taking any medication for it. I explained the importance of managing his high blood sugar and will be starting him on two medications: metformin twice daily and Jardiance once daily. I counseled him on reducing sugar in his diet and will provide a paper prescription to help him obtain his medications from the pharmacy. We discussed the logistical challenge of him traveling from [place], and I encouraged him to find a local doctor. I advised him to ensure all future lab work is done at the hospital. Follow-up will be in three months with repeat blood work. Patient Instructions - Your blood sugar is very high, so it is important to start your diabetes medications right away. - Start taking Metformin. Take two tablets in the morning and two tablets at night. - Start taking Jardiance. Take one tablet once a day. - Reduce the amount of sugar you eat. - Prescriptions for these new medications have been sent to your pharmacy. - Take the paper printout from the hotel front office manager to your pharmacy to make sure you get the correct medications. - Make sure all future blood tests are done at the [facility], not at [facility]. - Schedule a follow-up appointment in three months. You will need more blood work done before that visit. Medications: New empagliflozin (Jardiance) 25 mg PO DAILY 90 tabs 1RF Changed From metformin 500 mg PO BID 60 tabs 1RF R73.9 - Hyperglycemia, unspecified To metformin 1,000 mg (2 x 500 mg) PO BID 360 tabs 1RF 90 days R73.9 - Hyperglycemia, unspecified Refilled tadalafil (Cialis) 5 mg PO DAILY 90 tabs 1RF losartan 100 mg PO QAM 90 tabs 1RF simvastatin 20 mg PO BEDTIME 90 tabs 1RF amlodipine 20 mg (2 x 10 mg) PO QAM 180 tabs 1RF
[2025-03-05 14:56] VITALS: BP 134/60; PULSE 79; TEMP 36.3; O2SAT 98; BMI 28.0
--- OUTSIDE RECORDS SUMMARY | 2025-03-05 18:05 | XMS_ITS | Data Portability ---
Author Organization [employer] [facility], [place] [facility] Address [address] [place] [address] Care Team Providers Care Laser Beam Cutter Name Role Phone HIM CCA OTHER Assessment Encounter Date Assessment Date Assessment LastModified by Organization Details LastModified Time 09/06/2023 09/06/2023 I provided real -time medical direction via phone for this encounter, and was available for additional phone based assistance as needed. I have reviewed and agree with the Assessment and Plan as documented by the Business Management Intern. We discussed the diagnostic uncertainty of home [...] verbalized understanding of instructions to the medic [email or web address] Not available 09/06/2023 13:06:49 12/01/2023 12/01/2023 As noted, we were called to see this patient regarding concerns of upper respiratory symptoms Evaluation in the field was performed by my nursing executive colleague, as noted above, I provided real-time direction and supervision for this visit. The evaluation revealed the same Impression: 72yo/m referred to [facility] for several days of viral respiratory [...] particularly any acute worsening symptoms or illness [email or web address] Not available 12/01/2023 12:14:32 01/10/2024 01/10/2024 I have reviewed and agree with the assessment and plan as documented by the nursing executive. I provided real time medical direction for this encounter and was immediately available to provide additional phone based assistance as needed. History as noted by nursing executive. Pt with history of DM2, HTN. Pt [...] consistent with UTI. Urine culture sent to [facility]. Diagnosis of UTI discussed with pt. Pt [...] Assessment and Plan as documented by the Business Management Intern. Patient given the opportunity to ask questions. Our service contacted for an assessment of: viral symptoms As per above, patient with an approx week worth of headache nasal congestion and myalgias arthralgias. Positive sick contacts. Taking jusl-qov-fbnbjnu medications with a positive trajectory. Wanted to be tested for viral illnesses. Denies chest pain shortness of breath. Per nursing executive on the scene, vital signs are stable [...] rapid strep group A, throat [address] [facility], [address] [place] [address], [id number] 5 22:30:04 rapid SARS CoV 2 Ag, QL IA, respiratory specimen [address], [address] [place] [address], [id number] 4 12:07:44 rapid flu (A+B) [email or web address], [address] [place] [address], [id number] 4 12:07:45 urinalysis, dipstick [email or web address] [facility], [address] [place] [address], [phone] 4 12:04:04 culture, urine 2023 024 [facility], [address] [place] [address], Rust [address], [place], [address], 4 15:18:20 Referral None recorded. Procedures None recorded. Surgeries None recorded. Imaging electrocard iogram [address] [facility], [address] [place] [address], [id number] 5 22:30:04 Medication Orders cefpodoxime 200 mg tablet 2023 024 [facility]/Pharmacy #[id number], [address] [place], [address], 4 12:04:08 loperamide 2 mg tablet 2023 024 [email or web address] 0 [facility]/Pharmacy #[id number], [address] [place], [address], 4 13:09:24 Anti-Diarrh eal (loperamide ) 2 mg tablet 2023 024 [facility]/Pharmacy #[id number], [address] [place], [address], 13:09:29 Patient TargetsNo targets recorded. Patient InstructionsNo instructions recorded. Reason for Referral None Reported. Results Created Date Observation Date Name Description Value Unit Range Abnormal Flag Note LastModifiedBy Organization Detail LastModifiedTime 01/13/20 24 01/13/2024 CULTU RE, URINE , ROUTI NE culture, urine, routine SEE NOTE CULTU RE, URINE , ROUTI NE Micro Numbe r: [id number] Test Statu s: Final Speci men [...] CLIEN T SERVI ROSEMARY. PHONE NUMBE R: [phone] Not Available [facility] [address], [place], [address], 01/13/2024 15:18:20 04/20/20 24 04/20/2024 rapid flu (A+B) Flu negati ve Not Available [facility] [address] [place] [address], [phone] 04/20/2024 12:07:30 04/20/20 24 04/20/2024 rapid SARS CoV 2 Ag, QL IA, respi rator y speci men rapid SARS CoV 2 Ag, QL IA, respiratory specimen negati ve Not Available [facility] [address] [place] [address], [id number] 04/20/2024 12:07:24 11/19/19 25 11/18/2024 rapid strep group A, throa t Strep negati ve Not Available [facility] [address] [place] [address], [phone] 11/18/2024 22:28:50 0711/18/2024 bulmaro [email or web address] am No observ ation record ed. [email or web address] [address], [place], [address] 11/18/2024 22:29:57 Result Notes None recorded. Medical [...] DateTime 09/06/2023 124/79 mm[Hg] Adriano Esparza [address] [facility],[address], [place], [address], [place] - [facility] 09/06/2023 13:02:08 Date Recorded Body weight Heart rate Respiratory rate Body temperature Oxygen saturation Oxygen saturation in Arterial blood by Pulse oximetry Body height Provider Name and Address Organization Details Last Updated DateTime 4 68560.8 g 66 /min 14 /min 98.4 [degF] 100 % 100 % 167.64 cm Not Available [facility] - production 12:58:45 Date Recorded Respiratory rate Oxygen saturation Oxygen saturation in Arterial blood by Pulse oximetry Body height Body weight Heart rate Body temperature Systolic And Diastolic Provider Name and Address Organization Details Last Updated DateTime 5 19 /min 100 % 100 % 170.18 cm 83386.7 2 g 66 /min 98.5 [degF] 126/72 mm[Hg] Not Available [facility] - production 5 11:39:58 Date Recorded Respiratory rate Body temperature Body weight Heart rate Body height Oxygen saturation Oxygen saturation in Arterial blood by Pulse oximetry Systolic And Diastolic Provider Name and Address Organization Details Last Updated DateTime 4 20 /min 98.3 [degF] 91662.7 2 g 70 /min 167.64 cm 95 % 95 % 140/90 mm[Hg] Not Available [facility] - production 4 12:06:16 Date Recorded Heart rate Body weight Respiratory rate Body temperature Oxygen saturation Oxygen saturation in Arterial blood by Pulse oximetry Body height Systolic And Diastolic Provider Name and Address Organization Details Last Updated DateTime 4 80 /min 04154.6 g 14 /min 98.4 [degF] 98 % 98 % 157.48 cm 156/95 mm[Hg] Not Available [facility] - production 4 11:59:34 Date Recorded Body temperature Respiratory rate Heart rate Oxygen saturation Oxygen saturation in Arterial blood by Pulse oximetry Systolic And Diastolic Provider Name and Address Organization Details Last Updated DateTime 4 98.5 [degF] 16 /min 71 /min 97 % 97 % 145/83 mm[Hg] Not Available [facility] - production 4 11:07:16 Social History None recorded. Functional Status None recorded. Mental Status None recorded. Family History Nothing Reported. Medical History No medical history recorded. Past Encounters Encounter ID Performer Location Encounter Start Date Encounter Closed Date Diagnosis/Indication Diagnosis SNOMED-CT Code Diagnosis ICD10 Code Diagnosis IMO Codes Diagnosis Note [id number] Nakita Condon MD [facility] - [facility] [address] [place] [id number] 04/23/2023 20:56:48 04/25/2023 12:36:01 Headache 26294944 R51.9 [id number] Andrew Cavazos MD [facility] - [facility] [address] [place] [id number] 06/12/2023 14:18:29 06/13/2023 10:54:21 Viral upper respiratory tract infection 872754900 J06.9 [id number] Paulina Sparks MD [facility] - [facility] [address] [place] [id number] 08/27/2023 19:14:51 08/29/2023 11:44:17 Diarrhea 66815208 R19.7 [id number] Billie Hunt MD [facility] - [facility] [address] [place] [id number] 09/06/2023 12:58:43 09/06/2023 17:35:55 Diarrhea 98813329 R19.7 Patient is eating and drinking well, [...] and vegetables -advised to stay well-hydra sydnie [id number] Jasvir Schaefer MD Main - [facility] [address] [place] [id number] 12/01/2023 12:06:14 12/01/2023 18:14:08 Viral upper respiratory tract infection [id number] J06.9 [id number] Andrew Cavazos MD Main - [facility] [address] [place] [id number] 01/10/2024 11:59:31 01/10/2024 17:47:10 Urinary symptoms 124115568 R39.9 [id number] Nakita Condon MD [facility] [address] [place] [id number] 04/20/2024 11:07:14 04/23/2024 20:40:04 Viral syndrome [id number] B34.9 [id number] Estrella Carlos MD [facility] [address] [id number] 11/18/2024 11:39:47 11/19/2024 13:44:14 Viral pharyngitis 9640408 J02.9 [id number] 73 year old male being evaluated for [...] assessment and plan as documented by the nursing executive. I provided real-time medical direction for this [...] Cao Member ID Guarantor Name 11/18/2024 1 [facility] - DOS ON OR AFTER 2022 - DUAL ELIGIBLE - LONG TERM OPTIONS AND ONE CARE (MEDICARE REPLACEMENT/ADV ANTAGE - HMO) Tobi Epps [id number] Tobi Epps Notes Date Note Type Note Provider Name and Address Organization Details Recorded Time 09/06/2023 text/html ROS as noted in the HPI [facility] Nurse Triage Notes (Emerita Cho): Reason For Request: Pt reporting being seen by [facility] 10 days ago but is still experiencing diarrhea/abdominal pain Chief Complaints: Abdominal Pain, Diarrhea PMH: Hypertension, Heart Disease Allergies: No Known Comments: Member calling in to place a referral, verified via name, and address. [facility], plan was [...] and drinking well he often goes to [place] restaurant or has vegetable soup and rice. He is no longer taking polyethylene glycol. Patient was seen on 08/26 his exam showed no acute distress vital signs were stable he was afebrile-the stool is intermittently liquid............... ..................... ..................... ..................... ..................... ..................... ..................... . Business Management Intern Note From Seamus Aragon: Patient conscious alert [...] Patient walks with a steady even gait. [facility] orders loperimide 4 mg PO and will RX more to the patient s local pharmacy.Red flags and pt education discussed BRAT diet discussed. ..................... ..................... ..................... ..................... ..................... ..................... ............... Disposition: Fulfilled Billie Hunt MD [address] [facility],[address], [place], [address], [employer] [place] [facility] 09/06/2023 13:30:29 12/01/2023 text/html ROS as noted in the HPI [facility] Nurse Triage Notes (Josias Whitehead): Reason For Request: Pt reporting a cold, sore throat, headache, feverish, partial weakness>symptoms going on 4 days Chief Complaints: Cough, Headache, Fever/Chills PMH: Hypertension, Heart Disease Other Allergies: NKA Comments: Hospital Coder verified the member's name//address and phone number. [...] ..................... ..................... ..................... ..................... ..................... ..................... ............... Business Management Intern Note From Raven Gonzales: Pt chief complaint [...] tinge to the back of the area. [facility] consulted Pt educated on the medications including their effects and dangers, However pt is informed he may continue taking them as directed.Pt educated on re flag s&s and instructed to call emergency services if any present. ..................... ..................... ..................... ..................... ..................... ..................... ............... Disposition: Fulfilled Jasvir Schaefer MD [address] [place] [address],[address], [place], [phone] 12/01/2023 12:27:00 01/10/2024 text/html ROS as noted in the HPI This was a supervised home visit with nursing executive Seamus Aragon. [facility] Nurse Triage Notes (Brianda Santos): Reason For Request: UTI Chief Complaints: UTI/Pyelonephritis PMH: Hypertension, Heart Disease Allergies: No Known Comments: Hospital Coder verified the member's name//address and phone number. [...] s/s and seek emergency treatment if needed Business Management Intern Organization Information for Seamus Aragon Legal Name: [facility] Address: [address] [place] [address], [place] [address], Biomedical Technician: Kodi FLANAGAN No.: [id number] Business Management Intern POC Test Results from Seamus Aragon Urine Dipstick (11:39:00) Urine leukocytes: + DARCI Urine nitrites: - NIT Urine urobilinogen: 0.2 URO Urine protein: 30 PRO Urine pH: 5.0 pH Urine blood: - BLO Urine specific gravity: 1.015 SG Urine ketones: 15+ KET Urine bilirubin: - TOBIN Urine glucose: - GLU ..................... ..................... ..................... ..................... ..................... ..................... ............... Business Management Intern Note From Seamus Aragon: Patient alert and [...] appetite. Patient denies any other pain or complains.[place] warm, dry, secondary exam unremarkable abdomen soft, soft, non-tender. Extremities unremarkable, no increased breathing noted. UA dip values to [facility]. [facility] orders antibiotic to patients, local pharmacy, culture to [facility],. Patient demonstrates understanding of care and plan. [facility] Lab Orders: urinalysis, dipstick: Performed Comment: bright dark yellow, clear no sediment no odor ..................... ..................... ..................... ..................... ..................... ..................... ............... Disposition: Fulfilled Andrew Cavazos MD [address] [facility],[address], [place], [phone], [facility] 01/10/2024 13:34:01 04/20/2024 text/html [facility] Nurse Triage Notes (Josias Whitehead - YASIR): Denies: Increased work of breathing/labored with or without fever Unable to speak in full sentences without distress Needs to sleep sitting up, can t catch breath Shortness of breath in setting of confusion Cough Chief Complaints: Headache, Joint pain/swelling PMH: Hypertension, Coronary Artery Disease Comments: Hospital Coder verified the Pt.'s name//address and phone number. [...] medication with no relief. Wellness visit requested. Business Management Intern Organization Information for Palmer Berry Business Legal Name: [employer]. Address: [address] [place] [address], Biomedical Technician: Fitz Sarabia MD [facility] No.: [id number] Business Management Intern POC Test Results from Palmer Berry Rapid COVID antigen (11:04:17) COVID: - Attachments uploaded as part of this test result can be found under Documents section. Rapid influenza antigen (11:04:18) Flu: - Attachments uploaded as part of this test result can be found under Documents section. ..................... ..................... ..................... ..................... ..................... ..................... ............... Business Management Intern Note From Palmer Berry: Was dispatched for [...] for Covid, and the flu, both negative. [facility] was contacted, [facility] believes the PT has a common cold that is going around and instructed the PT to treat at home with Tylenol, cough medication, and nasal decongestion. PT understood. Crew cleared. ..................... ..................... ..................... ..................... ..................... ..................... ............... [facility] Consulted: Nakita Conodn ..................... ..................... ..................... ..................... ..................... ..................... ............... 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 Business Management Intern Organization Information for Raven Gonzales HERIBERTO Business Legal Name: [facility] Address: [address] [place] [address], [place] [address], Biomedical Technician: Kodi FLANAGAN No.: [id number] Business Management Intern POC Test Results from GonzalesRaven - HERIBERTO EKG (11:18:06) EKG test performed. Attachments uploaded as part of this test result can be found under Documents section. Rapid strep test (11:18:11) Strep: - Attachments uploaded as part of this test result can be found under Documents section. EKG (11:18:06) - This test has been updated by the nursing executive, Raven Gonzales at (11/18/2024 12:02:42). The changes are marked in bold. EKG test performed. Attachments uploaded as part of this test result can be found under Documents section. ..................... ..................... ..................... ..................... ..................... ..................... ............... Business Management Intern Note From Raven Gonzales: Pt chief complaint today of cold/ flu symptoms as well as increased heart rate. Pt state that all signs and symptoms have been occurring for approx 1 week prior to [facility] arrival at scene today however he does [...] fully caox4 with a gcs of 15. [facility] Estrella Carlos consulted. Pt is informs of findings. Pt is told to contact his pcp at earliest convenience for potential follow up. Pt and family are educated more flag S&S and told to contact emergency services if any present. ..................... ..................... ..................... ..................... ..................... ..................... ............... [facility] Consulted: Estrella Carlos ..................... ..................... ..................... ..................... ..................... ..................... ............... Disposition: Camron Carlos MD [address] [facility],[address], [place], [address], [employer] [facility] 11/18/2024 22:33:10
--- OUTSIDE RECORDS SUMMARY | 2025-03-05 18:05 | XMS_ITS | Clinical Summary ---
Author Organization [facility] Address [address] [place] [address] Care Team Providers Care Career Technical Education Teacher Name Role Phone Dylan Shabazz Primary Care Provider [phone] Allergies No known active allergies Medications amLODIPine [...] EDT - 12/23/2024 2:05 PM EDT Emergency [facility] Emergency Department [address] [place] [address] Seamus Tejada MD Right ear pain (Primary Dx) Discharge Disposition: Home or Self Care () 12/22/2024 8:13 AM EDT - 12/22/2024 9:34 AM EDT Emergency [facility] Emergency Department [address] [place] [id number] Jasvir Joaquin MD Right ear pain (Primary Dx) Discharge Disposition: Home or Self Care () from Last 3 Months Immunizations Immunization Administration Dates Next Due Hepatitis A Vaccine, Adult Dosage 05/18/2023, Influenza, High Dose Seasona l, Preservative Free (FLUZONE HIGH-DOSE) 01/22/2019 Influenza, High Dose Seasonal, Quadrivalent PF 0 01/09/2023,02/02/2022 Influenza, Injectable, Quadrivalent, Preservativ e Free 04/07/2021 Pneumococcal conjugate PCV20 ,polysaccharide [id number] conjugate, adjuvant, PF (Prevnar 20) 09/23/2022 Poliovirus [...] Info) Description 05/07/2025 9:30 AM EST Appointment [facility] [address] [place] [phone] Aviation Electronic Warfare Operator: Maritza Leone, TRAV Hubbard [address] [place] [address] [phone] Health Maintenance Due Date Last Done Comments [...] 12/18/2024 , 10/15/2023, 04/08/2021, Additional history exists Fall Risk Screening 12/23/2025 12/23/2024 DTaP,Tdap,and Td Vaccines (3 - Td or Tdap) 02/20/2034 02/21/2024, 02/10/2022 Pneumococcal Vaccine: 50+ Years Completed 09/23/2022 RSV Vaccine (60+ years old and patients) Completed 02/09/2023 Zoster Vaccines Completed 12/13/2023, 10/07/2022 Hepatitis B Vaccines Aged Out No long er eligible based on patient's age to complete this topic Procedures * Due to [place] [employer] law, this organization might not be sharing [...] Last 3 Months Results * Due to [place] [employer] law, this organization might not be sharing negative HIV tests. * Wick Top, Urine (12/18/2024 12:35 PM EDT) Extra Tube Hold for add-ons. 12/18/2024 5:05 PM EDT [facility] Comment:Auto resulted. Urine Urine specimen collection, clean catch / Unknown Non-Blood Collection / Unknown 12/18/2024 12:35 PM EDT 12/18/2024 1:19 PM EDT us Dylan Shaabzz LAB URINE ORDERABLES Final Result [facility] [address] [place] [address], [place] * (ABNORMAL) Urinalysis W/Reflex to Microscopic & Culture (12/18/2024 12:35 PM EDT) Color, Urine Yellow Colorless, Light Yellow, Yellow, Dark Yellow 12/18/2024 1:36 PM EDT [facility] Clarity, Urine Clear Clear 12/18/2024 1:36 PM EDT [facility] Specific Schriever, Urine 1.024 <1.030 12/18/2024 1:36 PM EDT [facility] pH, Urine 6.0 4.6 - 8.0 12/18/2024 1:36 PM EDT [facility] Protein, Urine Trace(A) Negative 12/18/2024 1:36 PM EDT [facility] Glucose, Urine Normal Normal 12/18/2024 1:36 PM EDT [facility] Ketones, Urine Negative Negative 12/18/2024 1:36 PM EDT [facility] Bilirubin, Urine Negative Negative 12/18/2024 1:36 PM EDT [facility] Blood, Urine Negative Negative 12/18/2024 1:36 PM EDT [facility] Nitrite, Urine Negative Negative 12/18/2024 1:36 PM EDT [facility] Urobilinogen, Urine Normal Normal 12/18/2024 1:36 PM EDT [facility] Leukocyte Esterase, Urine Negative Negative 12/18/2024 1:36 PM EDT [facility] WBC, Urine 2 0 - 2 /HPF 12/18/2024 1:36 PM EDT [facility] RBC, Urine <1 0 - 2 /HPF 12/18/2024 1:36 PM EDT [facility] Hyaline Casts, Urine 0 0 - 2 /LPF 12/18/2024 1:36 PM EDT [facility] Bacteria, Urine None Seen None /HPF /HPF 12/18/2024 1:36 PM EDT [facility] Mucus, Urine Rare /LPF 12/18/2024 1:36 PM EDT [facility] Urine Urine specimen collection, clean catch / Unknown Non-Blood Collection / Unknown 12/18/2024 12:35 PM EDT 12/18/2024 1:19 PM EDT us Dylan Shabazz LAB URINE ORDERABLES Final Result [facility] [address] [place] [address], * Microalbumin/Creatinine Urine, Random (12/18/2024 12:35 PM EDT) Microalbumin, Urine <2.0 mg/dL 12/18/2024 3:16 PM EDT [facility] Creatinine, Urine 310 22 - 328 mg/dL 12/18/2024 3:16 PM EDT [facility] Microalb/Creat Ratio, Random Urine 12/18/2024 3:16 PM EDT [facility] Comment: < 1.0 mcg/mgCr Microalbumin Reference Range: Normal <30 mcg/mg Creatinine Microalbuminuria 30-300 mcg/mg Creatinine Clinical Albuminuria >300 mcg/mg Creatinine Reference: ADA Guideline. Diabetes Care. 2004;27 (suppl 1) Urine Voided urine specimen / Unknown Non-Blood Collection / Unknown 12/18/2024 12:35 PM EDT 12/18/2024 1:19 PM EDT Dylan Shabazz LAB URINE ORDERABLES Final Result [facility] [address] [place] [address], * (ABNORMAL) CBC (12/18/2024 12:35 PM EDT) WBC 3.8 3.8 - 10.8 10*3/uL 12/18/2024 1:06 PM EDT [facility] RBC 4.44 4.20 - 5.80 10*6/uL 12/18/2024 1:06 PM EDT [facility] Hemoglobin 13.5 13.2 - 17.1 g/dL 12/18/2024 1:06 PM EDT [facility] Hematocrit 37.8(L) 38.5 - 50.0 % 12/18/2024 1:06 PM EDT [facility] MCV 85.1 80.0 - 100.0 fL 12/18/2024 1:06 PM EDT [facility] MCH 30.4 27.0 - 33.0 pg 12/18/2024 1:06 PM EDT [facility] MCHC 35.7 32.0 - 36.0 g/dL 12/18/2024 1:06 PM EDT [facility] RDW 12.7 11.0 - 15.0 % 12/18/2024 1:06 PM EDT [facility] Platelets 294 140 - 400 10*3/uL 12/18/2024 1:06 PM EDT [facility] MPV 8.7 7.5 - 12.5 fL 12/18/2024 1:06 PM EDT [facility] Blood Structure of peripheral vein / Unknown Venipuncture / Unknown 12/18/2024 12:35 PM EDT 12/18/2024 12:58 PM EDT [facility] Final Result Performing Organization Address City/[facility] Co de Phone Number [facility] [address] [place] [address], * TSH (12/18/2024 12:35 PM EDT) TSH 1.560 0.280 - 3.890 uIU/mL 12/18/2024 1:42 PM EDT [facility] Blood Structure of peripheral vein / Unknown Venipuncture / Unknown 12/18/2024 12:35 PM EDT 12/18/2024 12:58 PM EDT [facility] BLO[facility] Final Result Performing Organization Address [facility] de Phone Number [facility] [address] [place] [address], * (ABNORMAL) Hemoglobin A1c (12/18/2024 12:35 PM EDT) Hemoglobin A1C 7.5(H) <5.7 % 12/18/2024 10:13 PM EDT [facility] Comment: For someone without known diabetes, a [...] (MG/DL) 169 mg/dL 12/18/2024 10:13 PM EDT [facility] eAG (MMOL/L) 9.3 mmol/L 12/18/2024 10:13 PM EDT [facility] Blood Structure of peripheral vein / Unknown Venipuncture / Unknown 12/18/2024 12:35 PM EDT 12/18/2024 12:58 PM EDT Narrative [facility] - 12/18/2024 10:13 PM EDT [facility] Received Date: Dylan Shabazz LAB BLOOD ORDERABLES Final Result [facility] [address] [facility] [address], [place] [address], [facility] [address] [facility] [address], [place] [address], * Hepatic Function Panel (12/18/2024 12:35 PM EDT) Total Protein 7.9 6.0 - 8.0 g/dL 12/18/2024 1:42 PM EDT [facility] Albumin 4.8 3.5 - 5.2 g/dL 12/18/2024 1:42 PM EDT [facility] Globulin, Total 3.1 2.1 - 4.2 g/dL 12/18/2024 1:42 PM EDT [facility] Bilirubin, Total 1.0 0.2 - 1.2 mg/dL 12/18/2024 1:42 PM EDT [facility] Bilirubin, Direct 0.4 <=0.4 mg/dL 12/18/2024 1:42 PM EDT [facility] Alkaline Phosphatase 52 35 - 129 U/L 12/18/2024 1:42 PM EDT [facility] AST 16 10 - 40 U/L 12/18/2024 1:42 PM EDT [facility] ALT 15 10 - 40 U/L 12/18/2024 1:42 PM EDT [facility] Bilirubin, Indirect 0.60 <=0.70 mg/dL 12/18/2024 1:42 PM EDT [facility] A/G Ratio 1.5 1.5 - 3.0 12/18/2024 1:42 PM EDT [facility] Blood Structure of peripheral vein / Unknown Venipuncture / Unknown 12/18/2024 12:35 PM EDT 12/18/2024 12:58 PM EDT Dylan Shabazz LAB BLOOD ORDERABLES Final Result [facility] [address] [place] [address], [place] * (ABNORMAL) Lipid panel (12/18/2024 12:35 PM EDT) Cholesterol 151 <=199 mg/dL 12/18/2024 1:42 PM EDT [facility] Triglycerides 156(H) <=149 mg/dL 12/18/2024 1:42 PM EDT [facility] Cholesterol, HDL 41 40 - 59 mg/dL 12/18/2024 1:42 PM EDT [facility] Cholesterol, Non-HDL 110 mg/dL 12/18/2024 1:42 PM EDT [facility] LDL Cholesterol 79 <100 mg/dL 12/18/2024 1:42 PM EDT [facility] Comment:LDL-C is calculated using the Friedewald calculation. VLDL 31.2 mg/dL 12/18/2024 1:42 PM EDT [facility] Cholesterol/HDL Ratio 3.7 <5.0 12/18/2024 1:42 PM EDT [facility] Blood Structure of peripheral vein / Unknown Venipuncture / Unknown 12/18/2024 12:35 PM EDT 12/18/2024 12:58 PM EDT Narrative [facility] - 12/18/2024 1:42 [...] Dylan Shabazz LAB BLOOD ORDERABLES Final Result Performing Organization Address City/State/[facility] Co de Phone Number [facility] [address] [place] [phone], * (ABNORMAL) Basic Metabolic Panel (12/18/2024 12:35 PM EDT) NA 144 135 - 145 mmol/L 12/18/2024 1:42 PM EDT [facility] K 3.3(L) 3.5 - 5.3 mmol/L 12/18/2024 1:42 PM EDT [facility] Cl 104 98 - 107 mmol/L 12/18/2024 1:42 PM EDT [facility] CO2 26 22 - 32 mmol/L 12/18/2024 1:42 PM EDT [facility] BUN 15 7 - 23 mg/dL 12/18/2024 1:42 PM EDT [facility] Creatinine 0.86 0.60 - 1.30 mg/dL 12/18/2024 1:42 PM EDT [facility] Glucose 134(H) 65 - 99 mg/dL 12/18/2024 1:42 PM EDT [facility] Calcium 9.2 8.6 - 10.5 mg/dL 12/18/2024 1:42 PM EDT [facility] Anion Gap 14 5 - 15 12/18/2024 1:42 PM EDT [facility] eGFR >90 >=60 mL/min/1. 73m2 12/18/2024 1:42 PM EDT [facility] Comment:The estimated glomer ular filtration rate (eGFR) is calculated using a new formula developed by the NKF-ASN task force to eliminate race-based correction factors. The new formula uses serum/plasma creatinine, age, and gender to determine eGFR. A value below 60mls/min might indicate kidney disease and will be flagged. For additional information, see aSmaria et al, Am J Kidney Dis. 2021;79(2):268- 288, A Unifying Approach for GFR estimation: Recommendations of the NKF-ASN Task Force on Reassessing the Inclusion of Race in Diagnosing Kidney Disease . Blood Structure of peripheral vein / Unknown Venipuncture / Unknown 12/18/2024 12:35 PM EDT 12/18/2024 12:58 PM EDT us Dylan Seema Shabazz LAB BLOOD ORDERABLES Final Result [facility] [address] [place] [address], from Last 3 Months Insurance WORK[employer] COMPENSATION GENERIC Care Teams Career Technical Education Teacher Relationship Specialty Start Date End Date Dylan Shabazz [address] [place] [id number] PCP - General Internal Medicine 07/05/19
--- OUTSIDE RECORDS SUMMARY | 2025-03-05 18:05 | XMS_ITS | Encounter Summary ---
Author Organization [facility] Address [address] [place] [address] Care Team Providers Care Gas Leak Inspector Name Role Phone Dylan Shabazz Primary Care Provider [phone] Encounter Details Date Type Department Care Team (Late st Contact Info) Description 10/09/2019 Lab Requisition [facility] [address] [place] [address] No, Referring Social History Tobacco Use Types [...] Info) Description 05/07/2025 9:30 AM EST Appointment [facility] [address] [place] [address] [phone] Sheltered Workshop Executive Director: Maritza Leone, TRAV Hubbard [address] [place] [address] [phone] documented as of this encounter Procedures * Due to [place] state law, this organization might not be sharing negative HIV tests. Procedure Name Priority Date/Time Associated Diagnosis Comments COVID-19 PCR FOR SURVEILLANCE OF ASYMPTOMATIC PATIENT Routine 10/09/2019 3:39 PM EDT documented in this encounter Results * Due to [place] state law, this organization might not be sharing negative HIV tests. * COVID-19 PCR for Surveillance of Asymptomatic Patient, CLINICAL BIOSTATISTICS DIRECTOR/OP/Saliva (10/09/2019 3:39 PM EDT) SARS CoV 2 RNA, RT PCR Not Detected Not Detected 10/10/2019 6:41 AM EDT [facility] Comment:A Not Detected (nega [...] PM EDT 10/09/2019 4:33 PM EDT Narrative [facility] - 10/10/2019 6:41 AM EDT These tests were developed, validated, and their performance characteristics determined by the Molecular Virology Laboratory at [facility] under CLIA [id number]. They have not been cleared or approved by the U.S. Food and Drug Administration (FDA). FDA Policy for Diagnostic Tests for Coronavirus Disease-2019 during the Public Health Emergency issued July 08, 2019, is followed. us Referring No LAB BODY FLUIDS AND STOOLS ORDER KARI Final Result [facility] [address] [place] [address], documented in this encounter Visit Diagnoses Not on filedocumented in this encounter Additional Health Concerns Infection Onset Date Last Indicated Resolved Time COVID-19 - Suspected infection 08/06/2022 08/06/2022 08/06/2022 8:34 PM EDT COVID-19 - Confirmed infection 08/06/2022 08/06/2022 09/05/2022 10:32 PM EDT documented as of this encounter Care Teams Gas Leak Inspector Relationship Specialty Start Date End Date Dylan Shabazz [address] [place] [address] PCP - General Internal Medicine 07/05/19 documented as of this encounter
--- OUTSIDE RECORDS SUMMARY | 2025-03-05 18:05 | XMS_ITS | Clinical Summary ---
Author Organization [facility] Address [address] [place] [address] Care Team Providers Care Oxyacetylene Torch Operator Name Role Phone Dylan Shabazz MD Primary Care Provider [phone] Allergies No known active allergies Medications amLODIPine [...] Last Done Comments Hepatitis C Screening 1950 Pneumococcal 50+ years (1 of 1 - [...] complete this topic Zoster (Zostavax) Discontinued Insurance [facility] FFS ONE CARE Care Teams Oxyacetylene Torch Operator Relationship Specialty Start Date End Date Dylan Shabazz MD [address] [place] [address] PCP - General Internal Medicine 11/14/19
== END 2025-03-05 15:34 | disposition home or self-care (01) ==
LOC: HO.HMCH 14:38
PROVIDERS: PCP Internal Medicine; Visit Provider Internal Medicine
DX: E11.9 Type 2 diabetes mellitus without complications (principal)

== ENCOUNTER → 2025-03-05 14:37 | Outpatient (BNVA) | payer OTHER, SELFPAY | PROVIDERS: Visit Provider Internal Medicine | DX: E11.65 Type 2 diabetes mellitus with hyperglycemia (principal) | CPT/HCPCS: 96127; 99212 ==